=== PATIENT | female | born 1960 | race Caucasian/White ===

== ENCOUNTER → 2016-08-30 | Outpatient (CLI) | payer SELFPAY | LOC: RAD 13:37 | PROVIDERS: ATTEND Family Medicine | DX: M54.5 Low back pain (principal) | CPT/HCPCS: 72110 ==

== ENCOUNTER 2016-10-28 16:33 | Emergency (ER) | payer SELFPAY ==
[2016-10-28 17:51] LABS: ABSOLUTE EOSINOPHILS # (AUTO) 0.2 10^3/uL (0.0-0.6); ABSOLUTE LYMPHOCYTES (AUTO) 1.8 10^3/uL (0.5-4.7); ABSOLUTE MONOCYTES (AUTO) 0.4 10^3/uL (0.1-1.4); ABSOLUTE NEUT (AUTO) 3.1 10^3/uL (1.7-8.2); BASOPHILS % (AUTO) 0.7 % (0-2); EOSINOPHILS % (AUTO) 2.9 % (0-6); HEMATOCRIT 35.3 % (36.0-47.0); HGB HCT DIFFERENCE 0.7; LYMPHOCYTES % (AUTO) 32.3 % (13-45); MEAN CORPUSCULAR HEMOGLOBIN 30.4 pg (27.0-33.4); MEAN CORPUSCULAR HGB CONC 33.9 g/dL (32.0-36.0); MEAN CORPUSCULAR VOLUME 90 fl (80-97); MONOCYTES % (AUTO) 7.9 % (3-13); RED BLOOD COUNT 3.93 10^6/uL (3.72-5.28); RED CELL DISTRIBUTION WIDTH 13.5 % (11.5-14.0); SEGMENTED NEUTROPHILS % (AUTO) 56.2 % (42-78); WHITE BLOOD COUNT 5.5 10^3/uL (4.0-10.5)
[2016-10-28 17:54] LABS: APPEARANCE,URINE CLEAR; BILIRUBIN,URINE NEGATIVE (NEGATIVE); GLUCOSE, URINE >=500 mg/dL (NEGATIVE); KETONES,URINE NEGATIVE (NEGATIVE); LEUKOCYTE ESTERASE,URINE NEGATIVE (NEGATIVE); NITRITE,URINE NEGATIVE (NEGATIVE); PROTEIN,URINE NEGATIVE (NEGATIVE); URINE SPECIFIC GRAVITY 1.016; UROBILINOGEN,URINE NEGATIVE mg/dL (<2.0)
[2016-10-28 18:07] LABS: ALANINE AMINOTRANSFERASE 33 U/L (9-52); ALBUMIN 4.2 g/dL (3.5-5.0); ALKALINE PHOSPHATASE 86 U/L (38-126); ANION GAP 13 (5-19); ASPARTATE AMINO TRANSFERASE 20 U/L (14-36); BILIRUBIN,DIRECT 0.4 mg/dL (0.0-0.4); BILIRUBIN,TOTAL 0.7 mg/dL (0.2-1.3); BLOOD UREA NITROGEN 33 mg/dL (7-20); CALCIUM 9.9 mg/dL (8.4-10.2); CARBON DIOXIDE 29 mmol/L (22-30); CHLORIDE 93 mmol/L (98-107); CREATININE RESULT 1.34 mg/dL (0.52-1.25); GLUCOSE 314 mg/dL (75-110); MAGNESIUM 1.7 mg/dL (1.6-2.3); POTASSIUM 4.1 mmol/L (3.6-5.0); SODIUM 134.9 mmol/L (137-145); TOTAL PROTEIN 7.1 g/dL (6.3-8.2)
[2016-10-28] MEDS ORDERED: ONDANSETRON HCL INJ/PF 4 MG/2 ML SDV IV ONE (19:06)
[2016-10-28] MEDS ORDERED: NORMAL SALINE 1000 ML 1,000 ML IV ONE (19:06)
--- NOTE | 2016-10-28 19:30 | ER Document Report ---
ED General - General Chief Complaint: High Blood Sugar Stated Complaint: SUGAR ISSUE Time Seen by Provider: 10/28/16 17:15 Mode of Arrival: Ambulatory Information source: Patient Notes: 56-year-old female history of diabetes presents with complaints of feeling dizzy. Patient notes her blood sugar has been elevated over the past few days. If it was in the 300s. Patient is on metformin 250 mg daily. Denies any fevers or chills TRAVEL OUTSIDE OF THE [place] IN LAST 30 DAYS: No - HPI Onset: Last week Onset/Duration: Persistent Quality of pain: No pain Severity: Mild Pain Level: Denies Associated symptoms: Weakness Exacerbated by: Denies Relieved by: Denies Similar symptoms previously: Yes Recently seen / treated by doctor: Yes - Related Data Allergies/Adverse Reactions: pseudoephedrine HCl [From Actifed] Allergy (Verified 10/28/16 17:10) ramipril [From Altace] Allergy (Verified 10/28/16 17:10) triprolidine HCl [From Actifed] Allergy (Verified 10/28/16 17:10) lisinopril [Lisinopril] Adverse Reaction (Intermediate, Verified 10/28/16 17:10) Past Medical History - Social History Smoking Status: Never Smoker Cigarette use (# per day): No Chew tobacco use (# tins/day): No Smoking Education Provided: No Frequency of alcohol use: None Drug Abuse: None Family History: CAD, DM, Hypertension, Malignancy - Colon cancer and leukemia, Other - COPD - Past Medical History Cardiac Medical History: Reports: Hx Hypercholesterolemia, Hx Hypertension Denies: Hx Coronary Artery Disease, Hx Heart Attack Pulmonary Medical History: Denies: Hx Asthma, Hx Bronchitis, Hx COPD, Hx Pneumonia Neurological Medical History: Denies: Hx Cerebrovascular Accident, Hx Seizures Endocrine Medical History: Reports: Hx Diabetes Mellitus Type 2 Renal/ Medical History: Denies: Hx Peritoneal Dialysis GI Medical History: Reports: Hx Gastritis, Hx Gastroesophageal Reflux Disease, Hx Irritable Bowel Musculoskeltal Medical History: Reports Hx Arthritis, Reports Hx Fibromyalgia Psychiatric Medical History: Reports: Hx Anxiety, Hx Depression Past Surgical History: Reports: Hx Appendectomy, Hx Section, Hx Cholecystectomy, Hx Orthopedic Surgery - L foot, Hx Tonsillectomy - addenoids, Hx Tubal Ligation. Denies: Hx Hysterectomy, Hx Pacemaker - Immunizations Hx Diphtheria, Pertussis, Tetanus Vaccination: Yes Hx Pneumococcal Vaccination: 06/03/00 Review of Systems - Review of Systems Notes: PHYSICAL EXAMINATION: GENERAL: Well-appearing, well-nourished and in no acute distress. HEAD: Atraumatic, normocephalic. EYES: Pupils equal round and reactive to light, extraocular movements intact, conjunctiva are normal. ENT: Nares patent, oropharynx clear without exudates. Moist mucous membranes. NECK: Normal range of motion, supple without lymphadenopathy LUNGS: Breath sounds clear to auscultation bilaterally and equal. No wheezes rales or rhonchi. HEART: Regular rate and rhythm without murmurs ABDOMEN: Soft, nontender, nondistended abdomen. No guarding, no rebound. No masses appreciated. Female : deferred Musculoskeletal: Normal range of motion, no pitting or edema. No cyanosis. NEUROLOGICAL: Cranial nerves grossly intact. Normal speech, normal gait. Normal sensory, motor exams PSYCH: Normal mood, normal affect. SKIN: Warm, Dry, normal turgor, no rashes or lesions noted. Physical Exam - Vital signs Vitals: Temp Pulse Resp BP Pulse Ox 97.8 F 83 18 151/98 H 100 10/28/16 16:38 10/28/16 16:38 10/28/16 16:38 10/28/16 16:38 10/28/16 16:38 Course - Re-evaluation Re-evalutation: 10/28/16 19:29 Is pending at this time, IV fluids nausea control provided to the patient 10/28/16 23:30 Blood sugar has improved after IV fluids she is otherwise stable in no distress. Given that her lab work otherwise looks well I believe she is stable for discharge. I will increase her metformin to 500 mg given that her hemoglobin A1c is elevated After performing a Medical Screening Examination, I estimate there is LOW risk for ACUTE APPENDICITIS, BOWEL OBSTRUCTION, ACUTE CHOLECYSTITIS, PERFORATED DIVERTICULITIS, INCARCERATED HERNIA, PANCREATITIS, PELVIC INFLAMMATORY DISEASE, PERFORATED ULCER, ECTOPIC , or TUBO-OVARIAN ABSCESS, thus I consider the discharge disposition reasonable. Also, there is no evidence or peritonitis , sepsis, or toxicity. I have reevaluated this patient multiple times and no significant life threatening changes are noted. The patient and I have discussed the diagnosis and risks, and we agree with discharging home with close follow-up with the understanding that symptoms and presentations can change. We also discussed returning to the Emergency Department immediately if new or worsening symptoms occur. We have discussed the symptoms which are most concerning (e.g., bloody stool, fever, changing or worsening pain, vomiting) that necessitate immediate return. - Vital Signs Vital signs: Temp Pulse Resp BP Pulse Ox 97.8 F 83 18 158/87 H 97 10/28/16 16:38 10/28/16 16:38 10/28/16 16:38 10/28/16 21:41 10/28/16 21:39 - Laboratory Result Diagrams: 10/28/16 17:36 10/28/16 17:36 Laboratory results interpreted by me: 10/28/16 10/28/16 10/28/16 17:36 17:36 17:36 Hct 35.3 L Sodium 134.9 L Chloride 93 L BUN 33 H Creatinine 1.34 H Est GFR ( Amer) 50 L Est GFR (Non-Af Amer) 41 L Glucose 314 H Hemoglobin A1c % 10.8 H Urine Glucose (UA) Urine Blood 10/28/16 17:36 Hct Sodium Chloride BUN Creatinine Est GFR ( Amer) Est GFR (Non-Af Amer) Glucose Hemoglobin A1c % Urine Glucose (UA) >=500 H Urine Blood SMALL H Discharge - Discharge Clinical Impression: Hyperglycemia, Nausea Abdominal pain Qualifiers: Abdominal location: generalized Qualified Code(s): R10.84 - Generalized abdominal pain Condition: Stable Disposition: HOME, SELF-CARE Instructions: Hyperglycemia ([facility]) Additional Instructions: Please increase your Metformin to 500 mg and follow-up with your primary care physician. Keep a log for your pcp Return immediately if there are any other concerns
[2016-10-28 19:47] LABS: VENOUS BLOOD BASE EXCESS 1.7 mmol/L; VENOUS BLOOD HCO3 27.3 mmol/L (20-32); VENOUS BLOOD PCO2 46.9 mmHg (35-63); VENOUS BLOOD PH 7.38 (7.30-7.42)
[2016-10-28 21:53] VITALS: BP 158/87
== END 2016-10-28 21:52 | disposition home or self-care (01) ==
LOC: ER 16:33
DX: E11.65 Type 2 diabetes mellitus with hyperglycemia (principal); R11.0 Nausea; R10.84 Generalized abdominal pain; R42 Dizziness and giddiness
CPT/HCPCS: 99285; 96374; 36415; 82962; 83735; 85025; 80053; 81001; 83036; 82803; J2405; J7030

== ENCOUNTER 2017-02-27 10:23 | Emergency (ER) | payer SELFPAY ==
[2017-02-27] MEDS ORDERED: NORMAL SALINE 1000 ML 1,000 ML IV PRN (11:02)
[2017-02-27 11:42] LABS: ABSOLUTE EOSINOPHILS # (AUTO) 0.1 10^3/uL (0.0-0.6); ABSOLUTE LYMPHOCYTES (AUTO) 1.4 10^3/uL (0.5-4.7); ABSOLUTE MONOCYTES (AUTO) 0.4 10^3/uL (0.1-1.4); ABSOLUTE NEUT (AUTO) 3.5 10^3/uL (1.7-8.2); BASOPHILS % (AUTO) 0.6 % (0-2); EOSINOPHILS % (AUTO) 1.7 % (0-6); HEMOGLOBIN 12.6 g/dL (12.0-15.5); HGB HCT DIFFERENCE 0.8; LYMPHOCYTES % (AUTO) 25.2 % (13-45); MEAN CORPUSCULAR HEMOGLOBIN 29.8 pg (27.0-33.4); MEAN CORPUSCULAR HGB CONC 34.2 g/dL (32.0-36.0); MEAN CORPUSCULAR VOLUME 87 fl (80-97); RED BLOOD COUNT 4.24 10^6/uL (3.72-5.28); RED CELL DISTRIBUTION WIDTH 13.3 % (11.5-14.0); SEGMENTED NEUTROPHILS % (AUTO) 65.5 % (42-78); WHITE BLOOD COUNT 5.4 10^3/uL (4.0-10.5)
[2017-02-27] MEDS ORDERED: INSULIN REG, HUMAN 100 UNIT/ML 3 ML VIAL (PYX) IV ONE (11:44)
[2017-02-27 11:46] LABS: VENOUS BLOOD BASE EXCESS -1.4 mmol/L; VENOUS BLOOD HCO3 24.7 mmol/L (20-32); VENOUS BLOOD PCO2 47.3 mmHg (35-63); VENOUS BLOOD PH 7.34 (7.30-7.42)
[2017-02-27 12:03] LABS: ALANINE AMINOTRANSFERASE 26 U/L (9-52); ALBUMIN 4.3 g/dL (3.5-5.0); ALKALINE PHOSPHATASE 101 U/L (38-126); ANION GAP 13 (5-19); ASPARTATE AMINO TRANSFERASE 15 U/L (14-36); BILIRUBIN,DIRECT 0.4 mg/dL (0.0-0.4); BILIRUBIN,TOTAL 0.9 mg/dL (0.2-1.3); BLOOD UREA NITROGEN 36 mg/dL (7-20); CALCIUM 9.8 mg/dL (8.4-10.2); CARBON DIOXIDE 27 mmol/L (22-30); CHLORIDE 89 mmol/L (98-107); CREATININE RESULT 1.33 mg/dL (0.52-1.25); POTASSIUM 4.5 mmol/L (3.6-5.0); SODIUM 129.3 mmol/L (137-145)
[2017-02-27 12:12] LABS: GLUCOSE 525 mg/dL (75-110)
--- NOTE | 2017-02-27 12:52 | ER Document Report ---
ED General - General Chief Complaint: High Blood Sugar Stated Complaint: BLOOD SUGAR CONCERNS ABDOMINAL PAIN Time Seen by Provider: 02/27/17 10:34 Mode of Arrival: Ambulatory Information source: Patient Notes: 57-year-old diabetic female presents with complaints of high blood sugar. Patient has symptoms of been ongoing for 2 weeks blood sugars have been in the 4 -500s. Patient denies any nausea vomiting admits to generalized not feeling well denies any fevers or chills or any signs of pain or infection. Patient notes she takes 1000 mg of metformin twice daily as well as glyburide 5 mg twice daily TRAVEL OUTSIDE OF THE [place] IN LAST 30 DAYS: No - HPI Onset: Other - 2 weeks Onset/Duration: Persistent Quality of pain: No pain Severity: Mild Pain Level: Denies Associated symptoms: Weakness Exacerbated by: Denies Relieved by: Denies Similar symptoms previously: Yes Recently seen / treated by doctor: Yes - Related Data Allergies/Adverse Reactions: pseudoephedrine HCl [From Actifed] Allergy (Verified 02/27/17 10:28) ramipril [From Altace] Allergy (Verified 02/27/17 10:28) triprolidine HCl [From Actifed] Allergy (Verified 02/27/17 10:28) lisinopril [Lisinopril] Adverse Reaction (Intermediate, Verified 02/27/17 10:28) Home Medications: Current Home Medications Chlordiazepoxide/Clidinium Br [Chlordiazepoxide-Clidinium Cap] 1 each PO DAILY 02/27/17 [History] Clonazepam [Clonazepam] 0.5 mg PO BID PRN 02/27/17 [History] Cyclobenzaprine HCl 10 mg PO TID PRN 02/27/17 [History] Glyburide [Glyburide] 5 mg PO QAM 02/27/17 [History] Oxycodone HCl/Acetaminophen [Percocet 10-325 Mg Tablet] 1 each PO BID PRN [History] Triamterene/Hydrochlorothiazid [Triamterene-Hctz 37.5-25 mg Tb] 1 each PO DAILY 02/27/17 [History] Past Medical History - Social History Smoking Status: Never Smoker Cigarette use (# per day): No Chew tobacco use (# tins/day): No Smoking Education Provided: No Frequency of alcohol use: None Drug Abuse: None Family History: CAD, DM, Hypertension, Malignancy - Colon cancer and leukemia, Other - COPD - Past Medical History Cardiac Medical History: Reports: Hx Hypercholesterolemia, Hx Hypertension Denies: Hx Coronary Artery Disease, Hx Heart Attack Pulmonary Medical History: Denies: Hx Asthma, Hx Bronchitis, Hx COPD, Hx Pneumonia Neurological Medical History: Denies: Hx Cerebrovascular Accident, Hx Seizures Endocrine Medical History: Reports: Hx Diabetes Mellitus Type 2 Renal/ Medical History: Denies: Hx Peritoneal Dialysis GI Medical History: Reports: Hx Gastritis, Hx Gastroesophageal Reflux Disease, Hx Irritable Bowel Musculoskeltal Medical History: Reports Hx Arthritis, Reports Hx Fibromyalgia Psychiatric Medical History: Reports: Hx Anxiety, Hx Depression Past Surgical History: Reports: Hx Appendectomy, Hx Section, Hx Cholecystectomy, Hx Orthopedic Surgery - L foot, Hx Tonsillectomy - addenoids, Hx Tubal Ligation. Denies: Hx Hysterectomy, Hx Pacemaker - Immunizations Hx Diphtheria, Pertussis, Tetanus Vaccination: Yes Hx Pneumococcal Vaccination: 06/03/00 Review of Systems - Review of Systems Notes: REVIEW OF SYSTEMS: CONSTITUTIONAL : Denies fever, chills, or sweats. Denies recent illness. EENT: Denies eye, ear, throat, or mouth pain or symptoms. Denies nasal or sinus congestion or discharge. Denies throat, tongue, or mouth swelling or difficulty swallowing. CARDIOVASCULAR: Denies chest pain. Denies palpitations or racing or irregular heart beat. Denies ankle edema. RESPIRATORY: Denies cough, cold, or chest congestion. Denies shortness of breath, difficulty breathing, or wheezing. GASTROINTESTINAL: Denies abdominal pain or distention. Denies nausea, vomiting , or diarrhea. Denies blood in vomitus, stools, or per rectum. Denies black, tarry stools. Denies constipation. GENITOURINARY: Denies difficulty urinating, painful urination, burning, frequency, blood in urine, or discharge. FEMALE GENITOURINARY: Denies vaginal bleeding, heavy or abnormal periods, irregular periods. Denies vaginal discharge or odor. MUSCULOSKELETAL: Denies back or neck pain or stiffness. Denies joint pain or swelling. SKIN: Denies rash, lesions or sores. HEMATOLOGIC : Denies easy bruising or bleeding. LYMPHATIC: Denies swollen, enlarged glands. NEUROLOGICAL: Admits to generalized weakness PSYCHIATRIC: Denies anxiety or stress. Denies depression, suicidal ideation, or homicidal ideation. ALL OTHER SYSTEMS REVIEWED AND NEGATIVE. PHYSICAL EXAMINATION: GENERAL: Well-appearing, well-nourished and in no acute distress. HEAD: Atraumatic, normocephalic. EYES: Pupils equal round and reactive to light, extraocular movements intact, conjunctiva are normal. ENT: Nares patent, oropharynx clear without exudates. Moist mucous membranes. NECK: Normal range of motion, supple without lymphadenopathy LUNGS: Breath sounds clear to auscultation bilaterally and equal. No wheezes rales or rhonchi. HEART: Regular rate and rhythm without murmurs ABDOMEN: Soft, nontender, nondistended abdomen. No guarding, no rebound. No masses appreciated. Female : deferred Musculoskeletal: Normal range of motion, no pitting or edema. No cyanosis. NEUROLOGICAL: Cranial nerves grossly intact. Normal speech, normal gait. Normal sensory, motor exams PSYCH: Normal mood, normal affect. SKIN: Warm, Dry, normal turgor, no rashes or lesions noted. Dictation was performed using [employer] voice recognition software Physical Exam - Vital signs Vitals: Temp Pulse Resp BP Pulse Ox 97.5 F 90 18 135/95 H 100 02/27/17 10:27 02/27/17 10:27 02/27/17 10:27 02/27/17 10:27 02/27/17 10:27 Course - Re-evaluation Re-evalutation: 02/27/17 12:52 Blood sugar was quite elevated, lab work otherwise notes no significant abnormality, there is no signs of diabetic ketoacidosis at this time. I will bring patient's blood sugar down and speak with hospitalist regarding outpatient treatment 02/27/17 16:09 Patient's blood sugar has improved significantly after fluids and insulin, I asked the patient to please call her primary care physician immediately upon discharge so that they can change her medications around Patient states she will do so and otherwise feels much better After performing a Medical Screening Examination, I estimate there is LOW risk for RUPTURED ESOPHAGUS, PNEUMOTHORAX, PULMONARY EMBOLISM, ACUTE CORONARY SYNDROME, OR THORACIC AORTIC DISSECTION, thus I consider the discharge disposition reasonable. I have reevaluated this patient multiple times and no significant life threatening changes are noted. The patient and I have discussed the diagnosis and risks, and we agree with discharging home with close follow-up. We also discussed returning to the Emergency Department immediately if new or worsening symptoms occur. We have discussed the symptoms which are most concerning (e.g., bloody sputum, worsening pain or shortness of breath) that necessitate immediate return. - Vital Signs Vital signs: Temp Pulse Resp BP Pulse Ox 98.0 F 86 16 131/79 H 100 02/27/17 13:41 02/27/17 13:41 02/27/17 13:41 02/27/17 13:41 02/27/17 13:41 - Laboratory Result Diagrams: 02/27/17 11:20 02/27/17 11:20 Laboratory results interpreted by me: 02/27/17 02/27/17 02/27/17 10:32 11:20 11:20 Sodium 129.3 L Chloride 89 L BUN 36 H Creatinine 1.33 H Est GFR ( Amer) 50 L Est GFR (Non-Af Amer) 41 L Glucose 525 H* POC Glucose 523 H* Hemoglobin A1c % 12.1 H Urine Glucose (UA) Urine Blood 02/27/17 13:10 Sodium Chloride BUN Creatinine Est GFR ( Amer) Est GFR (Non-Af Amer) Glucose POC Glucose Hemoglobin A1c % Urine Glucose (UA) >=500 H Urine Blood SMALL H Critical Care Note - Critical Care Note Total time excluding time spent on procedures (mins): 37 Comments: 37 minutes of critical care time spent in direct contact evaluating and reevaluating the patient, treating symptoms, reviewing labs and studies and speaking with family and consultants excluding any procedures Discharge - Discharge Clinical Impression: Hyperglycemia Condition: Stable Disposition: HOME, SELF-CARE Instructions: Hyperglycemia ([facility]) Additional Instructions: Please contact Dr. Rene for further evaluation and care Return immediately if there are any other concerns Referrals: CAITLIN RENE MD [Primary Care Provider] - Follow up as needed
[2017-02-27 13:43] VITALS: BP 131/79
[2017-02-27 13:49] LABS: APPEARANCE,URINE SLIGHTLY-CLOUDY; BILIRUBIN,URINE NEGATIVE (NEGATIVE); GLUCOSE, URINE >=500 mg/dL (NEGATIVE); KETONES,URINE NEGATIVE (NEGATIVE); LEUKOCYTE ESTERASE,URINE NEGATIVE (NEGATIVE); NITRITE,URINE NEGATIVE (NEGATIVE); PROTEIN,URINE NEGATIVE (NEGATIVE); URINE SPECIFIC GRAVITY 1.015; UROBILINOGEN,URINE NEGATIVE mg/dL (<2.0)
== END 2017-02-27 14:41 | disposition home or self-care (01) ==
LOC: ER 10:23
DX: E11.65 Type 2 diabetes mellitus with hyperglycemia (principal); Z79.84 Long term (current) use of oral hypoglycemic drugs; R53.1 Weakness; I10 Essential (primary) hypertension; Z88.8 Allergy status to other drugs, medicaments and biological substances
CPT/HCPCS: 99291; 96360; 96361; 36415; 82962; 85025; 80053; 81001; 83036; 82803; J1815; J7030

== ENCOUNTER 2018-01-14 09:18 | Emergency (ER) | payer SELFPAY ==
[2018-01-14] MEDS ORDERED: NORMAL SALINE 1000 ML 1,000 ML IV ONE ×2 (10:09→11:01)
[2018-01-14] MEDS ORDERED: ONDANSETRON HCL INJ/PF 4 MG/2 ML SDV IV ONE (10:09)
[2018-01-14] MEDS ORDERED: INSULIN REG, HUMAN 100 UNIT/ML 3 ML VIAL (PYX) SUBCUT ONE (10:15)
--- NOTE | 2018-01-14 10:16 | ER Document Report ---
ED General - General Chief Complaint: High Blood Sugar Stated Complaint: ELEVATED BLOOD SUGAR Time Seen by Provider: 01/14/18 10:05 TRAVEL OUTSIDE OF THE [place] IN LAST 30 DAYS: No - HPI Patient complains to provider of: Elevated blood sugar Notes: Patient coming in for evaluation of low blood sugar. Patient has history of diabetes hypertension. Patient sees Dr. Rene at the [facility]. Patient states compliant with her Lantus 15 units each morning and at nighttime. Patient states also had some nausea and mild abdominal pain. Patient denies any recent travel trauma or recent antibiotics. Patient resting comfortably upon my evaluation. Patient previous visits were reviewed showing hemoglobin A1c is greater than 10. - Related Data Allergies/Adverse Reactions: pseudoephedrine HCl [From Actifed] Allergy (Verified 01/14/18 09:23) ramipril [From Altace] Allergy (Verified 01/14/18 09:23) triprolidine HCl [From Actifed] Allergy (Verified 01/14/18 09:23) lisinopril [Lisinopril] Adverse Reaction (Intermediate, Verified 01/14/18 09:23) Past Medical History - Social History Smoking Status: Current Every Day Smoker Chew tobacco use (# tins/day): No Frequency of alcohol use: None Drug Abuse: None Family History: CAD, DM, Hypertension, Malignancy - Colon cancer and leukemia, Other - COPD Patient has suicidal ideation: No Patient has homicidal ideation: No - Past Medical History Cardiac Medical History: Reports: Hx Hypercholesterolemia, Hx Hypertension Denies: Hx Coronary Artery Disease, Hx Heart Attack Pulmonary Medical History: Denies: Hx Asthma, Hx Bronchitis, Hx COPD, Hx Pneumonia Neurological Medical History: Denies: Hx Cerebrovascular Accident, Hx Seizures Endocrine Medical History: Reports: Hx Diabetes Mellitus Type 2 Renal/ Medical History: Denies: Hx Peritoneal Dialysis GI Medical History: Reports: Hx Gastritis, Hx Gastroesophageal Reflux Disease, Hx Irritable Bowel Musculoskeletal Medical History: Reports Hx Arthritis, Reports Hx Fibromyalgia Psychiatric Medical History: Reports: Hx Anxiety, Hx Depression Past Surgical History: Reports: Hx Appendectomy, Hx Section, Hx Cholecystectomy, Hx Orthopedic Surgery - L foot, Hx Tonsillectomy - addenoids, Hx Tubal Ligation. Denies: Hx Hysterectomy, Hx Pacemaker - Immunizations Hx Diphtheria, Pertussis, Tetanus Vaccination: Yes Hx Pneumococcal Vaccination: 01/01/01 Review of Systems - Review of Systems Constitutional: Other - Elevated blood sugar nausea abdominal pain EENT: No symptoms reported Cardiovascular: No symptoms reported Respiratory: No symptoms reported Gastrointestinal: No symptoms reported Genitourinary: No symptoms reported Female Genitourinary: No symptoms reported Musculoskeletal: No symptoms reported Skin: No symptoms reported Hematologic/Lymphatic: No symptoms reported Neurological/Psychological: No symptoms reported Physical Exam - Vital signs Interpretation: Normal - General General appearance: Appears well, Alert - HEENT Head: Normocephalic, Atraumatic Eyes: Normal Pupils: PERRL - Respiratory Respiratory status: No respiratory distress Chest status: Nontender Breath sounds: Normal Chest palpation: Normal - Cardiovascular Rhythm: Regular Heart sounds: Normal auscultation Murmur: No - Abdominal Inspection: Normal Distension: No distension Bowel sounds: Normal Tenderness: Nontender Organomegaly: No organomegaly - Back Back: Normal, Nontender - Extremities General upper extremity: Normal inspection, Nontender, Normal color, Normal ROM , Normal temperature General lower extremity: Normal inspection, Nontender, Normal color, Normal ROM , Normal temperature, Normal weight bearing. No: Sandee's sign - Neurological Neuro grossly intact: Yes Cognition: Normal Orientation: AAOx4 [place] Coma Scale Eye Opening: Spontaneous [place] Coma Scale Verbal: Oriented Eddie Coma Scale Motor: Obeys Commands Eddie Coma Scale Total: 15 Speech: Normal Motor strength normal: LUE, RUE, LLE, RLE Sensory: Normal - Psychological Associated symptoms: Normal affect, Normal mood - Skin Skin Temperature: Warm Skin Moisture: Dry Skin Color: Normal Course - Re-evaluation Re-evalutation: 01/14/18 20:10 No signs of DKA tedious and the patient has laboratory studies. Patient does have some hyperkalemia however this is more likely now been treated with IV fluids and the insulin provided. Patient feeling better blood sugar is downtrending patient is continue all medications. Did have a director social service contact the patient so they can establish follow-up patient states understanding will be discharged home. - Laboratory Result Diagrams: 01/14/18 10:11 01/14/18 10:11 Laboratory results interpreted by me: 01/14/18 01/14/18 01/14/18 10:11 10:11 10:11 Seg Neutrophils % 80.3 H Sodium 134.5 L Potassium 5.4 H Chloride 94 L BUN 24 H Est GFR ( Amer) 59 L Est GFR (Non-Af Amer) 49 L Glucose 583 H* POC Glucose Hemoglobin A1c % 10.8 H Alkaline Phosphatase 130 H 01/14/18 01/14/18 10:25 12:07 Seg Neutrophils % Sodium Potassium Chloride BUN Est GFR ( Amer) Est GFR (Non-Af Amer) Glucose POC Glucose > 550 H* 395 H Hemoglobin A1c % Alkaline Phosphatase Discharge - Discharge Clinical Impression: Hyperglycemia, Nausea Condition: Good Disposition: HOME, SELF-CARE Instructions: Hyperglycemia ([facility]), Nausea or Vomiting, Nonspecific ([facility]) Additional Instructions: Laboratories there is no urine critical pathology at this time. Will recommend she follow-up with her primary care physician and return to the ER symptoms worsen. Please take all your medication as previously prescribed. Prescriptions: Ondansetron [Zofran Odt] 4 mg PO Q6 PRN #30 tab.rapdis PRN Reason: For Nausea/Vomiting Referrals: CAITLIN RENE MD [Primary Care Provider] - Follow up as needed
[2018-01-14 10:27] LABS: ABSOLUTE BASOPHILS # (AUTO) 0.1 10^3/uL (0.0-0.2); ABSOLUTE EOSINOPHILS # (AUTO) 0.1 10^3/uL (0.0-0.6); ABSOLUTE LYMPHOCYTES (AUTO) 1.1 10^3/uL (0.5-4.7); ABSOLUTE MONOCYTES (AUTO) 0.4 10^3/uL (0.1-1.4); ABSOLUTE NEUT (AUTO) 6.7 10^3/uL (1.7-8.2); BASOPHILS % (AUTO) 0.8 % (0-2); HEMATOCRIT 41.7 % (36.0-47.0); HEMOGLOBIN 14.4 g/dL (12.0-15.5); MEAN CORPUSCULAR HEMOGLOBIN 30.5 pg (27.0-33.4); MEAN CORPUSCULAR HGB CONC 34.5 g/dL (32.0-36.0); MEAN CORPUSCULAR VOLUME 88 fl (80-97); MONOCYTES % (AUTO) 4.9 % (3-13); PLATELET COUNT 222 10^3/uL (150-450); RED BLOOD COUNT 4.71 10^6/uL (3.72-5.28); RED CELL DISTRIBUTION WIDTH 13.7 % (11.5-14.0); SEGMENTED NEUTROPHILS % (AUTO) 80.3 % (42-78); TOTAL CELLS COUNTED % (AUTO) 100 %; WHITE BLOOD COUNT 8.3 10^3/uL (4.0-10.5)
[2018-01-14 10:39] LABS: ALANINE AMINOTRANSFERASE 16 U/L (9-52); ALBUMIN 4.3 g/dL (3.5-5.0); ALKALINE PHOSPHATASE 130 U/L (38-126); ANION GAP 11 (5-19); ASPARTATE AMINO TRANSFERASE 15 U/L (14-36); BILIRUBIN,DIRECT 0.3 mg/dL (0.0-0.4); BILIRUBIN,TOTAL 0.7 mg/dL (0.2-1.3); BLOOD UREA NITROGEN 24 mg/dL (7-20); CALCIUM 9.8 mg/dL (8.4-10.2); CARBON DIOXIDE 30 mmol/L (22-30); CHLORIDE 94 mmol/L (98-107); LIPASE 112.2 U/L (23-300); POTASSIUM 5.4 mmol/L (3.6-5.0); SODIUM 134.5 mmol/L (137-145); TOTAL PROTEIN 7.6 g/dL (6.3-8.2)
[2018-01-14 10:54] LABS: GLUCOSE 583 mg/dL (75-110)
== END 2018-01-14 12:43 | disposition home or self-care (01) ==
LOC: ER 09:18
DX: E11.65 Type 2 diabetes mellitus with hyperglycemia (principal); Z79.4 Long term (current) use of insulin; E87.5 Hyperkalemia; I10 Essential (primary) hypertension; R11.0 Nausea; R10.9 Unspecified abdominal pain; F17.200 Nicotine dependence, unspecified, uncomplicated; Z88.8 Allergy status to other drugs, medicaments and biological substances
CPT/HCPCS: 99285; 96361; 96374; 36415; 82962; 83690; 85025; 80053; 83036; J1815; J2405; J7030

== ENCOUNTER 2018-03-06 17:32 | Emergency (ER) | payer SELFPAY ==
[2018-03-06 17:40] VITALS: BP 135/99
--- NOTE | 2018-03-06 17:58 | ER Document Report ---
ED Medical Screen (RME) - General Chief Complaint: High Blood Sugar Stated Complaint: BLOOD SUGAR ISSUES Time Seen by Provider: 03/06/18 17:54 Notes: 58-year-old poorly controlled diabetic complains of increased blood sugars for 5 days running in the 470 500 range and "cannot get it down". She also complains of blood pressure being elevated, legs are so weak she has trouble standing, has pain in her kidneys, and is having chest pain around her pancreas. There is no history of vomiting or fever. I have greeted and performed a rapid initial assessment of this patient. A comprehensive ED assessment and evaluation of the patient, analysis of test results and completion of the medical decision making process will be conducted by additional ED providers. TRAVEL OUTSIDE OF THE [place] IN LAST 30 DAYS: No - Related Data Allergies/Adverse Reactions: pseudoephedrine HCl [From Actifed] Allergy (Verified 03/06/18 17:35) ramipril [From Altace] Allergy (Verified 03/06/18 17:35) triprolidine HCl [From Actifed] Allergy (Verified 03/06/18 17:35) lisinopril [Lisinopril] Adverse Reaction (Intermediate, Verified 03/06/18 17:35) Past Medical History - Past Medical History Cardiac Medical History: Reports: Hx Hypercholesterolemia, Hx Hypertension Denies: Hx Coronary Artery Disease, Hx Heart Attack Pulmonary Medical History: Denies: Hx Asthma, Hx Bronchitis, Hx COPD, Hx Pneumonia Neurological Medical History: Denies: Hx Cerebrovascular Accident, Hx Seizures Endocrine Medical History: Reports: Hx Diabetes Mellitus Type 2 Renal/ Medical History: Denies: Hx Peritoneal Dialysis GI Medical History: Reports: Hx Gastritis, Hx Gastroesophageal Reflux Disease, Hx Irritable Bowel Musculoskeltal Medical History: Reports Hx Arthritis, Reports Hx Fibromyalgia Psychiatric Medical History: Reports: Hx Anxiety, Hx Depression Past Surgical History: Reports: Hx Appendectomy, Hx Section, Hx Cholecystectomy, Hx Orthopedic Surgery - L foot, Hx Tonsillectomy - addenoids, Hx Tubal Ligation. Denies: Hx Hysterectomy, Hx Pacemaker - Immunizations Hx Diphtheria, Pertussis, Tetanus Vaccination: Yes Physical Exam - Vital signs Vitals: Temp Pulse Resp BP Pulse Ox 97.4 F 85 16 135/99 H 98 03/06/18 17:39 03/06/18 17:39 03/06/18 17:39 03/06/18 17:39 03/06/18 17:39 Course - Vital Signs Vital signs: Temp Pulse Resp BP Pulse Ox 97.4 F 85 16 135/99 H 98 03/06/18 17:39 03/06/18 17:39 03/06/18 17:39 03/06/18 17:39 03/06/18 17:39 Doctor's Discharge - Discharge Referrals: CAITLIN SUMMERS MD [Primary Care Provider] - Follow up as needed
[2018-03-06 18:38] LABS: ABSOLUTE BASOPHILS # (AUTO) 0.1 10^3/uL (0.0-0.2); ABSOLUTE EOSINOPHILS # (AUTO) 0.1 10^3/uL (0.0-0.6); ABSOLUTE LYMPHOCYTES (AUTO) 1.5 10^3/uL (0.5-4.7); ABSOLUTE MONOCYTES (AUTO) 0.7 10^3/uL (0.1-1.4); ABSOLUTE NEUT (AUTO) 7.5 10^3/uL (1.7-8.2); BASOPHILS % (AUTO) 0.6 % (0-2); EOSINOPHILS % (AUTO) 0.7 % (0-6); HEMATOCRIT 43.5 % (36.0-47.0); HEMOGLOBIN 15.2 g/dL (12.0-15.5); LYMPHOCYTES % (AUTO) 15.2 % (13-45); MEAN CORPUSCULAR HEMOGLOBIN 30.8 pg (27.0-33.4); MEAN CORPUSCULAR HGB CONC 34.9 g/dL (32.0-36.0); MEAN CORPUSCULAR VOLUME 88 fl (80-97); MONOCYTES % (AUTO) 6.7 % (3-13); PLATELET COUNT 244 10^3/uL (150-450); RED BLOOD COUNT 4.92 10^6/uL (3.72-5.28); RED CELL DISTRIBUTION WIDTH 13.3 % (11.5-14.0); SEGMENTED NEUTROPHILS % (AUTO) 76.8 % (42-78); TOTAL CELLS COUNTED % (AUTO) 100 %; WHITE BLOOD COUNT 9.8 10^3/uL (4.0-10.5)
[2018-03-06 18:50] LABS: ALANINE AMINOTRANSFERASE 19 U/L (9-52); ALBUMIN 4.5 g/dL (3.5-5.0); ALKALINE PHOSPHATASE 122 U/L (38-126); ANION GAP 15 (5-19); ASPARTATE AMINO TRANSFERASE 17 U/L (14-36); BILIRUBIN,DIRECT 0.6 mg/dL (0.0-0.4); BILIRUBIN,TOTAL 1.1 mg/dL (0.2-1.3); BLOOD UREA NITROGEN 35 mg/dL (7-20); CALCIUM 9.7 mg/dL (8.4-10.2); CARBON DIOXIDE 31 mmol/L (22-30); CHLORIDE 84 mmol/L (98-107); CREATINE KINASE 35 U/L (30-135); LIPASE 226.9 U/L (23-300); POTASSIUM 4.1 mmol/L (3.6-5.0); SODIUM 129.8 mmol/L (137-145); TOTAL PROTEIN 7.5 g/dL (6.3-8.2)
[2018-03-06 18:59] LABS: GLUCOSE 557 mg/dL (75-110)
[2018-03-06 19:01] LABS: CREATINE KINASE MB 1.73 ng/mL (<4.55); TROPONIN I 0.013 ng/mL
[2018-03-06 19:28] LABS: APPEARANCE,URINE SLIGHTLY-CLOUDY; BILIRUBIN,URINE NEGATIVE (NEGATIVE); COLOR,URINE YELLOW; GLUCOSE, URINE >=500 mg/dL (NEGATIVE); KETONES,URINE TRACE mg/dL (NEGATIVE); LEUKOCYTE ESTERASE,URINE NEGATIVE (NEGATIVE); NITRITE,URINE NEGATIVE (NEGATIVE); PROTEIN,URINE NEGATIVE (NEGATIVE); URINE SPECIFIC GRAVITY 1.025; UROBILINOGEN,URINE NEGATIVE mg/dL (<2.0)
[2018-03-06] MEDS ORDERED: NORMAL SALINE 1000 ML 1,000 ML IV PRN (19:40)
[2018-03-06] MEDS ORDERED: ONDANSETRON HCL INJ/PF 4 MG/2 ML SDV IV ONE (19:42)
[2018-03-06] MEDS ORDERED: INSULIN REG, HUMAN 100 UNIT/ML 3 ML VIAL (PYX) SUBCUT ONE (20:03)
[2018-03-06] MEDS ORDERED: RINGERS SOLUTION,LACTATED 1,000 ML IV ONE (20:03)
[2018-03-06] MEDS ORDERED: INSULIN GLARGINE,HUM.REC.ANLOG 1,000 UNIT/10 ML UNIT SUBCUT ONE (20:04)
--- NOTE | 2018-03-06 20:11 | ER Document Report ---
ED General - General Chief Complaint: High Blood Sugar Stated Complaint: BLOOD SUGAR ISSUES Time Seen by Provider: 03/06/18 17:54 Notes: Patient is a 58-year-old female with a past medical history of hypertension, hyperlipidemia, type 2 diabetes with poor glycemic control who presents with concerns of hypoglycemia and feeling generally fatigued. The patient is very concerned because her blood sugars have been consistently 4500 for the past 1-2 weeks. She has been taking all medications as prescribed by her primary care doctor but states that this has not been adequately controlling her blood sugars. She has attempted to come reach out to her primary care doctor's office but has not received a call back. She denies any focal abdominal pain, shortness of breath, weakness, numbness or confusion. She reports that she has had some intermittent chest discomfort although none for the last 24-48 hours. Describes as a stabbing, aching pain diffuse to lead to her chest. She denies any current chest discomfort. She states that she has felt similar in the past when she has had out of control blood sugars. TRAVEL OUTSIDE OF THE [place] IN LAST 30 DAYS: No - Related Data Allergies/Adverse Reactions: pseudoephedrine HCl [From Actifed] Allergy (Verified 03/06/18 17:35) ramipril [From Altace] Allergy (Verified 03/06/18 17:35) triprolidine HCl [From Actifed] Allergy (Verified 03/06/18 17:35) lisinopril [Lisinopril] Adverse Reaction (Intermediate, Verified 03/06/18 17:35) Past Medical History - General Information source: Patient - Social History Smoking Status: Former Smoker Frequency of alcohol use: None Drug Abuse: None Lives with: Family Family History: CAD, DM, Hypertension, Malignancy - Colon cancer and leukemia, Other - COPD Patient has suicidal ideation: No Patient has homicidal ideation: No - Past Medical History Cardiac Medical History: Reports: Hx Hypercholesterolemia, Hx Hypertension Denies: Hx Coronary Artery Disease, Hx Heart Attack Pulmonary Medical History: Denies: Hx Asthma, Hx Bronchitis, Hx COPD, Hx Pneumonia Neurological Medical History: Denies: Hx Cerebrovascular Accident, Hx Seizures Endocrine Medical History: Reports: Hx Diabetes Mellitus Type 2 Renal/ Medical History: Denies: Hx Peritoneal Dialysis GI Medical History: Reports: Hx Gastritis, Hx Gastroesophageal Reflux Disease, Hx Irritable Bowel Musculoskeletal Medical History: Reports Hx Arthritis, Reports Hx Fibromyalgia Psychiatric Medical History: Reports: Hx Anxiety, Hx Depression Past Surgical History: Reports: Hx Appendectomy, Hx Section, Hx Cholecystectomy, Hx Orthopedic Surgery - L foot, Hx Tonsillectomy - addenoids, Hx Tubal Ligation. Denies: Hx Hysterectomy, Hx Pacemaker - Immunizations Hx Diphtheria, Pertussis, Tetanus Vaccination: Yes Hx Pneumococcal Vaccination: 06/03/00 Review of Systems - Review of Systems Notes: Constitutional: Negative for fever. HENT: Negative for sore throat. Eyes: Negative for visual changes. Cardiovascular: Positive for chest pain. Respiratory: Negative for shortness of breath. Gastrointestinal: Negative for abdominal pain, vomiting or diarrhea. Genitourinary: Negative for dysuria. Musculoskeletal: Negative for back pain. Skin: Negative for rash. Neurological: Negative for headaches, weakness or numbness. 10 point ROS negative except as marked above and in HPI. Physical Exam - Vital signs Vitals: Temp Pulse Resp BP Pulse Ox 97.4 F 85 16 135/99 H 98 03/06/18 17:39 03/06/18 17:39 03/06/18 17:39 03/06/18 17:39 03/06/18 17:39 Interpretation: Normal Notes: Food PHYSICAL EXAMINATION: GENERAL: Well-appearing, well-nourished and in no acute distress. HEAD: Atraumatic, normocephalic. EYES: Pupils equal round and reactive to light, extraocular movements intact, sclera anicteric, conjunctiva are normal. ENT: nares patent, oropharynx clear without exudates. Moderately dry mucous membranes. NECK: Normal range of motion, supple without lymphadenopathy LUNGS: Breath sounds clear to auscultation bilaterally and equal. No wheezes rales or rhonchi. HEART: Regular rate and rhythm without murmurs ABDOMEN: Soft, nontender, normoactive bowel sounds. No guarding, no rebound. No masses appreciated. EXTREMITIES: Normal range of motion, no pitting or edema. No cyanosis. NEUROLOGICAL: Face symmetric. Tongue protrudes midline. Extraocular motions intact. Pupils are 2 mm and equally reactive. Normal speech, normal gait. 5 out of 5 strength in both the distal and proximal upper and lower extremities bilaterally. Sensation is grossly intact throughout. Finger to nose testing normal. Pronator drift normal. PSYCH: Normal mood, normal affect. SKIN: Warm, Dry, normal turgor, no rashes or lesions noted. Course - Re-evaluation Re-evalutation: 03/06/18 20:11 Presentation of asymptomatic hyperglycemia. There is no evidence of HHS or diabetic ketoacidosis on laboratories or based on clinical history. Patient's vitals are within normal limits. They deny any acute focal complaints. Treatment with insulin and IV fluids given here in the emergency department with appropriate response of the blood sugar. Patient does have primary care follow-up. I have emphasized the patient that it appears she needs sliding scale insulin throughout the day, I have increased her Lantus to 40 units daily , increase her metformin to thousand milligrams twice daily. I have emphasized that she would likely require an endocrinology referral as her A1c has been over 12 for at least 1 year. The patient also complained of some chest discomfort that has been intermittent over the last 5 days. Low clinical suspicion for ACS given clinical history, exam, EKG without ST elevations or depressions, and negative initial troponin. HEART score less than or equal to 3. PE also seems unlikely given clinical history, absence of tachycardia or dyspnea. Wells score is 0. Clinical history inconsistent with an acute pneumothorax given the absence of shortness of breath, clear breath sounds bilaterally. Patient has had symptoms chronically over the last proximal he 1 week, very low clinical suspicion for life-threatening etiology of his chest discomfort which she describes more as a discomfort in her epigastrium. At this time will discharge with return precautions and follow-up recommendations. Verbal discharge instructions given a the bedside and opportunity for questions given. Medication warnings reviewed. Patient is in agreement with this plan and has verbalized understanding of return precautions and the need for primary care follow-up in the next 24-72 hours. - Vital Signs Vital signs: Temp Pulse Resp BP Pulse Ox 97.4 F 85 16 135/99 H 98 03/06/18 17:39 03/06/18 17:39 03/06/18 17:39 03/06/18 17:39 03/06/18 17:39 - Laboratory Result Diagrams: 03/06/18 18:25 03/06/18 18:25 Laboratory results interpreted by me: 03/06/18 03/06/18 03/06/18 18:25 18:25 19:00 Sodium 129.8 L Chloride 84 L Carbon Dioxide 31 H BUN 35 H Creatinine 1.49 H Est GFR ( Amer) 43 L Est GFR (Non-Af Amer) 36 L Glucose 557 H* Hemoglobin A1c % 12.2 H Direct Bilirubin 0.6 H Urine Glucose (UA) >=500 H Urine Ketones TRACE H Discharge - Discharge Clinical Impression: Nausea, Hyperglycemia, Dehydration, Chest discomfort Condition: Stable Disposition: HOME, SELF-CARE Additional Instructions: You need to followup urgently with your primary care doctor as your blood sugars were dangerously high today. You did not have any evidence of a dangerous condition associated with these blood sugars at this time. However, it is very important that you get your blood sugars under control. Please take all of your medications exactly as directed. I advise you to increase your Lantus to 40 units nightly. Please also increase the your metformin from 500 mg twice daily to 1000 mg twice daily. You should avoid foods that are high in carbohydrates and sugary foods. Losing weight will also help to better control your blood sugars. Please return to emergency department immediately if you develop weakness, persistent vomiting, confusion, or any other symptoms that are concerning to you. Prescriptions: Insulin Glargine,Hum.rec.anlog [Lantus Insulin Inj 300 Unit/3 ml Pen] 40 unit SUBCUT QHS #2 each Metformin HCl 1,000 mg PO BID #60 tablet Referrals: CAITLIN SUMMERS MD [NO LOCAL MD] - Follow up as needed SKYLER MAO MD [ACTIVE STAFF] - Follow up in 3-5 days
--- NOTE | 2018-03-06 20:26 | EKG REPORT ---
SEVERITY:- ABNORMAL ECG - SINUS RHYTHM PROBABLE LEFT ATRIAL ABNORMALITY ST ELEVATION SUGGESTS PERICARDITIS VS EARLY REPOL CHANGES : Confirmed by: Aurelio Lovell 06-Mar-2018 20:25:25
== END 2018-03-06 22:09 | disposition home or self-care (01) ==
LOC: ER 17:32
DX: E11.649 Type 2 diabetes mellitus with hypoglycemia without coma (principal); R07.9 Chest pain, unspecified; R11.0 Nausea; E86.0 Dehydration; E78.00 Pure hypercholesterolemia, unspecified; I10 Essential (primary) hypertension; Z88.6 Allergy status to analgesic agent; Z90.49 Acquired absence of other specified parts of digestive tract; Z98.51 Tubal ligation status
CPT/HCPCS: 93005; 99285; 96361; 96374; 36415; 82553; 82962; 82550; 83690; 85025; 80053; 81001; 84484; 83036; 93010; J1815 ×2; J2405; J7120

== ENCOUNTER → 2018-03-31 | Outpatient (CLI) | payer OTHER ==
--- NOTE | 2018-03-31 14:36 | RADIOLOGY REPORT (SQ) ---
EXAM DESCRIPTION: SACRUM AND COCCYX COMPLETED DATE/TIME: 03/31/2018 2:20 pm REASON FOR STUDY: SCOLIOSIS, MID BACK PAIN M25.579 PAIN IN UNSPECIFIED ANKLE AND JOINTS OF UNSPECIF IED COMPARISON: None. NUMBER OF VIEWS: Three views. TECHNIQUE: AP, lateral, and tilt views of the sacrum and coccyx. LIMITATIONS: None. FINDINGS: MINERALIZATION: Normal. BONES: No acute fracture or dislocation. No worrisome bone lesions. SOFT TISSUES: No soft tissue swelling. No foreign body. OTHER: No other significant finding. IMPRESSION: NEGATIVE STUDY OF THE SACRUM AND COCCYX. TECHNICAL DOCUMENTATION: JOB ID: [id number] [employer]- All Rights Reserved Reading location - IP/workstation name: [email or web address]
--- NOTE | 2018-03-31 14:40 | RADIOLOGY REPORT (SQ) ---
EXAM DESCRIPTION: T SPINE AP/LAT COMPLETED DATE/TIME: 03/31/2018 2:20 pm REASON FOR STUDY: SCOLIOSIS, MID BACK PAIN M25.579 PAIN IN UNSPECIFIED ANKLE AND JOINTS OF UNSPECIF IED COMPARISON: None. NUMBER OF VIEWS: Two views. TECHNIQUE: AP and lateral radiographic images acquired of the thoracic spine. LIMITATIONS: None. FINDINGS: MINERALIZATION: Normal. ALIGNMENT: There is a mi thoracic scoliosis convex to the right which may be positional in nature. VERTEBRAE: No fracture or bone lesion. Maintained height, normal segmentation. DISCS: No significant loss of height or significant narrowing. No large osteophytes. HARDWARE: None in the spine. MEDIASTINUM AND SOFT TISSUES: Normal heart size and aortic contour. No soft tissue abnormality. VISUALIZED LUNG [place]: Clear. OTHER: No other significant finding. IMPRESSION: NO SIGNIFICANT RADIOGRAPHIC FINDING IN THE THORACIC SPINE. TECHNICAL DOCUMENTATION: JOB ID: [id number] [employer]- All Rights Reserved Reading location - IP/workstation name: [email or web address]
--- NOTE | 2018-03-31 14:57 | RADIOLOGY REPORT (SQ) ---
EXAM DESCRIPTION: LUMBAR SPINE 2 VIEWS COMPLETED DATE/TIME: 03/31/2018 2:20 pm REASON FOR STUDY: SCOLIOSIS, MID BACK PAIN M25.579 PAIN IN UNSPECIFIED ANKLE AND JOINTS OF UNSPECIF IED COMPARISON: 08/30/2016 NUMBER OF VIEWS: Two views. TECHNIQUE: AP and lateral radiographic images acquired of the lumbar spine. LIMITATIONS: None. FINDINGS: MINERALIZATION: Normal. SEGMENTATION: Normal. No transitional anatomy. ALIGNMENT: Normal. VERTEBRAE: Maintained height. No fracture or worrisome bone lesion. DISCS: Preserved height. No significant osteophytes or end plate irregularity. POSTERIOR ELEMENTS: Pedicles and facets are intact. No pars defect or posterior arch defects. HARDWARE: None in the spine. PARASPINAL SOFT TISSUES: Normal. PELVIS: Intact as visualized. No fractures or worrisome bone lesions. SI joints intact. OTHER: No other significant finding. IMPRESSION: NORMAL 2 VIEW LUMBAR SPINE. TECHNICAL DOCUMENTATION: JOB ID: [id number] [employer]- All Rights Reserved Reading location - IP/workstation name: [email or web address]
== END ==
LOC: CCC 12:54
DX: M41.84 Other forms of scoliosis, thoracic region (principal); M54.9 Dorsalgia, unspecified
CPT/HCPCS: 72070; 72100; 72220

== ENCOUNTER 2018-06-01 17:36 | Inpatient (IN) | payer SELFPAY ==
--- NOTE | 2018-06-01 18:02 | ER Document Report ---
ED Neck/Back Problem - General Chief Complaint: Back Pain Stated Complaint: BACK PAIN Time Seen by Provider: 06/01/18 18:01 TRAVEL OUTSIDE OF THE [place] IN LAST 30 DAYS: No - Related Data Allergies/Adverse Reactions: pseudoephedrine HCl [From Actifed] Allergy (Verified 03/06/18 17:35) ramipril [From Altace] Allergy (Verified 03/06/18 17:35) triprolidine HCl [From Actifed] Allergy (Verified 03/06/18 17:35) lisinopril [Lisinopril] Adverse Reaction (Intermediate, Verified 03/06/18 17:35) Past Medical History - Social History Family History: CAD, DM, Hypertension, Malignancy - Colon cancer and leukemia, Other - COPD - Past Medical History Cardiac Medical History: Reports: Hx Hypercholesterolemia, Hx Hypertension Denies: Hx Coronary Artery Disease, Hx Heart Attack Pulmonary Medical History: Denies: Hx Asthma, Hx Bronchitis, Hx COPD, Hx Pneumonia Neurological Medical History: Denies: Hx Cerebrovascular Accident, Hx Seizures Endocrine Medical History: Reports: Hx Diabetes Mellitus Type 2 Renal/ Medical History: Denies: Hx Peritoneal Dialysis GI Medical History: Reports: Hx Gastritis, Hx Gastroesophageal Reflux Disease, Hx Irritable Bowel Musculoskeletal Medical History: Reports Hx Arthritis, Reports Hx Fibromyalgia Psychiatric Medical History: Reports: Hx Anxiety, Hx Depression Past Surgical History: Reports: Hx Appendectomy, Hx Section, Hx Cholecystectomy, Hx Orthopedic Surgery - L foot, Hx Tonsillectomy - addenoids, Hx Tubal Ligation. Denies: Hx Hysterectomy, Hx Pacemaker - Immunizations Hx Diphtheria, Pertussis, Tetanus Vaccination: Yes Hx Pneumococcal Vaccination: 06/03/00 Physical Exam - Vital signs Vitals: Temp Pulse Resp BP Pulse Ox 97.7 F 91 16 156/101 H 100 06/01/18 17:47 06/01/18 17:47 06/01/18 17:47 06/01/18 17:47 06/01/18 17:47 Course - Vital Signs Vital signs: Temp Pulse Resp BP Pulse Ox 97.7 F 91 16 156/101 H 100 06/01/18 17:47 06/01/18 17:47 06/01/18 17:47 06/01/18 17:47 06/01/18 17:47 Discharge - Discharge Referrals: [facility] [Primary Care Provider] - Follow up as needed
--- NOTE | 2018-06-01 18:18 | ER Document Report ---
ED GI/ - General Chief Complaint: Back Pain Stated Complaint: BACK PAIN Time Seen by Provider: 06/01/18 18:01 Mode of Arrival: Ambulatory Information source: Patient Notes: 58-year-old female presents to ED for right flank pain for 3-4 days. States she has had some nausea but no vomiting. Patient has a history of chronic pain fibromyalgia and arthritis but this is flank pain not back pain where her normal pain is. She states she has never had pain in this area before. She does have diabetes and high blood pressure and has been told she had renal insufficiency. Patient also has a history of high blood pressure high cholesterol and diabetes. TRAVEL OUTSIDE OF THE [place] IN LAST 30 DAYS: No - HPI Patient complains to provider of: Flank pain, Other - Nausea no vomiting Onset: Other - 3-4 days Timing/Duration: Intermittent Quality of pain: Sharp, Throbbing Severity at maximum: Moderate Severity in ED: Moderate Pain Level: 4 Location: Right flank Vaginal bleeding (Compared to normal period): None Associated symptoms: Other - Right flank pain with nausea Exacerbated by: Movement, Walking Relieved by: Denies Similar symptoms previously: No Recently seen / treated by doctor: No - Related Data Allergies/Adverse Reactions: pseudoephedrine HCl [From Actifed] Allergy (Verified 03/06/18 17:35) ramipril [From Altace] Allergy (Verified 03/06/18 17:35) triprolidine HCl [From Actifed] Allergy (Verified 03/06/18 17:35) lisinopril [Lisinopril] Adverse Reaction (Intermediate, Verified 03/06/18 17:35) Past Medical History - General Information source: Patient - Social History Smoking Status: Former Smoker Cigarette use (# per day): No Chew tobacco use (# tins/day): No Smoking Education Provided: No Frequency of alcohol use: None Drug Abuse: None Lives with: Family Family History: CAD, DM, Hypertension, Malignancy - Colon cancer and leukemia, Other - COPD Patient has suicidal ideation: No Patient has homicidal ideation: No - Past Medical History Cardiac Medical History: Reports: Hx Hypercholesterolemia, Hx Hypertension Pulmonary Medical History: Reports: Hx Bronchitis, Hx Pneumonia EENT Medical History: Reports: None Neurological Medical History: Reports: None Endocrine Medical History: Reports: Hx Diabetes Mellitus Type 2 Renal/ Medical History: Reports: Hx Renal Insufficiency Malignancy Medical History: Reports: None GI Medical History: Reports: Hx Gastritis, Hx Gastroesophageal Reflux Disease, Hx Irritable Bowel Musculoskeletal Medical History: Reports Hx Arthritis, Reports Hx Fibromyalgia, Reports Hx Musculoskeletal Deformity Skin Medical History: Reports None Psychiatric Medical History: Reports: Hx Anxiety, Hx Depression Traumatic Medical History: Reports: None Infectious Medical History: Reports: None Past Surgical History: Reports: Hx Appendectomy, Hx Section, Hx Cholecystectomy, Hx Orthopedic Surgery - L foot, Hx Tonsillectomy - addenoids, Hx Tubal Ligation - Immunizations Immunizations up to date: Yes Hx Diphtheria, Pertussis, Tetanus Vaccination: Yes Hx Pneumococcal Vaccination: 06/03/00 Review of Systems - Review of Systems Gastrointestinal: Nausea Genitourinary: Flank pain Female Genitourinary: No symptoms reported Musculoskeletal: Back pain Skin: No symptoms reported Hematologic/Lymphatic: No symptoms reported Neurological/Psychological: No symptoms reported -: Yes All other systems reviewed and negative Physical Exam - Vital signs Vitals: Temp Pulse Resp BP Pulse Ox 97.7 F 91 16 156/101 H 100 06/01/18 17:47 06/01/18 17:47 06/01/18 17:47 06/01/18 17:47 06/01/18 17:47 Interpretation: Normal - General General appearance: Appears well, Alert - HEENT Head: Normocephalic, Atraumatic Eyes: Normal Pupils: PERRL - Respiratory Respiratory status: No respiratory distress Chest status: Nontender Breath sounds: Normal Chest palpation: Normal - Cardiovascular Rhythm: Regular Heart sounds: Normal auscultation Murmur: No - Abdominal Inspection: Normal Distension: No distension Bowel sounds: Normal Tenderness: Nontender Organomegaly: No organomegaly - Back Back: Normal, CVA tenderness - Right - Extremities General upper extremity: Normal inspection, Nontender, Normal color, Normal ROM, Normal temperature General lower extremity: Normal inspection, Nontender, Normal color, Normal ROM, Normal temperature, Normal weight bearing. No: Sandee's sign - Neurological Neuro grossly intact: Yes Cognition: Normal Orientation: AAOx4 [place] Coma Scale Eye Opening: Spontaneous Eddie Coma Scale Verbal: Oriented Eddie Coma Scale Motor: Obeys Commands [place] Coma Scale Total: 15 Speech: Normal Motor strength normal: LUE, RUE, LLE, RLE Sensory: Normal - Psychological Associated symptoms: Normal affect, Normal mood - Skin Skin Temperature: Warm Skin Moisture: Dry Skin Color: Normal Course - Re-evaluation Re-evalutation: 06/01/18 20:[address] and lab results with Dr. Mejia. He agreed patient needed to be admitted for hypo-natremia, hypo-chloremia, and hyperglycemia as well as her flank pain. The CT did show a left nonobstructing stone but her pain is on the right flank. Consulted Dr. Ng who accepted the admission for a medical bed. He stated he would put in the insulin orders himself. Patient was started on normal saline thousand cc bolus after receiving the Accu-Chek of 872. Patient is a type II diabetic, with history of high blood pressure high cholesterol renal insufficiency states she has not checked her Accu-Chek in about a week. - Vital Signs Vital signs: Temp Pulse Resp BP Pulse Ox 97.7 F 91 16 142/96 H 100 06/01/18 17:47 06/01/18 17:47 06/01/18 17:47 06/01/18 18:10 06/01/18 17:47 - Laboratory Result Diagrams: 06/01/18 18:18 06/01/18 18:18 Laboratory results interpreted by me: 06/01/18 06/01/18 18:11 18:18 Sodium 127.7 L Chloride 84 L BUN 25 H Est GFR ( Amer) 53 L Est GFR (Non-Af Amer) 44 L Glucose 872 H* Alkaline Phosphatase 188 H Urine Glucose (UA) >=500 H Ur Leukocyte Esterase SMALL H - Diagnostic Test Radiology reviewed: Image reviewed, Reports reviewed Discharge - Discharge Clinical Impression: Hyponatremia, Hypochloremia, Flank pain Hyperglycemia due to type 2 diabetes mellitus Qualifiers: Diabetes mellitus senior living insulin use: with intermediate accountant use Qualified Code(s): E11.65 - Type 2 diabetes mellitus with hyperglycemia Disposition: ADMITTED INPATIENT Admitting Provider: Jaylon Ng Unit Admitted: Medical Floor
[2018-06-01] MEDS ORDERED: OXYCODONE-ACETAMINOPHEN 5-325 MG TABLET PO ONE (18:22)
[2018-06-01] MEDS ORDERED: ONDANSETRON 4 MG TAB.RAPDIS PO ONE (18:22)
[2018-06-01 18:26] LABS: APPEARANCE,URINE CLEAR; BILIRUBIN,URINE NEGATIVE (NEGATIVE); COLOR,URINE STRAW; GLUCOSE, URINE >=500 mg/dL (NEGATIVE); KETONES,URINE NEGATIVE (NEGATIVE); LEUKOCYTE ESTERASE,URINE SMALL (NEGATIVE); NITRITE,URINE NEGATIVE (NEGATIVE); PROTEIN,URINE NEGATIVE (NEGATIVE); URINE SPECIFIC GRAVITY 1.025; UROBILINOGEN,URINE NEGATIVE mg/dL (<2.0)
[2018-06-01 18:38] LABS: ABSOLUTE EOSINOPHILS # (AUTO) 0.1 10^3/uL (0.0-0.6); ABSOLUTE LYMPHOCYTES (AUTO) 1.6 10^3/uL (0.5-4.7); ABSOLUTE MONOCYTES (AUTO) 0.3 10^3/uL (0.1-1.4); ABSOLUTE NEUT (AUTO) 2.8 10^3/uL (1.7-8.2); BASOPHILS % (AUTO) 0.6 % (0-2); EOSINOPHILS % (AUTO) 2.7 % (0-6); HEMATOCRIT 37.5 % (36.0-47.0); HEMOGLOBIN 12.5 g/dL (12.0-15.5); LYMPHOCYTES % (AUTO) 32.4 % (13-45); MEAN CORPUSCULAR HEMOGLOBIN 30.8 pg (27.0-33.4); MEAN CORPUSCULAR HGB CONC 33.4 g/dL (32.0-36.0); MEAN CORPUSCULAR VOLUME 92 fl (80-97); MONOCYTES % (AUTO) 6.6 % (3-13); PLATELET COUNT 186 10^3/uL (150-450); RED BLOOD COUNT 4.07 10^6/uL (3.72-5.28); RED CELL DISTRIBUTION WIDTH 13.2 % (11.5-14.0); SEGMENTED NEUTROPHILS % (AUTO) 57.7 % (42-78); TOTAL CELLS COUNTED % (AUTO) 100 %; WHITE BLOOD COUNT 4.9 10^3/uL (4.0-10.5)
[2018-06-01 18:47] LABS: ALANINE AMINOTRANSFERASE 17 U/L (9-52); ALBUMIN 4.1 g/dL (3.5-5.0); ALKALINE PHOSPHATASE 188 U/L (38-126); ANION GAP 14 (5-19); ASPARTATE AMINO TRANSFERASE 14 U/L (14-36); BILIRUBIN,DIRECT 0.3 mg/dL (0.0-0.4); BLOOD UREA NITROGEN 25 mg/dL (7-20); CALCIUM 9.2 mg/dL (8.4-10.2); CARBON DIOXIDE 30 mmol/L (22-30); CHLORIDE 84 mmol/L (98-107); POTASSIUM 4.8 mmol/L (3.6-5.0); SODIUM 127.7 mmol/L (137-145); TOTAL PROTEIN 6.4 g/dL (6.3-8.2)
[2018-06-01 18:56] LABS: GLUCOSE 872 mg/dL (75-110)
--- NOTE | 2018-06-01 19:04 | RADIOLOGY REPORT (SQ) ---
EXAM DESCRIPTION: CT LTD RENAL STONE PROTOCOL ON COMPLETED DATE/TIME: 06/01/2018 6:32 pm REASON FOR STUDY: right flank pain COMPARISON: None. TECHNIQUE: CT scan of the abdomen and pelvis performed without intravenous or oral contrast. Images reviewed with lung, soft tissue, and bone windows. Reconstructed coronal and sagittal MPR images revi ewed. All images stored on PACS. All CT scanners at this facility use dose modulation, iterative reconstruction, and/or weight based d osing when appropriate to reduce radiation dose to as low as reasonably achievable (ALARA). [facility]: Dose Right [facility]: CareDose [facility]: Dose Right [facility]: Teradose 4D [facility]: [employer] RADIATION DOSE: CT Rad equipment meets quality standard of care and radiation dose reduction techniq ues were employed. CTDIvol: 5.0 mGy. DLP: 250 mGy-cm.mGy. LIMITATIONS: None. FINDINGS: LOWER CHEST: No significant findings. No nodules or infiltrates. NON-CONTRASTED LIVER, SPLEEN, ADRENALS: Evaluation limited by lack of IV contrast. No identified sign ificant masses. PANCREAS: No masses. No peripancreatic inflammatory changes. GALLBLADDER: Surgically absent. RIGHT KIDNEY AND URETER: No suspicious masses. Assessment limited by lack of IV contrast. No signif icant calcifications. No hydronephrosis or hydroureter. LEFT KIDNEY AND URETER: No suspicious masses. Assessment limited by lack of IV contrast. Punctate s tone left kidney. No hydronephrosis or hydroureter. AORTA AND RETROPERITONEUM: No aneurysm. No retroperitoneal masses or adenopathy. BOWEL AND PERITONEAL CAVITY: No obvious masses or inflammatory changes. No free fluid. APPENDIX: Surgically absent. PELVIS, BLADDER, AND ABDOMINAL WALL:No abnormal masses. No free fluid. Bladder normal. BONES: Nothing acute. OTHER: No other significant finding. IMPRESSION: Small nonobstructing stone left kidney. COMMENT: Quality ID # [id number]: Final reports with documentation of one or more dose reduction techniques (e.g., Automated exposure control, adjustment of the mA and/or kV according to patient size, use of iterative reconstruction technique) TECHNICAL DOCUMENTATION: JOB ID: [id number] [employer]- All Rights Reserved Reading location - IP/workstation name: [email or web address]
[2018-06-01] MEDS ORDERED: NORMAL SALINE 1000 ML 1,000 ML IV ONE (19:14)
[2018-06-01 19:22] LABS: VENOUS BLOOD BASE EXCESS -0.4 mmol/L; VENOUS BLOOD HCO3 25.3 mmol/L (20-32); VENOUS BLOOD PH 7.37 (7.30-7.42)
[2018-06-01] MEDS ORDERED: MAG HYDROX/AL HYDROX/SIMETH SUSP 30 ML UDCUP PO PRN (19:43)
[2018-06-01] MEDS ORDERED: MAGNESIUM HYDROXIDE SUSP 30 ML UDCUP PO PRN (19:43)
[2018-06-01] MEDS ORDERED: ACETAMINOPHEN 325 MG TABLET PO PRN (19:49)
[2018-06-01] MEDS ORDERED: ACETAMINOPHEN 650 MG SUPP.RECT PR PRN (19:49)
[2018-06-01] MEDS ORDERED: MORPHINE SULFATE 10 MG/ML INJ IV PRN ×2 (19:51)
[2018-06-01] MEDS ORDERED: GLUCAGON,HUMAN RECOMB 1 MG INJ IM PRN (19:53)
[2018-06-01] MEDS ORDERED: DEXTROSE 40% GEL 15 GM TUBE PO PRN ×2 (19:53)
[2018-06-01] MEDS ORDERED: DEXTROSE 50%-WATER 25 GM/50 ML DISP.SYRIN IV PRN ×2 (19:53)
[2018-06-01] MEDS ORDERED: INSULIN REG, HUMAN 100 UNIT/ML 3 ML VIAL (PYX) IV ONE (19:57)
[2018-06-01] MEDS ORDERED: CLONAZEPAM 1 MG TABLET PO PRN (20:06)
[2018-06-01] MEDS ORDERED: HYDRALAZINE HCL INJ/PF 20 MG/1 ML SDV IV PRN (20:29)
[2018-06-01 20:40] LABS: ANION GAP 8 (5-19); BLOOD UREA NITROGEN 25 mg/dL (7-20); CALCIUM 8.3 mg/dL (8.4-10.2); CARBON DIOXIDE 30 mmol/L (22-30); CHLORIDE 92 mmol/L (98-107); SODIUM 130.3 mmol/L (137-145)
[2018-06-01 20:58] LABS: GLUCOSE 706 mg/dL (75-110)
[2018-06-01] MEDS ORDERED: INSULIN GLARGINE,HUM.REC.ANLOG 300 UNIT/3 ML INSULN.PEN SUBCUT ONE (23:09)
[2018-06-01] MEDS: POTASSI CL 20 MEQ/NS 1L 1,000 ML IV PRN (23:09)
[2018-06-01] MEDS: HEPARIN SOD (PORCINE) 5,000 UNIT/ML 1 ML SYRINGE SUBCUT SCH (23:10)
[2018-06-01] MEDS: METOCLOPRAMIDE HCL INJ/PF 10 MG/2 ML SDV IV SCH (23:11)
[2018-06-01] MEDS: INSULIN GLARGINE,HUM.REC.ANLOG 300 UNIT/3 ML INSULN.PEN SUBCUT SCH (23:12)
[2018-06-01] MEDS: MORPHINE SULFATE 10 MG/ML INJ IV PRN (23:32)
[2018-06-01] MEDS ORDERED: FLUCONAZOLE 100 MG TABLET PO ONE (23:40)
--- NOTE | 2018-06-01 23:41 | PDOC H&P ---
History of Present Illness Admission Date/PCP: 06/01/18 19:56 [facility] Patient complains of: Right flank pain History of Present Illness: ZEYAD SOLIMAN is a 58 year old female who presents the emergency room with a 4- day history of right flank pain accompanied by nausea with no vomiting. Patient describes her right flank pain as an waxing and waning sharp aching pain of mild to moderate intensity without radiation. The pain is worsened by activity and movements especially twisting and turning and is relieved by resting with firm, continuous, flat pressure applied directly to the right flank area. She denies similar prior episodes as this pain is substantially different from that which she normally experiences due to her chronic fibromyalgia back pain. The pain has not been responsive to the use of muscle relaxant such as Flexeril or analgesics such as Tylenol and ibuprofen. The pain has responded to opiate analgesics. In the emergency room she was found to have a nonobstructive left nephrolith and no other pathologic findings on her abdominal and pelvic (kidney stone protocol) CT scan. She was found to have a blood sugar of 872 with a mild hyponatremia and normal serum potassium. She was also noted to be moderately hypertensive. With these findings patient was admitted to the medical floor for further evaluation and treatment. Past Medical History Cardiac Medical History: Reports: Hyperlipidema, Hypertension Denies: Coronary Artery Disease, Myocardial Infarction Pulmonary Medical History: Reports: Bronchitis, Pneumonia Denies: Asthma, Chronic Obstructive Pulmonary Disease (COPD) EENT Medical History: Reports: None Neurological Medical History: Denies: Migraine, Seizures Endocrine Medical History: Reports: Diabetes Mellitus Type 2 Denies: Hyperthyroidism, Hypothyroidism, Obesity Renal/ Medical History: Reports: Chronic Kidney Disease Denies: Nephrolithiasis Malignancy Medical History: Reports: None GI Medical History: Reports: Gastroesophageal Reflux Disease Denies: Cirrhosis, Hepatitis Musculoskeltal Medical History: Reports: Arthritis, Fibromyalgia Skin Medical History: Denies: Eczema, Psoriasis Psychiatric Medical History: Reports: Depression, General Anxiety Disorder, Tobacco Dependency Denies: Alcohol Dependency, Substance Abuse Traumatic Medical History: Reports: None Hematology: Denies: Anemia, Bleeding Tendencies Infectious Medical History: Reports: None Past Surgical History Past Surgical History: Reports: Appendectomy, Section, Cholecystectomy, Orthopedic Surgery - L foot, Tonsillectomy - addenoids, Tubal Ligation Denies: Hysterectomy, Pacemaker Social History Information Source: Patient Lives with: Family Smoking Status: Former Smoker Frequency of Alcohol Use: None Hx Recreational Drug Use: No Drugs: None Hx Prescription Drug Abuse: No - Advance Directive Resuscitation Status: Full Code Surrogate healthcare decision maker:: Spencer Soliman Family History Family History: CAD, DM, Hypertension, Malignancy - Colon cancer and leukemia, Other - COPD Parental Family History Reviewed: Yes Children Family History Reviewed: No Sibling(s) Family History Reviewed.: Yes Medication/Allergy Home Medications: Chlordiazepoxide/Clidinium Br [Chlordiazepoxide-Clidinium Cap] 1 each PO DAILY 02/27/17 Clonazepam 0.5 mg PO BID PRN 02/27/17 Cyclobenzaprine HCl 10 mg PO TID PRN 02/27/17 Glyburide 5 mg PO QAM 02/27/17 Oxycodone HCl/Acetaminophen [Percocet 10-325 Mg Tablet] 1 each PO BID PRN 02/27/17 Triamterene/Hydrochlorothiazid [Triamterene-Hctz 37.5-25 mg Tb] 1 each PO DAILY 02/27/17 Ondansetron [Zofran Odt] 4 mg PO Q6 PRN #30 tab.rapdis 01/14/18 Insulin Glargine,Hum.rec.anlog [Lantus Insulin Inj 300 Unit/3 ml Pen] 40 unit SUBCUT QHS #2 each 03/06/18 Metformin HCl 1,000 mg PO BID #60 tablet 03/06/18 Allergies/Adverse Reactions: pseudoephedrine HCl [From Actifed] Allergy (Verified 03/06/18 17:35) ramipril [From Altace] Allergy (Verified 03/06/18 17:35) triprolidine HCl [From Actifed] Allergy (Verified 03/06/18 17:35) lisinopril [Lisinopril] Adverse Reaction (Intermediate, Verified 03/06/18 17:35) Review of Systems Constitutional: ABSENT: chills, fever(s) Eyes: ABSENT: visual disturbances, other - Ocular pain Ears: ABSENT: hearing changes, other - Ear pain Nose, Mouth, and Throat: ABSENT: mouth pain, sore throat Cardiovascular: ABSENT: chest pain, dyspnea on exertion, edema, orthropnea, palpitations Respiratory: ABSENT: cough, dyspnea Gastrointestinal: PRESENT: abdominal pain - Right flank, nausea. ABSENT: constipation, diarrhea, vomiting Genitourinary: PRESENT: other - Vaginal itching for the last several days with a thick whitish vaginal discharge (similar to previous yeast infections). ABSENT: dysuria, hematuria Musculoskeletal: PRESENT: back pain - Chronic. ABSENT: deformity, joint swelling Integumentary: ABSENT: pruritus, rash Neurological: ABSENT: confusion, convulsions, memory loss, tremor(s) Psychiatric: ABSENT: anxiety, depression Endocrine: ABSENT: cold intolerance, heat intolerance Hematologic/Lymphatic: ABSENT: easy bleeding, easy bruising Physical Exam Vital Signs: Temp Pulse Resp BP Pulse Ox 97.7 F 91 16 142/96 H 100 06/01/18 17:47 06/01/18 17:47 06/01/18 17:47 06/01/18 18:10 06/01/18 17:47 Intake & Output 05/30/18 05/31/18 06/01/18 23:59 23:59 23:59 Weight 58.1 kg General appearance: PRESENT: cooperative, mild distress - Due to right flank pain Head exam: PRESENT: atraumatic, normocephalic Eye exam: PRESENT: conjunctiva pink, EOMI. ABSENT: scleral icterus Ear exam: PRESENT: normal external ear exam. ABSENT: bleeding, drainage Mouth exam: PRESENT: dry mucosa, neck supple Neck exam: ABSENT: JVD, thyromegaly, tracheal deviation Respiratory exam: PRESENT: clear to auscultation iglesia, symmetrical, unlabored Cardiovascular exam: PRESENT: RRR. ABSENT: clicks, diastolic murmur, gallop, rubs, systolic murmur Pulses: PRESENT: normal radial pulses, normal dorsalis pedis pul Vascular exam: PRESENT: normal capillary refill. ABSENT: pallor GI/Abdominal exam: PRESENT: normal bowel sounds, soft, tenderness - Right flank Rectal exam: PRESENT: deferred Extremities exam: ABSENT: joint swelling, pedal edema Musculoskeletal exam: PRESENT: full ROM, normal inspection Neurological exam: PRESENT: alert, oriented to person, oriented to place, oriented to time, oriented to situation, CN II-XII grossly intact. ABSENT: motor sensory deficit Psychiatric exam: PRESENT: appropriate affect, normal mood Skin exam: PRESENT: dry, intact, warm. ABSENT: jaundice, rash, urticaria Results Laboratory Results: 06/01/18 18:18 06/01/18 18:18 12/06/01/18 06/01/18 17:12 18:11 18:18 WBC 4.9 RBC 4.07 Hgb 12.5 Hct 37.5 MCV 92 MCH 30.8 MCHC 33.4 RDW 13.2 Plt Count 186 Seg Neutrophils % 57.7 Lymphocytes % 32.4 Monocytes % 6.6 Eosinophils % 2.7 Basophils % 0.6 Absolute Neutrophils 2.8 Absolute Lymphocytes 1.6 Absolute Monocytes 0.3 Absolute Eosinophils 0.1 Absolute Basophils 0.0 VBG pH 7.37 VBG pCO2 45.0 VBG HCO3 25.3 VBG Base Excess -0.4 Sodium Potassium Chloride Carbon Dioxide Anion Gap BUN Creatinine Est GFR ( Amer) Est GFR (Non-Af Amer) Glucose Calcium Total Bilirubin AST ALT Alkaline Phosphatase Total Protein Albumin Urine Color STRAW Urine Appearance CLEAR Urine pH 5.0 Ur Specific [place] 1.025 Urine Protein NEGATIVE Urine Glucose (UA) >=500 H Urine Ketones NEGATIVE Urine Blood NEGATIVE Urine Nitrite NEGATIVE Ur Leukocyte Esterase SMALL H Urine WBC (Auto) 2 Urine RBC (Auto) 1 06/01/18 18:18 WBC RBC Hgb Hct MCV MCH MCHC RDW Plt Count Seg Neutrophils % Lymphocytes % Monocytes % Eosinophils % Basophils % Absolute Neutrophils Absolute Lymphocytes Absolute Monocytes Absolute Eosinophils Absolute Basophils VBG pH VBG pCO2 VBG HCO3 VBG Base Excess Sodium 127.7 L Potassium 4.8 Chloride 84 L Carbon Dioxide 30 Anion Gap 14 BUN 25 H Creatinine 1.25 Est GFR ( Amer) 53 L Est GFR (Non-Af Amer) 44 L Glucose 872 H* Calcium 9.2 Total Bilirubin 1.0 AST 14 ALT 17 Alkaline Phosphatase 188 H Total Protein 6.4 Albumin 4.1 Urine Color Urine Appearance Urine pH Ur Specific [place] Urine Protein Urine Glucose (UA) Urine Ketones Urine Blood Urine Nitrite Ur Leukocyte Esterase Urine WBC (Auto) Urine RBC (Auto) Impressions: Limited or Localized CT 06/01/18 18:09 IMPRESSION: Small nonobstructing stone left kidney. Assessment & Plan - Diagnosis (1) DM II (diabetes mellitus, type II), controlled Qualifiers: Diabetes mellitus skilled nursing insulin use: unspecified skilled nursing insulin use status Diabetes mellitus complication status: with hyperglycemia Qualified Code(s): E11.65 - Type 2 diabetes mellitus with hyperglycemia Is this a current diagnosis for this admission?: Yes Plan: Patient receive IV insulin in the form of Humulin R 25 units x1 followed by Accu-Cheks and a subcutaneous Humulin R sliding scale every 4 hours. She will be given her usual dose of Lantus insulin subcutaneously at bedtime on a daily basis. Her oral hypoglycemic agents could be restarted in the morning if she has responded well to therapy overnight. Metabolic profiles will be obtained every 4 hours to manage electrolyte replacement. (2) HTN (hypertension) Qualifiers: Hypertension type: essential hypertension Qualified Code(s): I10 - Essential (primary) hypertension Is this a current diagnosis for this admission?: Yes Plan: Patient has been hypertensive in the emergency room and this will be treated wit h IV hydralazine 20 mg every 4 hours as needed. (3) Hyponatremia Is this a current diagnosis for this admission?: Yes Plan: The hyponatremia will be treated with IV fluids utilizing normal saline with 20 mEq of potassium IV at 250 mL/h to aid in volume replacement as well as replacing electrolytes. Every 4 hours metabolic profiles will be obtained. (4) Flank pain Is this a current diagnosis for this admission?: Yes Plan: Patient's flank pain seems to be most likely musculoskeletal in origin and will be treated with morphine sulfate administered intravenously on a sliding scale based upon pain level. (5) CKD (chronic kidney disease) stage 3, GFR 30-59 ml/min Is this a current diagnosis for this admission?: Yes Plan: Patient gives a history of chronic kidney disease however there is at least some suspicion that there may be an acute component to her renal insufficiency at this time. Patient will receive IV fluids for volume replacement and electrolyte correction. A metabolic profile will be obtained every 4 hours to evaluate therapy. (6) Vaginal discharge Is this a current diagnosis for this admission?: Yes Plan: Given the significantly elevated serum glucose the likelihood of a candidal yeast infection is extremely high. Patient will therefore be treated with Diflucan 150 mg orally x1 dose. - Time Time Spent: 30 to 50 Minutes Critical Time spent with patient: Less than 15 minutes Medications reviewed and adjusted accordingly: Yes Anticipated discharge: Home - Inpatient Certification Based on my medical assessment, after consideration of the patient's co morbidities, presenting symptoms, or acuity I expect that the services needed warrant INPATIENT care.: Yes I certify that my determination is in accordance with my understanding of Medicare's requirements for reasonable and necessary INPATIENT services [42 CFR 412.3e].: Yes Medical Necessity: Significant Comorbidiites Make Outpatient Treatment Too Risky, Need Close Monitoring Due to Risk of Patient Decompensation, Need For IV Fluids, Need for Pain Control, Risk of Complication if Not Cared For in Hospital
[2018-06-02 01:00] LABS: ANION GAP 8 (5-19); BLOOD UREA NITROGEN 24 mg/dL (7-20); CALCIUM 9.1 mg/dL (8.4-10.2); CARBON DIOXIDE 30 mmol/L (22-30); CHLORIDE 99 mmol/L (98-107); GLUCOSE 80 mg/dL (75-110); POTASSIUM 3.2 mmol/L (3.6-5.0); SODIUM 136.7 mmol/L (137-145)
[2018-06-02] MEDS ORDERED: FLUCONAZOLE 100 MG TABLET ONE (01:05)
[2018-06-02] MEDS: POTASSI CL 20 MEQ/NS 1L 1,000 ML IV PRN ×3 (03:33→13:56)
[2018-06-02 04:50] LABS: HEMATOCRIT 34.3 % (36.0-47.0); HEMOGLOBIN 12.1 g/dL (12.0-15.5); MEAN CORPUSCULAR HEMOGLOBIN 30.8 pg (27.0-33.4); MEAN CORPUSCULAR HGB CONC 35.3 g/dL (32.0-36.0); PLATELET COUNT 153 10^3/uL (150-450); RED BLOOD COUNT 3.93 10^6/uL (3.72-5.28); RED CELL DISTRIBUTION WIDTH 13.3 % (11.5-14.0); WHITE BLOOD COUNT 6.1 10^3/uL (4.0-10.5)
[2018-06-02 05:00] LABS: MEAN CORPUSCULAR VOLUME 87 fl (80-97)
[2018-06-02 05:18] LABS: ANION GAP 6 (5-19); BLOOD UREA NITROGEN 20 mg/dL (7-20); CALCIUM 8.7 mg/dL (8.4-10.2); CARBON DIOXIDE 29 mmol/L (22-30); CHLORIDE 103 mmol/L (98-107); CHOLESTEROL 123.41 mg/dL (0-200); GLUCOSE 44 mg/dL (75-110); POTASSIUM 3.4 mmol/L (3.6-5.0); SODIUM 138.1 mmol/L (137-145); TRIGLYCERIDES 57 mg/dL (<150)
[2018-06-02 05:28] LABS: DIRECT LDL 60 mg/dL (<100)
[2018-06-02] MEDS: MORPHINE SULFATE 10 MG/ML INJ IV PRN ×2 (05:34→22:30)
[2018-06-02] MEDS: HEPARIN SOD (PORCINE) 5,000 UNIT/ML 1 ML SYRINGE SUBCUT SCH ×3 (05:35→22:29)
[2018-06-02 06:22] LABS: FREE T3 4.23 pg/mL (2.77-5.27); FREE T4 (FREE THYROXINE) 1.76 ng/dL (0.78-2.19)
[2018-06-02 06:36] LABS: THYROID STIMULATING HORMONE 8.1 uIU/mL (0.47-4.68)
[2018-06-02 09:15] LABS: ANION GAP 6 (5-19); BLOOD UREA NITROGEN 17 mg/dL (7-20); CALCIUM 8.6 mg/dL (8.4-10.2); CARBON DIOXIDE 29 mmol/L (22-30); CHLORIDE 103 mmol/L (98-107); GLUCOSE 43 mg/dL (75-110); POTASSIUM 3.6 mmol/L (3.6-5.0); SODIUM 137.5 mmol/L (137-145)
[2018-06-02] MEDS: METOCLOPRAMIDE HCL INJ/PF 10 MG/2 ML SDV IV SCH ×4 (09:28→22:30)
[2018-06-02] MEDS: DOCUSATE SODIUM 100 MG CAPSULE PO SCH ×2 (09:29→17:12)
[2018-06-02] MEDS: INSULIN REG, HUMAN 100 UNIT/ML 3 ML VIAL (PYX) SUBCUT PRN (12:04)
--- NOTE | 2018-06-02 18:03 | PDOC PROGRESS REPORT ---
Subjective Progress Note for:: 06/02/18 Subjective:: Resting comfortably in bed. Still feels achy. Reason For Visit: UNCONTROLLED TYPE 2 DIABETES MELLITUS Physical Exam Vital Signs: Temp Pulse Resp BP Pulse Ox 97.8 F 77 16 140/102 H 100 06/02/18 15:39 06/02/18 15:39 06/02/18 15:39 06/02/18 15:39 06/02/18 15:39 Intake & Output 06/01/18 06/02/18 06/03/18 06:59 06:59 06:59 Intake Total 2236 1999 Balance 2236 1999 Weight 61.6 kg General appearance: PRESENT: no acute distress, cooperative, well-developed Head exam: PRESENT: normocephalic Eye exam: PRESENT: conjunctiva pink Ear exam: PRESENT: normal external ear exam Respiratory exam: PRESENT: clear to auscultation iglesia, symmetrical, unlabored. ABSENT: accessory muscle use, rales, rhonchi, wheezes Cardiovascular exam: PRESENT: RRR, +S1, +S2 GI/Abdominal exam: PRESENT: normal bowel sounds, soft. ABSENT: tenderness Extremities exam: ABSENT: pedal edema Musculoskeletal exam: PRESENT: other - Some tenderness over the right rib cage. Possible lipoma Neurological exam: PRESENT: alert, awake, oriented to person, oriented to place, oriented to time, oriented to situation, CN II-XII grossly intact Psychiatric exam: PRESENT: appropriate affect, normal mood. ABSENT: agitated, anxious Focused psych exam: ABSENT: restlessness Results Laboratory Results: 06/02/18 04:01 06/02/18 08:26 06/01/18 06/01/18 06/01/18 17:12 18:11 18:18 WBC 4.9 RBC 4.07 Hgb 12.5 Hct 37.5 MCV 92 MCH 30.8 MCHC 33.4 RDW 13.2 Plt Count 186 Seg Neutrophils % 57.7 Lymphocytes % 32.4 Monocytes % 6.6 Eosinophils % 2.7 Basophils % 0.6 Absolute Neutrophils 2.8 Absolute Lymphocytes 1.6 Absolute Monocytes 0.3 Absolute Eosinophils 0.1 Absolute Basophils 0.0 VBG pH 7.37 VBG pCO2 45.0 VBG HCO3 25.3 VBG Base Excess -0.4 Sodium Potassium Chloride Carbon Dioxide Anion Gap BUN Creatinine Est GFR ( Amer) Est GFR (Non-Af Amer) Glucose Calcium Magnesium Total Bilirubin AST ALT Alkaline Phosphatase Total Protein Albumin Triglycerides Cholesterol LDL Cholesterol Direct VLDL Cholesterol HDL Cholesterol TSH Free T4 Free T3 pg/mL Urine Color STRAW Urine Appearance CLEAR Urine pH 5.0 Ur Specific [place] 1.025 Urine Protein NEGATIVE Urine Glucose (UA) >=500 H Urine Ketones NEGATIVE Urine Blood NEGATIVE Urine Nitrite NEGATIVE Ur Leukocyte Esterase SMALL H Urine WBC (Auto) 2 Urine RBC (Auto) 1 06/01/18 06/01/18 06/02/18 18:18 20:15 00:25 WBC RBC Hgb Hct MCV MCH MCHC RDW Plt Count Seg Neutrophils % Lymphocytes % Monocytes % Eosinophils % Basophils % Absolute Neutrophils Absolute Lymphocytes Absolute Monocytes Absolute Eosinophils Absolute Basophils VBG pH VBG pCO2 VBG HCO3 VBG Base Excess Sodium 127.7 L 130.3 L 136.7 L Potassium 4.8 4.0 3.2 L Chloride 84 L 92 L 99 Carbon Dioxide 30 30 30 Anion Gap 14 8 8 BUN 25 H 25 H 24 H Creatinine 1.25 1.19 1.00 Est GFR ( Amer) 53 L 56 L > 60 Est GFR (Non-Af Amer) 44 L 47 L 57 L Glucose 872 H* 706 H* 80 Calcium 9.2 8.3 L 9.1 Magnesium Total Bilirubin 1.0 AST 14 ALT 17 Alkaline Phosphatase 188 H Total Protein 6.4 Albumin 4.1 Triglycerides Cholesterol LDL Cholesterol Direct VLDL Cholesterol HDL Cholesterol TSH Free T4 Free T3 pg/mL Urine Color Urine Appearance Urine pH Ur Specific [place] Urine Protein Urine Glucose (UA) Urine Ketones Urine Blood Urine Nitrite Ur Leukocyte Esterase Urine WBC (Auto) Urine RBC (Auto) 06/02/18 06/02/18 06/02/18 04:01 04:01 04:01 WBC 6.1 RBC 3.93 Hgb 12.1 Hct 34.3 L MCV 87 D MCH 30.8 MCHC 35.3 RDW 13.3 Plt Count 153 Seg Neutrophils % Lymphocytes % Monocytes % Eosinophils % Basophils % Absolute Neutrophils Absolute Lymphocytes Absolute Monocytes Absolute Eosinophils Absolute Basophils VBG pH VBG pCO2 VBG HCO3 VBG Base Excess Sodium 138.1 Potassium 3.4 L Chloride 103 Carbon Dioxide 29 Anion Gap 6 BUN 20 Creatinine 1.00 Est GFR ( Amer) > 60 Est GFR (Non-Af Amer) 57 L Glucose 44 L Calcium 8.7 Magnesium 1.7 Total Bilirubin AST ALT Alkaline Phosphatase Total Protein Albumin Triglycerides 57 Cholesterol 123.41 LDL Cholesterol Direct 60 VLDL Cholesterol 11.0 HDL Cholesterol 49 TSH 8.10 H Free T4 1.76 Free T3 pg/mL 4.23 Urine Color Urine Appearance Urine pH Ur Specific [place] Urine Protein Urine Glucose (UA) Urine Ketones Urine Blood Urine Nitrite Ur Leukocyte Esterase Urine WBC (Auto) Urine RBC (Auto) 06/02/18 08:26 WBC RBC Hgb Hct MCV MCH MCHC RDW Plt Count Seg Neutrophils % Lymphocytes % Monocytes % Eosinophils % Basophils % Absolute Neutrophils Absolute Lymphocytes Absolute Monocytes Absolute Eosinophils Absolute Basophils VBG pH VBG pCO2 VBG HCO3 VBG Base Excess Sodium 137.5 Potassium 3.6 Chloride 103 Carbon Dioxide 29 Anion Gap 6 BUN 17 Creatinine 0.75 Est GFR ( Amer) > 60 Est GFR (Non-Af Amer) > 60 Glucose 43 L Calcium 8.6 Magnesium Total Bilirubin AST ALT Alkaline Phosphatase Total Protein Albumin Triglycerides Cholesterol LDL Cholesterol Direct VLDL Cholesterol HDL Cholesterol TSH Free T4 Free T3 pg/mL Urine Color Urine Appearance Urine pH Ur Specific [place] Urine Protein Urine Glucose (UA) Urine Ketones Urine Blood Urine Nitrite Ur Leukocyte Esterase Urine WBC (Auto) Urine RBC (Auto) Impressions: Limited or Localized CT 06/01/18 18:09 IMPRESSION: Small nonobstructing stone left kidney. Assessment & Plan - Diagnosis (1) Hyperglycemia due to type 2 diabetes mellitus Qualifiers: Diabetes mellitus terminal carman insulin use: with terminal carman use Qualified Code(s): E11.65 - Type 2 diabetes mellitus with hyperglycemia; Z79.4 - detention (current) use of insulin Is this a current diagnosis for this admission?: Yes Plan: The patient states that she has undergone multiple medication changes. Her hemoglobin A1c is greater than 11 so compliance is likely an issue. Continue Lantus with sliding scale coverage and diabetic diet. (2) HTN (hypertension) Qualifiers: Hypertension type: essential hypertension Qualified Code(s): I10 - Essential (primary) hypertension Is this a current diagnosis for this admission?: Yes (3) Hypokalemia Is this a current diagnosis for this admission?: Yes Plan: Resolved (4) Hyponatremia Is this a current diagnosis for this admission?: Yes Plan: Resolved (5) Flank pain Is this a current diagnosis for this admission?: Yes Plan: Possible lipoma. Flank pain is on the right while her nonobstructive kidney stones on the left. This is likely musculoskeletal. - Time Time Spent with patient: 15-24 minutes Medications reviewed and adjusted accordingly: Yes Anticipated discharge: Home
[2018-06-02] MEDS: INSULIN GLARGINE,HUM.REC.ANLOG 300 UNIT/3 ML INSULN.PEN SUBCUT SCH (22:30)
[2018-06-03 05:52] LABS: HEMATOCRIT 35.1 % (36.0-47.0); HEMOGLOBIN 12.3 g/dL (12.0-15.5); MEAN CORPUSCULAR VOLUME 89 fl (80-97); PLATELET COUNT 149 10^3/uL (150-450); RED BLOOD COUNT 3.96 10^6/uL (3.72-5.28); RED CELL DISTRIBUTION WIDTH 13.4 % (11.5-14.0); WHITE BLOOD COUNT 4.4 10^3/uL (4.0-10.5)
[2018-06-03] MEDS: HEPARIN SOD (PORCINE) 5,000 UNIT/ML 1 ML SYRINGE SUBCUT SCH (06:17)
[2018-06-03 06:20] LABS: ANION GAP 6 (5-19); BLOOD UREA NITROGEN 13 mg/dL (7-20); CALCIUM 9.2 mg/dL (8.4-10.2); CARBON DIOXIDE 32 mmol/L (22-30); CHLORIDE 101 mmol/L (98-107); GLUCOSE 43 mg/dL (75-110); POTASSIUM 3.5 mmol/L (3.6-5.0); SODIUM 138.7 mmol/L (137-145)
[2018-06-03] MEDS: METOCLOPRAMIDE HCL INJ/PF 10 MG/2 ML SDV IV SCH ×2 (11:06→11:11)
[2018-06-03] MEDS: DOCUSATE SODIUM 100 MG CAPSULE PO SCH (11:11)
[2018-06-03] MEDS ORDERED: HYDROCHLOROTHIAZIDE 25 MG TABLET PO SCH (11:30)
[2018-06-03] MEDS ORDERED: METOPROLOL TARTRATE 50 MG TABLET PO SCH (11:30)
[2018-06-03] MEDS: INSULIN REG, HUMAN 100 UNIT/ML 3 ML VIAL (PYX) SUBCUT PRN (12:53)
[2018-06-03 13:31] VITALS: BP 143/75
--- NOTE | 2018-06-03 13:49 | PDOC DISCHARGE SUMMARY ---
General - Admit/Disc Date/PCP Admission Date/Primary Care Provider: 06/01/18 19:56 [facility] Discharge Date: 06/03/18 - Discharge Diagnosis (1) Hyperglycemia due to type 2 diabetes mellitus Is this a current diagnosis for this admission?: Yes Summary: The patient has had widely fluctuating glucose readings. She has never tried a split dose of Lantus. We are going to try 15 units of Lantus twice daily and resume her 500 mg of extended release metformin. She does need to follow-up at the [facility]. I did discuss potential options including using older in sulin such as 70/30 and sliding scale at home but this would require multiple dosing. She would like to avoid that if possible. (2) HTN (hypertension) Is this a current diagnosis for this admission?: Yes Summary: Some of the fluctuation in her blood pressure is likely due to various drops in her glucose. I am returning her to her home regimen. I will defer to the outpatient clinic for additional changes. (3) Hypokalemia Is this a current diagnosis for this admission?: Yes Summary: Potassium is borderline. It will likely improve on her home diet. Consider food sources for potassium such as bananas and orange juice. (4) Hyponatremia Is this a current diagnosis for this admission?: Yes Summary: Resolved (5) Flank pain Is this a current diagnosis for this admission?: Yes Summary: Most likely musculoskeletal. Resume home medications. Consider stretching as well as warm compresses. - Additional Information Resuscitation Status: Full Code Discharge Diet: Diabetic Discharge Activity: Activity As Tolerated Prescriptions: Insulin Glargine,Hum.rec.anlog [Lantus Insulin 100 Unit/mL] 15 unit SUBCUT BID 30 Days #1 insuln.pen Home Medications: Clonazepam 0.5 mg PO DAILYP PRN 06/02/18 Cyclobenzaprine HCl [Flexeril 10 mg Tablet] 10 mg PO TIDP PRN 06/02/18 Hydrochlorothiazide [Hydrodiuril 25 mg Tablet] 25 mg PO QAM 06/02/18 L.acidoph,Paracasei, B.lactis [Probiotic] 1 each PO DAILY 06/02/18 Metformin HCl [Metformin HCl ER] 500 mg PO DAILY 06/02/18 Metoprolol Tartrate [Lopressor] 50 mg PO DAILY 06/02/18 Sertraline HCl [Zoloft 50 mg Tablet] 50 mg PO DAILY 06/02/18 Docusate Sodium [Colace 100 mg Capsule] 100 mg PO BID capsule 06/03/18 Hydrochlorothiazide [Hydrodiuril 25 mg Tablet] 25 mg PO QAM tablet 06/03/18 Insulin Glargine,Hum.rec.anlog [Lantus Insulin 100 Unit/mL] 15 unit SUBCUT BID 30 Days #1 insuln.pen 06/03/18 Metoprolol Tartrate [Lopressor 50 mg Tablet] 50 mg PO DAILY tablet 06/03/18 History of Present Illness Patient complains of: Right flank pain. Was also noted to have markedly elevated glucose. History of Present Illness: ZEYAD NEGRO is a 58 year old female please also see the admission history and physical. Basically this 58-year-old female presented to the emergency department with 4-day history of right flank pain. Diagnostic imaging revealed a nonobstructive renal calculus in the left kidney. The discomfort was reproducible with palpation. She does have muscle relaxants at home. They did not seem to be helping. During the course of her evaluation her glucose was found to be 872. She was admitted to the hospitalist service more for managemen t of her glucose as her musculoskeletal pain requires conservative therapy. Hospital Course Hospital Course: The hospital course was punctuated by episodes of hypoglycemia. The Lantus dose at home was 23 units. It was increased to 40 units in the hospital. This caused a significant drop in her glucose. We discussed potential options. I asked her if she ever tried a split dose of Lantus. This is not the recommended dosing however it is commonly used. Because of the hypoglycemia I told her we would try 15 units twice daily for a total of 30 units for the day. Her musculoskeletal discomfort improved slightly. I believe increased activity and conservative therapy will be the best treatment. Physical Exam Vital Signs: Temp Pulse Resp BP Pulse Ox 98.1 F 93 16 143/75 H 100 06/03/18 12:21 06/03/18 12:21 06/03/18 12:21 06/03/18 12:21 06/03/18 12:21 Intake & Output 06/02/18 06/03/18 06/04/18 06:59 06:59 06:59 Intake Total 2237 4700 Balance 2237 4700 Weight 61.6 kg 62.3 kg General appearance: PRESENT: no acute distress, well-developed Head exam: PRESENT: normocephalic Respiratory exam: PRESENT: clear to auscultation iglesia, symmetrical, unlabored. ABSENT: crackles, rales, wheezes Cardiovascular exam: PRESENT: RRR, +S1, +S2 GI/Abdominal exam: PRESENT: normal bowel sounds, soft. ABSENT: tenderness Neurological exam: PRESENT: alert, awake, oriented to person, oriented to place, oriented to time, oriented to situation, CN II-XII grossly intact Psychiatric exam: PRESENT: appropriate affect, normal mood Results Laboratory Results: 06/03/18 04:23 06/03/18 04:23 06/03/18 06/03/18 04:23 04:23 WBC 4.4 RBC 3.96 Hgb 12.3 Hct 35.1 L MCV 89 MCH 31.0 MCHC 35.0 RDW 13.4 Plt Count 149 L Sodium 138.7 Potassium 3.5 L Chloride 101 Carbon Dioxide 32 H Anion Gap 6 BUN 13 Creatinine 0.75 Est GFR ( Amer) > 60 Est GFR (Non-Af Amer) > 60 Glucose 43 L Calcium 9.2 Magnesium 1.8 Impressions: Limited or Localized CT 06/01/18 18:09 IMPRESSION: Small nonobstructing stone left kidney. Qualifiers - * PATIENT BEING DISCHARGED WITH ANY OF THE FOLLOWING DIAGNOSIS: No Plan Discharge Plan: As outlined above Time Spent: Greater than 30 Minutes
[2018-06-04] MEDS ORDERED: METOPROLOL TARTRATE 50 MG TABLET PO SCH (11:30)
== END 2018-06-03 15:10 | disposition home or self-care (01) | DRG 638 ==
LOC: ER 17:36 → EH 19:56 → 4N 21:31
PROVIDERS: ADMIT Emergency Medicine; ATTEND Emergency Medicine
DX: E11.65 Type 2 diabetes mellitus with hyperglycemia (principal); E87.1 Hypo-osmolality and hyponatremia; I12.9 Hypertensive chronic kidney disease with stage 1 through stage 4 chronic kidney disease, or unspecified chronic kidney disease; E11.22 Type 2 diabetes mellitus with diabetic chronic kidney disease; N18.3 Chronic kidney disease, stage 3 (moderate); E87.6 Hypokalemia; N20.0 Calculus of kidney; N89.8 Other specified noninflammatory disorders of vagina; E78.5 Hyperlipidemia, unspecified; K21.9 Gastro-esophageal reflux disease without esophagitis; M19.90 Unspecified osteoarthritis, unspecified site; M79.7 Fibromyalgia; F41.1 Generalized anxiety disorder; Z79.899 Other long term (current) drug therapy; Z79.84 Long term (current) use of oral hypoglycemic drugs; Z79.4 Long term (current) use of insulin; Z90.49 Acquired absence of other specified parts of digestive tract; Z98.51 Tubal ligation status; Z87.891 Personal history of nicotine dependence; Z88.8 Allergy status to other drugs, medicaments and biological substances
CPT/HCPCS: 36415; 76380; 80048; 80053; 80061; 81001; 82803; 82962; 83036; 83735; 84439; 84443; 84481; 85025; 85027; 99285; J0360; J1644; J1815; J2270; J2765; J3480; J3490; J7030; S0119

== ENCOUNTER → 2018-06-24 | Outpatient (CLI) | payer OTHER ==
--- NOTE | 2018-06-24 17:25 | RADIOLOGY REPORT (SQ) ---
EXAM DESCRIPTION: T SPINE AP/LAT COMPLETED DATE/TIME: 06/24/2018 4:54 pm REASON FOR STUDY: LOW BACK PAIN; MID BACK AND RT LOWER RIBS M54.5 LOW BACK PAIN COMPARISON: 03/31/2018 NUMBER OF VIEWS: Two views. TECHNIQUE: AP and lateral radiographic images acquired of the thoracic spine. LIMITATIONS: None. FINDINGS: MINERALIZATION: Normal. ALIGNMENT: Normal. No scoliosis. VERTEBRAE: No fracture or bone lesion. Maintained height, normal segmentation. DISCS: Multilevel osteophytes. No dominant level. HARDWARE: None in the spine. MEDIASTINUM AND SOFT TISSUES: Normal heart size and aortic contour. No soft tissue abnormality. VISUALIZED LUNG [place]: Clear. OTHER: No other significant finding. IMPRESSION: Mild diffuse degenerative changes. No change from 03/31/2018. TECHNICAL DOCUMENTATION: JOB ID: [id number] [employer]- All Rights Reserved Reading location - IP/workstation name: [email or web address]
--- NOTE | 2018-06-24 17:25 | RADIOLOGY REPORT (SQ) ---
EXAM DESCRIPTION: LUMBAR SPINE 2 VIEWS COMPLETED DATE/TIME: 06/24/2018 4:54 pm REASON FOR STUDY: LOW BACK PAIN; MID BACK AND RT LOWER RIBS M54.5 LOW BACK PAIN COMPARISON: None. NUMBER OF VIEWS: Two views. TECHNIQUE: AP and lateral radiographic images acquired of the lumbar spine. LIMITATIONS: None. FINDINGS: MINERALIZATION: Normal. SEGMENTATION: Normal. No transitional anatomy. ALIGNMENT: Normal. VERTEBRAE: Maintained height. No fracture or worrisome bone lesion. DISCS: Preserved height. No significant osteophytes or end plate irregularity. POSTERIOR ELEMENTS: Pedicles and facets are intact. No pars defect or posterior arch defects. HARDWARE: None in the spine. PARASPINAL SOFT TISSUES: Normal. PELVIS: Intact as visualized. No fractures or worrisome bone lesions. SI joints intact. OTHER: No other significant finding. IMPRESSION: NORMAL 2 VIEW LUMBAR SPINE. TECHNICAL DOCUMENTATION: JOB ID: [id number] [employer]- All Rights Reserved Reading location - IP/workstation name: [email or web address]
--- NOTE | 2018-06-24 17:28 | RADIOLOGY REPORT (SQ) ---
EXAM DESCRIPTION: RIBS RIGHT W/O PA CHEST COMPLETED DATE/TIME: 06/24/2018 4:54 pm REASON FOR STUDY: LOW BACK PAIN; MID BACK AND RT LOWER RIBS M54.5 LOW BACK PAIN COMPARISON: None. NUMBER OF VIEWS: Four views TECHNIQUE: Images acquired of the right ribs in the area of focal concern. LIMITATIONS: None. FINDINGS: RIBS: There appear to be old fractures of the 5th through 8th ribs posterolaterally on the right. No acute fracture is appreciated. LUNGS: Limited exam. No obvious pneumothorax. No pleural effusion. OTHER: No other significant finding. IMPRESSION: NO ACUTE DISPLACED RIB FRACTURE. COMMENT: SITE OF TRAUMA/COMPLAINT MARKED/STAMP COMPLETED: Yes TECHNICAL DOCUMENTATION: JOB ID: [id number] [employer]- All Rights Reserved Reading location - IP/workstation name: [email or web address]
== END ==
LOC: CCC 16:11
DX: M54.5 Low back pain (principal)
CPT/HCPCS: 72070; 72100

== ENCOUNTER 2018-06-29 17:31 | Emergency (ER) | payer SELFPAY ==
[2018-06-29] MEDS ORDERED: LIDOCAINE 5% (700 MG) TRANSDERMAL ADH..PATCH TP ONE (19:01)
[2018-06-29] MEDS ORDERED: ACETAMINOPHEN 325 MG TABLET PO ONE (19:03)
[2018-06-29 19:26] LABS: AMORPHOUS SEDIMENT,URINE TRACE /HPF; APPEARANCE,URINE CLOUDY; BILIRUBIN,URINE NEGATIVE (NEGATIVE); COLOR,URINE YELLOW; GLUCOSE, URINE NEGATIVE (NEGATIVE); KETONES,URINE NEGATIVE (NEGATIVE); LEUKOCYTE ESTERASE,URINE LARGE (NEGATIVE); NITRITE,URINE NEGATIVE (NEGATIVE); PROTEIN,URINE NEGATIVE (NEGATIVE); URINE SPECIFIC GRAVITY 1.016; UROBILINOGEN,URINE NEGATIVE mg/dL (<2.0)
[2018-06-29] MEDS ORDERED: LIDOCAINE 1% INJ-PF (10 MG/ML) 30 ML SDV INJ ONE (19:41)
[2018-06-29] MEDS ORDERED: CEFTRIAXONE INJ 1000 MG VIAL IM ONE (19:41)
[2018-06-29] MEDS ORDERED: PHENAZOPYRIDINE HCL 200 MG TABLET PO ONE (19:42)
[2018-06-29] MEDS ORDERED: HYDROCODONE/ACETAMINOPHEN 5-325 MG (6 TAB/ER DISP) PO PRN (19:56)
--- NOTE | 2018-06-29 19:58 | ER Document Report ---
HPI - HPI Time Seen by Provider: 06/29/18 18:42 Onset: Last week Onset/Duration: Worse Quality of pain: Achy Pain Level: 5 Context: Patient presents complaining of a history of chronic right-sided back pain for over 2 months. Patient states she has seen her doctor for this issue and has had outpatient x-rays this past week. Patient states that she has had some urinary frequency and dysuria symptoms over the past week. Patient denies any fever nausea or vomiting. Patient states she does have an appointment with her primary doctor for recheck in 2 days. Associated Symptoms: Other - Dysuria, right-sided back pain. denies: Fever Exacerbated by: Movement, Walking Relieved by: Denies Similar symptoms previously: Yes Recently seen / treated by doctor: Yes - ROS ROS below otherwise negative: Yes Systems Reviewed and Negative: Yes All other systems reviewed and negative - CONSTITUTIONAL Constitutional: DENIES: Fever, Chills - RESPIRATORY Respiratory: DENIES: Trouble Breathing, Coughing - GASTROINTESTINAL Gastrointestinal: REPORTS: Abdominal Pain - Suprapubic. DENIES: Nausea, Patient vomiting - URINARY Urinary: REPORTS: Dysuria, Frequency - REPRODUCTIVE Reproductive: DENIES: : - MUSCULOSKELETAL Musculoskeletal: REPORTS: Back Pain - Chronic right-sided back pain for over 2 months - DERM Skin Color: Normal Skin Problems: None Past Medical History - General Information source: Patient - Social History Smoking Status: Never Smoker Frequency of alcohol use: None Drug Abuse: None Occupation: Beauty Operator Apprentice Lives with: Family Family History: CAD, DM, Hypertension, Malignancy - Colon cancer and leukemia, Other - COPD Patient has suicidal ideation: No Patient has homicidal ideation: No - Past Medical History Cardiac Medical History: Reports: Hx Hypercholesterolemia, Hx Hypertension Denies: Hx Coronary Artery Disease, Hx Heart Attack Pulmonary Medical History: Reports: Hx Bronchitis, Hx Pneumonia Denies: Hx Asthma, Hx COPD Neurological Medical History: Denies: Hx Cerebrovascular Accident, Hx Migraine, Hx Seizures Endocrine Medical History: Reports: Hx Diabetes Mellitus Type 2. Denies: Hx Hyperthyroidism, Hx Hypothyroidism Renal/ Medical History: Reports: Hx Renal Insufficiency. Denies: Hx Peritoneal Dialysis GI Medical History: Reports: Hx Gastritis, Hx Gastroesophageal Reflux Disease, Hx Irritable Bowel. Denies: Hx Cirrhosis, Hx Hepatitis Musculoskeletal Medical History: Reports Hx Arthritis, Reports Hx Fibromyalgia, Reports Hx Musculoskeletal Deformity Skin Medical History: Denies Hx Eczema, Denies Hx Psoriasis Psychiatric Medical History: Reports: Hx Anxiety, Hx Depression Infectious Medical History: Denies: Hx Hepatitis Past Surgical History: Reports: Hx Appendectomy, Hx Section, Hx Cholecystectomy, Hx Orthopedic Surgery - L foot, Hx Tonsillectomy - addenoids, Hx Tubal Ligation. Denies: Hx Hysterectomy, Hx Pacemaker - Immunizations Immunizations up to date: Yes Hx Diphtheria, Pertussis, Tetanus Vaccination: Yes Hx Pneumococcal Vaccination: 06/03/00 Vertical Provider Document - CONSTITUTIONAL Agree With Documented VS: Yes Exam Limitations: No Limitations General Appearance: WD/WN, No Apparent Distress - INFECTION CONTROL TRAVEL OUTSIDE OF THE [place] IN LAST 30 DAYS: No - HEENT HEENT: Atraumatic, Normocephalic - NECK Neck: Normal Inspection - RESPIRATORY Respiratory: Breath Sounds Normal, No Respiratory Distress - CARDIOVASCULAR Cardiovascular: Regular Rate, Regular Rhythm - GI/ABDOMEN Gastrointestinal: Abdomen Soft, Abdomen Tender - Suprapubic, No Organomegaly - BACK Back: Abnormal Inspection - Right lower thoracic paraspinal tenderness, CVA Tenderness-Right - MUSCULOSKELETAL/EXTREMETIES Musculoskeletal/Extremeties: NICHOLAS MAK - NEURO Level of Consciousness: Awake, Alert, Appropriate Motor/Sensory: No Motor Deficit - DERM Integumentary: Warm, Dry, No Rash Course - Re-evaluation Re-evalutation: 06/29/18 19:54 Patient does have findings worrisome for a UTI. Patient had a previous CT scan performed during a recent hospital admission in which she did have a kidney stone that was on the left side. Patient has had chronic pain to the right flank area for over 2 months. Patient states that only recently did the pain worsened. Patient denies any fever, nausea or vomiting. Patient with stable vital signs, no concern for sepsis. Will treat for UTI in the setting of chronic right back pain. 06/29/18 20:53 Patient states that she has not eaten since breakfast today other than some potatoes before coming here. Patient states she feels as though her blood sugar is dropping and would like us to check her blood sugar. Patient's Accu-Chek was 51, patient given crackers and juice to eat. Consulted with Dr. Pascual regarding patient presentation. States that patient is not on any oral hypoglycemic medication and has not had her evening dose of her Lantus therefore once patient is feeling better she can likely be discharged without having to recheck her blood sugar. 06/29/18 21:28 After eating peanut butter and crackers, 2 cups of juice and additional ashley crackers, patient reports she is feeling much better. - Vital Signs Vital signs: Temp Pulse Resp BP Pulse Ox 97.6 F 79 16 143/90 H 100 06/29/18 17:38 06/29/18 17:38 06/29/18 17:38 06/29/18 17:38 06/29/18 17:38 - Laboratory Laboratory results interpreted by me: 06/29/18 19:11 Ur Leukocyte Esterase LARGE H 06/29/18 19:54 Labs- Entire Visit 06/29/18 19:11 Urine Color YELLOW Urine Appearance CLOUDY Urine pH 7.0 Ur Specific [place] 1.016 Urine Protein NEGATIVE Urine Glucose (UA) NEGATIVE Urine Ketones NEGATIVE Urine Blood NEGATIVE Urine Nitrite NEGATIVE Urine Bilirubin NEGATIVE Urine Urobilinogen NEGATIVE Ur Leukocyte Esterase LARGE H Urine WBC (Auto) >182 Urine RBC (Auto) 6 U Hyaline Cast (Auto) 2 Urine Bacteria (Auto) 1+ Squamous Epi Cells Auto 1 U Non-Squamous Epis Auto 1 Amorphous Sediment Auto TRACE Urine Mucus (Auto) RARE Urine Ascorbic Acid NEGATIVE - Diagnostic Test Radiology reviewed: Reports reviewed - Reviewed patient's outpatient x-ray reports from 06/24/2018, also reviewed patient's previous CT report from admission in May 2018. Discharge - Discharge Clinical Impression: Flank pain Chronic back pain Qualifiers: Back pain location: thoracic back pain Back pain laterality: right Qualified Code(s): M54.6 - Pain in thoracic spine UTI (urinary tract infection) Qualifiers: Urinary tract infection type: site unspecified Hematuria presence: without hematuria Qualified Code(s): N39.0 - Urinary tract infection, site not specified Condition: Stable Disposition: HOME, SELF-CARE Instructions: Cephalexin ([facility]), Low Back Pain ([facility]), Urinary Anesthetic Agent ([facility]), Urinary Tract Infection ([facility]) Additional Instructions: Return immediately for any new or worsening symptoms Followup with your primary care provider, call tomorrow to make a followup appointment Return immediately for any fever, increased pain, vomiting or any concerning symptoms Urine culture is pending, we will call if you need any different treatment. Prescriptions: Cephalexin Monohydrate [Keflex 500 mg Capsule] 500 mg PO Q6H 7 Days capsule Hydrocodone/Acetaminophen [[place] 5-325 mg Tablet] 1 tab PO Q6 PRN #10 tablet PRN Reason: Phenazopyridine HCl [Pyridium 200 mg Tablet] 200 mg PO TID #15 tablet Forms: Return to Work Referrals: [facility] [Primary Care Provider] - Follow up tomorrow [facility] [Provider Group] - Follow up tomorrow
[2018-06-29 21:36] VITALS: BP 149/81
== END 2018-06-29 21:35 | disposition home or self-care (01) ==
LOC: ER 17:31
DX: M54.6 Pain in thoracic spine (principal); R10.30 Lower abdominal pain, unspecified; M54.9 Dorsalgia, unspecified; R35.0 Frequency of micturition; R30.0 Dysuria; I10 Essential (primary) hypertension; E11.9 Type 2 diabetes mellitus without complications
CPT/HCPCS: 99284; 96372; 87086; 82962; 87088; 81001; J3490 ×2; J0696

== ENCOUNTER → 2018-07-24 | Outpatient (CLI) | payer OTHER ==
[2018-07-24 09:08] LABS: HEMATOCRIT 39.9 % (36.0-47.0); HEMOGLOBIN 13.5 g/dL (12.0-15.5); MEAN CORPUSCULAR HEMOGLOBIN 30.5 pg (27.0-33.4); MEAN CORPUSCULAR HGB CONC 33.9 g/dL (32.0-36.0); MEAN CORPUSCULAR VOLUME 90 fl (80-97); PLATELET COUNT 187 10^3/uL (150-450); RED BLOOD COUNT 4.45 10^6/uL (3.72-5.28); WHITE BLOOD COUNT 5.5 10^3/uL (4.0-10.5)
[2018-07-24 09:28] LABS: ALANINE AMINOTRANSFERASE 15 U/L (9-52); ALBUMIN 4.2 g/dL (3.5-5.0); ALKALINE PHOSPHATASE 89 U/L (38-126); ANION GAP 9 (5-19); ASPARTATE AMINO TRANSFERASE 19 U/L (14-36); BILIRUBIN,DIRECT 0.3 mg/dL (0.0-0.4); BILIRUBIN,TOTAL 0.8 mg/dL (0.2-1.3); BLOOD UREA NITROGEN 20 mg/dL (7-20); CALCIUM 9.6 mg/dL (8.4-10.2); CARBON DIOXIDE 32 mmol/L (22-30); CHLORIDE 98 mmol/L (98-107); CHOLESTEROL 166.43 mg/dL (0-200); GLUCOSE 278 mg/dL (75-110); POTASSIUM 4.3 mmol/L (3.6-5.0); SODIUM 138.5 mmol/L (137-145); TOTAL PROTEIN 6.6 g/dL (6.3-8.2); TRIGLYCERIDES 76 mg/dL (<150)
[2018-07-24 09:39] LABS: DIRECT LDL 75 mg/dL (<100)
[2018-07-24 10:44] LABS: ABSOLUTE LYMPHOCYTES# (MANUAL) 1.2 10^3/uL (0.5-4.7); ABSOLUTE MONOCYTES # (MANUAL) 0.2 10^3/uL (0.1-1.4); ABSOLUTE NEUTROPHILS# (MANUAL) 4.1 10^3/uL (1.7-8.2); BASOPHILS % (MANUAL) 0 % (0-2); EOSINOPHILS % (MANUAL) 1 % (0-6); HYPOCHROMASIA SLIGHT; LYMPHOCYTES % (MANUAL) 21 % (13-45); MONOCYTES % (MANUAL) 3 % (3-13); PLATELET COMMENT ADEQUATE; SEGMENTED NEUTROPHILS % (MAN) 75 % (42-78); TOTAL CELLS COUNTED 100; TOXIC GRANULATION SLIGHT
== END ==
LOC: OD 08:32
DX: Z13.1 Encounter for screening for diabetes mellitus (principal)
CPT/HCPCS: 36415; 80053; 80061; 83036; 84443; 85025

== ENCOUNTER → 2018-10-23 | Outpatient (CLI) | payer MEDICAID ==
--- NOTE | 2018-10-23 15:38 | WOMENS IMAGING REPORT ---
EXAM DESCRIPTION: 3D SCREENING MAMMO BILAT COMPLETED DATE/TIME: 10/23/2018 3:09 pm REASON FOR STUDY: Z12.31 ROUTINE 3D BILATERAL SCREENING Z12.31 ENCNTR SCREEN MAMMOGRAM FOR MALIGNAN T NEOPLASM OF SAY COMPARISON: 2013 EXAM PARAMETERS: Views: Standard craniocaudal and mediolateral oblique views of each breast recorded using digital acquisition and breast tomosynthesis. Read with the assistance of CAD. .[facility] - [employer]2 [employer]ure Instructor Version 9.2 LIMITATIONS: None. FINDINGS: No suspicious masses, suspicious calcifications or architectural distortion. No areas of c oncern. IMPRESSION: Assessment: Negative MAMMOGRAM. BIRADS 1. BREAST DENSITY: c. The breasts are heterogeneously dense, which may obscure small masses. BIRAD: 1 NEGATIVE RECOMMENDATION: ROUTINE SCREENING COMMENT: The patient has been notified of the results by letter per SA requirements. Additional no tification policies are in place for contacting patient with suspicious or incomplete findings. Quality ID #[id number]: The [employer] recommends an annual screening mammogram for women aged 40 years or over. This facility utilizes a reminder system to ensure that all patients receive reminder letters, and/or direct phone calls for appointments. This includes reminders for routine scr eening mammograms, diagnostic mammograms, or other Breast Imaging Interventions when appropriate. Th is patient will be placed in the appropriate reminder system. TECHNICAL DOCUMENTATION: FINDING NUMBER: (1) ASSESSMENT: (1) JOB ID: [id number] [employer]- All Rights Reserved Reading location - IP/workstation name: [email or web address]
== END ==
LOC: WI 14:52
PROVIDERS: ATTEND Internal Medicine
DX: Z12.31 Encounter for screening mammogram for malignant neoplasm of breast (principal)
CPT/HCPCS: 77063; 77067

== ENCOUNTER 2018-11-19 15:35 | Emergency (ER) | payer MEDICAID ==
[2018-11-19] MEDS ORDERED: DICYCLOMINE HCL INJ 20 MG/2 ML AMPULE IM ONE (18:16)
--- NOTE | 2018-11-19 18:17 | ER Document Report ---
ED Medical Screen (RME) - General Chief Complaint: Epigastric Pain Stated Complaint: ABDOMINAL PAIN Time Seen by Provider: 11/19/18 17:49 Primary Care Provider: NATA ROOT MD [Primary Care Provider] - Follow up as needed Mode of Arrival: Wheelchair Information source: Patient Notes: Patient is a 50-year-old female presented to the emergency department with epigastric pain. Patient reports pain is been severe for the last 5 days. She reports mild nausea but denies any vomiting or diarrhea. Patient has not had any fever. Exam: Patient very restless. Generalized tenderness to palpation to upper abdomen. I have greeted and performed a rapid initial assessment of this patient. A comprehensive ED assessment and evaluation of the patient, analysis of test results and completion of the medical decision making process will be conducted by additional ED providers. Dictation of this chart was performed using voice recognition software; therefore, there may be some unintended grammatical errors. TRAVEL OUTSIDE OF THE [place] IN LAST 30 DAYS: No - Related Data Allergies/Adverse Reactions: pseudoephedrine HCl [From Actifed] Allergy (Verified 03/06/18 17:35) ramipril [From Altace] Allergy (Verified 03/06/18 17:35) triprolidine HCl [From [employer]] Allergy (Verified 03/06/18 17:35) lisinopril [Lisinopril] Adverse Reaction (Intermediate, Verified 03/06/18 17:35) Past Medical History - Social History Chew tobacco use (# tins/day): No Frequency of alcohol use: None Drug Abuse: None - Past Medical History Cardiac Medical History: Reports: Hx Hypercholesterolemia, Hx Hypertension Denies: Hx Coronary Artery Disease, Hx Heart Attack Pulmonary Medical History: Reports: Hx Bronchitis, Hx Pneumonia Denies: Hx Asthma, Hx COPD Neurological Medical History: Denies: Hx Cerebrovascular Accident, Hx Migraine, Hx Seizures Endocrine Medical History: Reports: Hx Diabetes Mellitus Type 2. Denies: Hx Hyperthyroidism, Hx Hypothyroidism Renal/ Medical History: Reports: Hx Renal Insufficiency. Denies: Hx Peritoneal Dialysis GI Medical History: Reports: Hx Gastritis, Hx Gastroesophageal Reflux Disease, Hx Irritable Bowel. Denies: Hx Cirrhosis, Hx Hepatitis Musculoskeltal Medical History: Reports Hx Arthritis, Reports Hx Fibromyalgia, Reports Hx Musculoskeletal Deformity Skin Medical History: Denies Hx Eczema, Denies Hx Psoriasis Psychiatric Medical History: Reports: Hx Anxiety, Hx Depression Infectious Medical History: Denies: Hx Hepatitis Past Surgical History: Reports: Hx Appendectomy, Hx Section, Hx Cholecystectomy, Hx Orthopedic Surgery - L foot, Hx Tonsillectomy - addenoids, Hx Tubal Ligation. Denies: Hx Hysterectomy, Hx Pacemaker - Immunizations Immunizations up to date: Yes Hx Diphtheria, Pertussis, Tetanus Vaccination: Yes Physical Exam - Vital signs Vitals: Pulse Resp BP Pulse Ox 93 16 138/84 H 96 11/19/18 16:19 11/19/18 16:19 11/19/18 16:19 11/19/18 16:19 Course - Vital Signs Vital signs: Temp Pulse Resp BP Pulse Ox 93 16 138/84 H 96 11/19/18 16:19 11/19/18 16:19 11/19/18 16:19 11/19/18 16:19 Doctor's Discharge - Discharge Referrals: NATA ROOT MD [Primary Care Provider] - Follow up as needed
--- NOTE | 2018-11-19 18:35 | RADIOLOGY REPORT (SQ) ---
EXAM DESCRIPTION: KUB/ABDOMEN (SINGLE VIEW) COMPLETED DATE/TIME: 11/19/2018 6:21 pm REASON FOR STUDY: abd pain COMPARISON: 12/11/2015 NUMBER OF VIEWS: One view. TECHNIQUE: Supine radiographic image of the abdomen acquired. LIMITATIONS: None. FINDINGS: BOWEL GAS PATTERN: Normal bowel gas pattern. No dilated loops. CALCIFICATIONS: No suspicious calcifications. SOFT TISSUES: No gross mass or suggestion of organomegaly. HARDWARE: None in the abdomen. BONES: No acute fracture. No worrisome bone lesions. OTHER: No other significant finding. IMPRESSION: NO RADIOGRAPHIC EVIDENCE FOR ACUTE ABDOMINAL DISEASE. TECHNICAL DOCUMENTATION: JOB ID: [id number] [employer]- All Rights Reserved Reading location - IP/workstation name: [email or web address]
[2018-11-19 19:05] LABS: ABSOLUTE LYMPHOCYTES (AUTO) 1.1 10^3/uL (0.5-4.7); ABSOLUTE MONOCYTES (AUTO) 0.4 10^3/uL (0.1-1.4); ABSOLUTE NEUT (AUTO) 5.2 10^3/uL (1.7-8.2); BASOPHILS % (AUTO) 0.6 % (0-2); EOSINOPHILS % (AUTO) 0.1 % (0-6); HEMATOCRIT 41.3 % (36.0-47.0); HEMOGLOBIN 13.9 g/dL (12.0-15.5); LYMPHOCYTES % (AUTO) 16.1 % (13-45); MEAN CORPUSCULAR HEMOGLOBIN 30.6 pg (27.0-33.4); MEAN CORPUSCULAR HGB CONC 33.6 g/dL (32.0-36.0); MEAN CORPUSCULAR VOLUME 91 fl (80-97); MONOCYTES % (AUTO) 5.5 % (3-13); PLATELET COUNT 227 10^3/uL (150-450); RED BLOOD COUNT 4.53 10^6/uL (3.72-5.28); RED CELL DISTRIBUTION WIDTH 13.7 % (11.5-14.0); SEGMENTED NEUTROPHILS % (AUTO) 77.7 % (42-78); TOTAL CELLS COUNTED % (AUTO) 100 %; WHITE BLOOD COUNT 6.7 10^3/uL (4.0-10.5)
[2018-11-19 19:10] LABS: APPEARANCE,URINE CLEAR; BILIRUBIN,URINE NEGATIVE (NEGATIVE); COLOR,URINE YELLOW; GLUCOSE, URINE >=500 mg/dL (NEGATIVE); KETONES,URINE 80 mg/dL (NEGATIVE); LEUKOCYTE ESTERASE,URINE NEGATIVE (NEGATIVE); NITRITE,URINE NEGATIVE (NEGATIVE); PROTEIN,URINE NEGATIVE (NEGATIVE); URINE SPECIFIC GRAVITY 1.032; UROBILINOGEN,URINE NEGATIVE mg/dL (<2.0)
[2018-11-19 19:24] LABS: ALANINE AMINOTRANSFERASE 22 U/L (9-52); ALBUMIN 4.3 g/dL (3.5-5.0); ALKALINE PHOSPHATASE 91 U/L (38-126); ANION GAP 15 (5-19); ASPARTATE AMINO TRANSFERASE 17 U/L (14-36); BILIRUBIN,DIRECT 0.3 mg/dL (0.0-0.4); BLOOD UREA NITROGEN 22 mg/dL (7-20); CALCIUM 9.9 mg/dL (8.4-10.2); CARBON DIOXIDE 26 mmol/L (22-30); CHLORIDE 94 mmol/L (98-107); GLUCOSE 382 mg/dL (75-110); LIPASE 101.2 U/L (23-300); POTASSIUM 4.1 mmol/L (3.6-5.0); SODIUM 134.5 mmol/L (137-145)
--- NOTE | 2018-11-19 20:46 | EKG REPORT ---
SEVERITY:- NORMAL ECG - SINUS RHYTHM : Confirmed by: Sandra Pretty MD 19-Nov-2018 20:46:01
[2018-11-19] MEDS ORDERED: LIDOCAINE 2% VISCOUS SOLN 20 ML UDCUP PO ONE (22:51)
[2018-11-19] MEDS ORDERED: MAG HYDROX/AL HYDROX/SIMETH SUSP 30 ML UDCUP PO ONE (22:51)
[2018-11-19] MEDS ORDERED: FAMOTIDINE INJ/PF 20 MG/2 ML SDV IV ONE (22:52)
--- NOTE | 2018-11-20 | ER Document Report ---
Entered by STEVEN WARNER SCRIBE 11/19/18 2038 Acting as scribe for:LIMA CONWAY MD ED General - General Chief Complaint: Epigastric Pain Stated Complaint: ABDOMINAL PAIN Time Seen by Provider: 11/19/18 17:49 Primary Care Provider: NATA ROOT MD [Primary Care Provider] - Follow up as needed Mode of Arrival: Wheelchair Information source: Patient Notes: Patient is a 58 year old female presenting to the emergency department co mplaining of abdominal pain onset 6 days ago. Patient states the pain is located epigastrically and reports associated nausea. She states she presented to pain management 6 days ago and was instructed to stop taking Klonopin due to also taking Percocet for chronic back pain. She states she presented to her PCP 2 days ago complaining of her symptoms and was told her abdominal pain could be attributed to no longer taking Klonopin. Patient states she has not taken Percocet in 3-4 months. She states she is also taking the Farxiga, Lantus and NovoLog. Patient states she expects her blood sugar to be elevated due to having a decreased appetite for the last few days. TRAVEL OUTSIDE OF THE [place] IN LAST 30 DAYS: No - Related Data Allergies/Adverse Reactions: pseudoephedrine HCl [From Actifed] Allergy (Verified 03/06/18 17:35) ramipril [From Altace] Allergy (Verified 03/06/18 17:35) triprolidine HCl [From [employer]ifed] Allergy (Verified 03/06/18 17:35) lisinopril [Lisinopril] Adverse Reaction (Intermediate, Verified 03/06/18 17:35) Past Medical History - General Information source: Patient - Social History Smoking Status: Never Smoker Chew tobacco use (# tins/day): No Frequency of alcohol use: None Drug Abuse: None Family History: CAD, DM, Hypertension, Malignancy - Colon cancer and leukemia, Other - COPD Patient has suicidal ideation: No Patient has homicidal ideation: No - Past Medical History Cardiac Medical History: Reports: Hx Hypercholesterolemia, Hx Hypertension Pulmonary Medical History: Reports: Hx Bronchitis, Hx Pneumonia Endocrine Medical History: Reports: Hx Diabetes Mellitus Type 2 Renal/ Medical History: Reports: Hx Renal Insufficiency GI Medical History: Reports: Hx Gastritis, Hx Gastroesophageal Reflux Disease, Hx Irritable Bowel Musculoskeletal Medical History: Reports Hx Arthritis, Reports Hx Fibromyalgia, Reports Hx Musculoskeletal Deformity Psychiatric Medical History: Reports: Hx Anxiety, Hx Depression Past Surgical History: Reports: Hx Appendectomy, Hx Section, Hx Cholecystectomy, Hx Orthopedic Surgery - L foot, Hx Tonsillectomy - addenoids, Hx Tubal Ligation - Immunizations Immunizations up to date: Yes Hx Diphtheria, Pertussis, Tetanus Vaccination: Yes Hx Pneumococcal Vaccination: 06/03/00 Review of Systems - Review of Systems Constitutional: No symptoms reported EENT: No symptoms reported Cardiovascular: No symptoms reported Respiratory: No symptoms reported Gastrointestinal: See HPI, Abdominal pain, Nausea Genitourinary: No symptoms reported Female Genitourinary: No symptoms reported Musculoskeletal: No symptoms reported Skin: No symptoms reported Hematologic/Lymphatic: No symptoms reported Neurological/Psychological: No symptoms reported -: Yes All other systems reviewed and negative Physical Exam - Vital signs Vitals: Pulse Resp BP Pulse Ox 93 16 138/84 H 96 11/19/18 16:19 11/19/18 16:19 11/19/18 16:19 11/19/18 16:19 - Notes Notes: GENERAL: Alert, interacts well. No acute distress. HEAD: Normocephalic, atraumatic. EYES: Pupils equal, round, and reactive to light. Extraocular movements intact. ENT: Oral mucosa moist, tongue midline. Ketone odor. NECK: Full range of motion. Supple. Trachea midline. LUNGS: Clear to auscultation bilaterally, no wheezes, rales, or rhonchi. No respiratory distress. Anterior inferior rib tenderness to palpation bilaterally. HEART: Regular rate and rhythm. No murmurs, gallops, or rubs. ABDOMEN: Soft, epigastric tenderness to palpation. Non-distended. Bowel sounds present in all 4 quadrants. No guarding, rigidity, or rebound. EXTREMITIES: Moves all 4 extremities spontaneously. No edema, radial and dorsalis pedis pulses 2/4 bilaterally. No cyanosis. NEUROLOGICAL: Alert and oriented x3. Normal speech. PSYCH: Normal affect, normal mood. SKIN: Warm, dry, normal turgor. No rashes or lesions noted. Course - Re-evaluation Re-evalutation: 11/20/18 00:05 The patient reports that her abdomen feels much better after drinking the GI cocktail. She also admits that she does not check her sugars very often at home. Therefore her NovoLog which has a fixed dose and a sliding scale dose is not appropriately adjusted. Her hemoglobin A1c is 9.2 and she states that is much better than normal for her. - Vital Signs Vital signs: Temp Pulse Resp BP Pulse Ox 93 16 138/84 H 96 11/19/18 16:19 11/19/18 16:19 11/19/18 16:19 11/19/18 16:19 - Laboratory Result Diagrams: 11/19/18 18:30 11/19/18 18:30 Laboratory results interpreted by me: 11/19/18 11/19/18 11/19/18 18:30 18:30 18:30 Sodium 134.5 L Chloride 94 L BUN 22 H Est GFR (Non-Af Amer) 54 L Glucose 382 H POC Glucose Hemoglobin A1c % 9.2 H Urine Glucose (UA) >=500 H Urine Ketones 80 H 11/20/18 01:50 Sodium Chloride BUN Est GFR (Non-Af Amer) Glucose POC Glucose 366 H Hemoglobin A1c % Urine Glucose (UA) Urine Ketones - EKG Interpretation by Me EKG shows normal: Sinus rhythm, [place], Intervals, QRS Complexes, ST-T Waves Rate: Normal - 78 Rhythm: NSR Discharge - Discharge Clinical Impression: Hyperglycemia due to type 1 diabetes mellitus, Ketosis due to diabetes GERD (gastroesophageal reflux disease) Qualifiers: Esophagitis presence: esophagitis presence not specified Qualified Code(s): K21.9 - Gastro-esophageal reflux disease without esophagitis Condition: Stable Disposition: HOME, SELF-CARE Additional Instructions: Reflux Disease (GERD) Gastro-Esophageal Reflux Disease (GERD) is caused by stomach acid refluxing back up into the esophagus. The valve at the end of the esophagus may be weak. This is common in persons with a hiatal hernia. GERD symptoms can include indigestion, chest pain, heartburn, or food "sticking." Certain foods, alcohol, and aspirin can make GERD worse. Treatment depends on the severity. Usually, antacids or acid-suppressing medicines are used. When the esophagus is acutely inflamed, the physician will often prescribe membrane-protective drugs such as Carafate. Some patients benefit from medication such as Reglan that tightens the valve at the top of the stomach. Avoid those foods that bring on your symptoms. For many people, these foods are coffee, chocolate, onions, garlic, and carbonated drinks. Don't use alcohol, aspirin, caffeine, or tobacco. Don't eat late at night -- within 4 hours of bedtime. Don't over-eat. If necessary, elevate the head of your bed about 4 inches so that stomach acid will not roll up into your esophagus. Call the doctor if you develop severe chest pain, inability to swallow fluids, fever, or worsening symptoms. \\ Start taking Prilosec OTC once daily. Take antacids between meals and at bedtime. Be sure to check your sugars at least twice daily and use your sliding scale insulin according to your blood sugars. Follow-up with your primary care provider if not improving. RETURN TO THE EMERGENCY ROOM IF ANY NEW OR WORSENING SYMPTOMS. Referrals: NATA ROOT MD [Primary Care Provider] - Follow up as needed Scribe Attestation: 11/20/18 01:47 I personally performed the services described in the documentation, reviewed and edited the documentation which was dictated to the scribe in my presence, and it accurately records my words and actions. I personally performed the services described in the documentation, reviewed and edited the documentation which was dictated to the scribe in my presence, and it accurately records my words and actions.
[2018-11-20] MEDS ORDERED: INSULIN REG, HUMAN 100 UNIT/ML 3 ML VIAL (PYX) IV ONE ×3 (00:03→02:08)
[2018-11-20 03:24] VITALS: BP 139/64
== END 2018-11-20 03:24 | disposition home or self-care (01) ==
LOC: ER 15:35
DX: E10.65 Type 1 diabetes mellitus with hyperglycemia (principal); E10.10 Type 1 diabetes mellitus with ketoacidosis without coma; K21.9 Gastro-esophageal reflux disease without esophagitis; R10.13 Epigastric pain; R10.9 Unspecified abdominal pain; R11.0 Nausea; M54.9 Dorsalgia, unspecified; G89.29 Other chronic pain; Z79.899 Other long term (current) drug therapy; Z79.4 Long term (current) use of insulin; I10 Essential (primary) hypertension
CPT/HCPCS: 93005; 99284; 96372; 96374; 36415; 82962; 83690; 85025; 80053; 81001; 83036; 74018; 93010; J0500; J3490 ×2; J1815; S0028

== ENCOUNTER 2018-11-21 10:32 | Emergency (ER) | payer MEDICAID ==
[2018-11-21] MEDS ORDERED: LIDOCAINE 2% VISCOUS SOLN 20 ML UDCUP PO ONE (11:33)
[2018-11-21] MEDS ORDERED: METOCLOPRAMIDE HCL ORAL SOLN 10 MG/10 ML UDCUP PO ONE (11:33)
[2018-11-21] MEDS ORDERED: MAG HYDROX/AL HYDROX/SIMETH SUSP 30 ML UDCUP PO ONE (11:33)
--- NOTE | 2018-11-21 11:38 | ER Document Report ---
ED Medical Screen (RME) - General Chief Complaint: Abdominal Pain Stated Complaint: ABDOMINAL PAIN Time Seen by Provider: 11/21/18 11:19 Primary Care Provider: NATA ROOT MD [Primary Care Provider] - Follow up as needed Notes: Patient is a 50-year-old female history of gastritis and diabetes who presents to the emergency department the chief complaint of epigastric pain. Patient states that she was seen by her primary care physician Dr. Root on Saturday and was told that her abdominal pain was due to her stopping her Klonopin. Patient states that she came to the emergency department due for continued pain on Saturday when she was diagnosed with ketosis and acid reflux. Patient was told to start Mylanta and Prilosec. Patient states she did start those yesterday but continues to have the epigastric pain. Patient is tearful in triage stating that she cannot live like this as she has been under a lot of stress, has to take care of her grandchildren and has not been able to work due to the epigastric pain. Patient states she has had a significant GI history to include hiatal hernia, gastritis, duodenitis, esophagitis, colitis. Patient states her last bowel movement was 2 days ago and was normal. Patient denies blood or dark tarry stools. Patient states that she has had nausea without vomiting. Patient has had her appendix bladder removed. Patient states is been years since her last EGD. Patient also states that her sugars have been running high at home. Patient states that her monitor reads greater than 500 despite her taking 3 doses of NovoLog yesterday. Patient states she is also takes pills for her diabetes. TRAVEL OUTSIDE OF THE [place] IN LAST 30 DAYS: No - Related Data Allergies/Adverse Reactions: pseudoephedrine HCl [From Actifed] Allergy (Verified 03/06/18 17:35) ramipril [From Altace] Allergy (Verified 03/06/18 17:35) triprolidine HCl [From Actifed] Allergy (Verified 03/06/18 17:35) lisinopril [Lisinopril] Adverse Reaction (Intermediate, Verified 03/06/18 17:35) Past Medical History - Social History Chew tobacco use (# tins/day): No Frequency of alcohol use: None Drug Abuse: None - Past Medical History Cardiac Medical History: Reports: Hx Hypercholesterolemia, Hx Hypertension Denies: Hx Coronary Artery Disease, Hx Heart Attack Pulmonary Medical History: Reports: Hx Bronchitis, Hx Pneumonia Denies: Hx Asthma, Hx COPD Neurological Medical History: Denies: Hx Cerebrovascular Accident, Hx Migraine, Hx Seizures Endocrine Medical History: Reports: Hx Diabetes Mellitus Type 2. Denies: Hx Hyperthyroidism, Hx Hypothyroidism Renal/ Medical History: Reports: Hx Renal Insufficiency. Denies: Hx Peritoneal Dialysis GI Medical History: Reports: Hx Gastritis, Hx Gastroesophageal Reflux Disease, Hx Irritable Bowel. Denies: Hx Cirrhosis, Hx Hepatitis Musculoskeltal Medical History: Reports Hx Arthritis, Reports Hx Fibromyalgia, Reports Hx Musculoskeletal Deformity Skin Medical History: Denies Hx Eczema, Denies Hx Psoriasis Psychiatric Medical History: Reports: Hx Anxiety, Hx Depression Infectious Medical History: Denies: Hx Hepatitis Past Surgical History: Reports: Hx Appendectomy, Hx Section, Hx Cholecystectomy, Hx Orthopedic Surgery - L foot, Hx Tonsillectomy - addenoids, Hx Tubal Ligation. Denies: Hx Hysterectomy, Hx Pacemaker - Immunizations Immunizations up to date: Yes Hx Diphtheria, Pertussis, Tetanus Vaccination: Yes Physical Exam - Vital signs Vitals: Temp Pulse Resp BP Pulse Ox 97.9 F 77 18 146/85 H 96 11/21/18 10:53 11/21/18 10:53 11/21/18 10:53 11/21/18 10:53 11/21/18 10:53 Interpretation: Hypertensive - Abdominal Inspection: Normal Distension: No distension Bowel sounds: Hyperactive Tenderness: Nontender Organomegaly: No organomegaly Course - Re-evaluation Re-evalutation: 11/21/18 11:37 I have greeted and performed a rapid initial assessment of this patient. A comprehensive ED assessment and evaluation of the patient, analysis of test results and completion of the medical decision making process will be conducted by additional ED providers. - Vital Signs Vital signs: Temp Pulse Resp BP Pulse Ox 97.9 F 77 18 146/85 H 96 11/21/18 10:53 11/21/18 10:53 11/21/18 10:53 11/21/18 10:53 11/21/18 10:53 Doctor's Discharge - Discharge Referrals: NATA ROOT MD [Primary Care Provider] - Follow up as needed
[2018-11-21 12:53] LABS: ABSOLUTE MONOCYTES (AUTO) 0.3 10^3/uL (0.1-1.4); ABSOLUTE NEUT (AUTO) 6.3 10^3/uL (1.7-8.2); BASOPHILS % (AUTO) 0.4 % (0-2); EOSINOPHILS % (AUTO) 0.2 % (0-6); HEMATOCRIT 42.6 % (36.0-47.0); HEMOGLOBIN 14.3 g/dL (12.0-15.5); LYMPHOCYTES % (AUTO) 13.4 % (13-45); MEAN CORPUSCULAR HEMOGLOBIN 30.9 pg (27.0-33.4); MEAN CORPUSCULAR HGB CONC 33.5 g/dL (32.0-36.0); MEAN CORPUSCULAR VOLUME 92 fl (80-97); MONOCYTES % (AUTO) 4.2 % (3-13); PLATELET COUNT 219 10^3/uL (150-450); RED BLOOD COUNT 4.62 10^6/uL (3.72-5.28); RED CELL DISTRIBUTION WIDTH 13.7 % (11.5-14.0); SEGMENTED NEUTROPHILS % (AUTO) 81.8 % (42-78); TOTAL CELLS COUNTED % (AUTO) 100 %; WHITE BLOOD COUNT 7.8 10^3/uL (4.0-10.5)
[2018-11-21 12:55] LABS: VENOUS BLOOD BASE EXCESS 3.2 mmol/L; VENOUS BLOOD PCO2 48.5 mmHg (35-63); VENOUS BLOOD PH 7.4 (7.30-7.42)
[2018-11-21 12:58] LABS: APPEARANCE,URINE CLEAR; BILIRUBIN,URINE NEGATIVE (NEGATIVE); COLOR,URINE STRAW; GLUCOSE, URINE >=500 mg/dL (NEGATIVE); KETONES,URINE 80 mg/dL (NEGATIVE); LEUKOCYTE ESTERASE,URINE NEGATIVE (NEGATIVE); NITRITE,URINE NEGATIVE (NEGATIVE); PROTEIN,URINE NEGATIVE (NEGATIVE); URINE SPECIFIC GRAVITY 1.033; UROBILINOGEN,URINE NEGATIVE mg/dL (<2.0)
[2018-11-21 13:09] LABS: ALANINE AMINOTRANSFERASE 21 U/L (9-52); ALBUMIN 4.6 g/dL (3.5-5.0); ALKALINE PHOSPHATASE 106 U/L (38-126); ANION GAP 13 (5-19); ASPARTATE AMINO TRANSFERASE 30 U/L (14-36); BILIRUBIN,DIRECT 0.3 mg/dL (0.0-0.4); BILIRUBIN,TOTAL 0.9 mg/dL (0.2-1.3); BLOOD UREA NITROGEN 17 mg/dL (7-20); CALCIUM 9.4 mg/dL (8.4-10.2); CARBON DIOXIDE 29 mmol/L (22-30); CHLORIDE 92 mmol/L (98-107); POTASSIUM 3.8 mmol/L (3.6-5.0); SODIUM 133.6 mmol/L (137-145); TOTAL PROTEIN 7.2 g/dL (6.3-8.2)
[2018-11-21 13:17] LABS: GLUCOSE 596 mg/dL (75-110)
[2018-11-21] MEDS ORDERED: ONDANSETRON HCL INJ/PF 4 MG/2 ML SDV IV ONE (13:39)
[2018-11-21] MEDS ORDERED: RINGERS SOLUTION,LACTATED 1,000 ML IV ONE (13:40)
[2018-11-21] MEDS ORDERED: MORPHINE SULFATE 10 MG/ML INJ IV ONE ×2 (13:42→15:33)
--- NOTE | 2018-11-21 13:43 | ER Document Report ---
ED General - General Chief Complaint: Abdominal Pain Stated Complaint: ABDOMINAL PAIN Time Seen by Provider: 11/21/18 11:19 Primary Care Provider: NATA ROOT MD [Primary Care Provider] - Follow up as needed Mode of Arrival: Ambulatory Information source: Patient, Relative, [facility] Records Notes: Patient is a 50-year-old female history of gastritis and diabetes who presents to the emergency department the chief complaint of epigastric pain. Patient states that she was seen by her primary care physician Dr. Root on Saturday and was told that her abdominal pain was due to her stopping her Klonopin. Patient states that she came to the emergency department due for continued pain on Saturday when she was diagnosed with ketosis and acid reflux. Patient was told to start Mylanta and Prilosec. Patient states she did start those yesterday but continues to have the epigastric pain. Patient is tearful in triage stating that she cannot live like this as she has been under a lot of stress, has to take care of her grandchildren and has not been able to work due to the epigastric pain. Patient states she has had a significant GI history to include hiatal hernia, gastritis, duodenitis, esophagitis, colitis. Patient states her last bowel movement was 2 days ago and was normal. Patient denies blood or dark tarry stools. Patient states that she has had nausea without vomiting. Patient has had her appendix bladder removed. Patient states is been years since her last EGD. Patient also states that her sugars have been running high at home. Patient states that her monitor reads greater than 500 despite her taking 3 doses of NovoLog yesterday. Patient states she is also takes pills for her diabetes. TRAVEL OUTSIDE OF THE [place] IN LAST 30 DAYS: No - HPI Onset: Other Onset/Duration: Gradual, Persistent Quality of pain: Sharp Severity: Moderate Pain Level: 2 Associated symptoms: Nausea. denies: Chest pain, Diarrhea, Fever, Vomiting Exacerbated by: Denies Relieved by: Denies Similar symptoms previously: Yes Recently seen / treated by doctor: Yes - Related Data Allergies/Adverse Reactions: pseudoephedrine HCl [From Actifed] Allergy (Verified 03/06/18 17:35) ramipril [From Altace] Allergy (Verified 03/06/18 17:35) triprolidine HCl [From Actifed] Allergy (Verified 03/06/18 17:35) lisinopril [Lisinopril] Adverse Reaction (Intermediate, Verified 03/06/18 17:35) Past Medical History - General Information source: Patient - Social History Smoking Status: Never Smoker Chew tobacco use (# tins/day): No Frequency of alcohol use: None Drug Abuse: None Lives with: Family Family History: CAD, DM, Hypertension, Malignancy - Colon cancer and leukemia, Other - COPD Patient has suicidal ideation: No Patient has homicidal ideation: No - Past Medical History Cardiac Medical History: Reports: Hx Hypercholesterolemia, Hx Hypertension Denies: Hx Coronary Artery Disease, Hx Heart Attack Pulmonary Medical History: Reports: Hx Bronchitis, Hx Pneumonia Denies: Hx Asthma, Hx COPD Neurological Medical History: Denies: Hx Cerebrovascular Accident, Hx Migraine, Hx Seizures Endocrine Medical History: Reports: Hx Diabetes Mellitus Type 2. Denies: Hx Hyperthyroidism, Hx Hypothyroidism Renal/ Medical History: Reports: Hx Renal Insufficiency. Denies: Hx Peritoneal Dialysis GI Medical History: Reports: Hx Gastritis, Hx Gastroesophageal Reflux Disease, Hx Irritable Bowel. Denies: Hx Cirrhosis, Hx Hepatitis Musculoskeletal Medical History: Reports Hx Arthritis, Reports Hx Fibromyalgia, Reports Hx Musculoskeletal Deformity Skin Medical History: Denies Hx Eczema, Denies Hx Psoriasis Psychiatric Medical History: Reports: Hx Anxiety, Hx Depression Infectious Medical History: Denies: Hx Hepatitis Past Surgical History: Reports: Hx Appendectomy, Hx Section, Hx Cholecystectomy, Hx Orthopedic Surgery - L foot, Hx Tonsillectomy - addenoids, Hx Tubal Ligation. Denies: Hx Hysterectomy, Hx Pacemaker - Immunizations Immunizations up to date: Yes Hx Diphtheria, Pertussis, Tetanus Vaccination: Yes Hx Pneumococcal Vaccination: 06/03/00 Review of Systems - Review of Systems Notes: REVIEW OF SYSTEMS: CONSTITUTIONAL : Denies fever, chills, or sweats. Denies recent illness. Denies weight loss, recent hospitalizations. EENT: Denies visual changes, eye pain. Denies sore throat, oral lesions, difficulty swallowing. CARDIOVASCULAR: Denies chest pain. Denies palpitations. Denies lower extremity edema. RESPIRATORY: Denies cough. Denies shortness of breath, wheezing. GASTROINTESTINAL: Denies abdominal distention. Denies vomiting, or diarrhea. Denies blood in vomitus, stools, or per rectum. Denies black, tarry stools. Denies constipation. GENITOURINARY: Denies difficulty urinating, painful urination, frequency, blood in urine, or vaginal discharge. MUSCULOSKELETAL: Denies back or neck pain or stiffness. Denies joint pain or swelling. SKIN: Denies rash, lesions or sores. HEMATOLOGIC : Denies easy bruising or bleeding. LYMPHATIC: Denies swollen glands. NEUROLOGICAL: Denies confusion or altered mental status. Denies loss of consciousness. Denies dizziness or lightheadedness. Denies headache. Denies weakness or paralysis. Denies problems difficulty with ambulation, slurred speech. Denies sensory loss, numbness, or tingling. Denies seizures. PSYCHIATRIC: Denies anxiety or stress. Denies depression, suicidal ideation, or homicidal ideation. Denies visual or auditory hallucinations. Physical Exam - Vital signs Vitals: Temp Pulse Resp BP Pulse Ox 97.9 F 77 18 146/85 H 96 11/21/18 10:53 11/21/18 10:53 11/21/18 10:53 11/21/18 10:53 11/21/18 10:53 - Notes Notes: PHYSICAL EXAMINATION: GENERAL: Well-appearing, well-nourished and in no acute distress. HEAD: Atraumatic, normocephalic. EYES: Pupils equal round and reactive to light, extraocular movements intact, conjunctiva are normal. ENT: Nares patent, oropharynx clear without exudates. Moist mucous membranes. NECK: Normal range of motion, supple without lymphadenopathy LUNGS: Breath sounds clear to auscultation bilaterally and equal. No wheezes rales or rhonchi. HEART: Regular rate and rhythm without murmurs ABDOMEN: Epigastric abdominal tenderness with palpation. No guarding, no rebound. No masses appreciated. Female : deferred Musculoskeletal: Normal range of motion, no pitting or edema. No cyanosis. NEUROLOGICAL: Cranial nerves grossly intact. Normal speech, normal gait. Normal sensory, motor exams PSYCH: Normal mood, normal affect. SKIN: Warm, Dry, normal turgor, no rashes or lesions noted. Course - Re-evaluation Re-evalutation: 11/21/18 17:35 Laboratory 11/21/18 11/21/18 11/21/18 12:34 12:34 12:34 WBC 7.8 RBC 4.62 Hgb 14.3 Hct 42.6 MCV 92 MCH 30.9 MCHC 33.5 RDW 13.7 Plt Count 219 Seg Neutrophils % 81.8 H Lymphocytes % 13.4 Monocytes % 4.2 Eosinophils % 0.2 Basophils % 0.4 Absolute Neutrophils 6.3 Absolute Lymphocytes 1.0 Absolute Monocytes 0.3 Absolute Eosinophils 0.0 Absolute Basophils 0.0 VBG pH VBG pCO2 VBG HCO3 VBG Base Excess Sodium 133.6 L Potassium 3.8 Chloride 92 L Carbon Dioxide 29 Anion Gap 13 BUN 17 Creatinine 0.93 Est GFR ( Amer) > 60 Est GFR (Non-Af Amer) > 60 Glucose 596 H* Calcium 9.4 Total Bilirubin 0.9 Direct Bilirubin 0.3 Neonat Total Bilirubin Not Reportable Neonat Direct Bilirubin Not Reportable Neonat Indirect Bili Not Reportable AST 30 ALT 21 Alkaline Phosphatase 106 Total Protein 7.2 Albumin 4.6 Urine Color STRAW Urine Appearance CLEAR Urine pH 6.0 Ur Specific [place] 1.033 Urine Protein NEGATIVE Urine Glucose (UA) >=500 H Urine Ketones 80 H Urine Blood NEGATIVE Urine Nitrite NEGATIVE Urine Bilirubin NEGATIVE Urine Urobilinogen NEGATIVE Ur Leukocyte Esterase NEGATIVE Urine WBC (Auto) 6 Urine RBC (Auto) 1 Urine Bacteria (Auto) TRACE Squamous Epi Cells Auto 2 Urine Mucus (Auto) RARE Urine Ascorbic Acid NEGATIVE 11/21/18 12:34 WBC RBC Hgb Hct MCV MCH MCHC RDW Plt Count Seg Neutrophils % Lymphocytes % Monocytes % Eosinophils % Basophils % Absolute Neutrophils Absolute Lymphocytes Absolute Monocytes Absolute Eosinophils Absolute Basophils VBG pH 7.40 VBG pCO2 48.5 VBG HCO3 29.0 VBG Base Excess 3.2 Sodium Potassium Chloride Carbon Dioxide Anion Gap BUN Creatinine Est GFR ( Amer) Est GFR (Non-Af Amer) Glucose Calcium Total Bilirubin Direct Bilirubin Neonat Total Bilirubin Neonat Direct Bilirubin Neonat Indirect Bili AST ALT Alkaline Phosphatase Total Protein Albumin Urine Color Urine Appearance Urine pH Ur Specific Merino Urine Protein Urine Glucose (UA) Urine Ketones Urine Blood Urine Nitrite Urine Bilirubin Urine Urobilinogen Ur Leukocyte Esterase Urine WBC (Auto) Urine RBC (Auto) Urine Bacteria (Auto) Squamous Epi Cells Auto Urine Mucus (Auto) Urine Ascorbic Acid Abdomen Ultrasound 11/21/18 13:43 IMPRESSION: POST CHOLECYSTECTOMY. OTHERWISE, RIGHT UPPER QUADRANT ULTRASOUND. Abdomen/Pelvis CT 11/21/18 13:43 IMPRESSION: 1. Mild thickening of the urinary bladder. Correlate with urinalysis. 2. No other acute CT findings to explain epigastric abdominal pain. Status post cholecystectomy and appendectomy. Temp Pulse Resp BP Pulse Ox 97.9 F 77 18 146/85 H 96 11/21/18 10:53 11/21/18 10:53 11/21/18 10:53 11/21/18 10:53 11/21/18 10:53 Presentation of abdominal pain and hyperglycemia. There is no evidence of HHS or diabetic ketoacidosis on laboratories or based on clinical history. Patient's vitals are within normal limits. Abdominal pain is epigastric and chronic. Treatment with IV fluids given here in the emergency department with appropriate response of the blood sugar. Patient's nausea and abdominal pain did subside after receiving a GI cocktail, morphine and Zofran. Patient does have primary care follow-up. Patient was instructed to continue taking their diabetes medication and advised they will likely need to increase dietary modification and may also need medication changes. Indications to return to emergency department as well as the importance of close outpatient follow-up were discussed at length. Patient verbalized understanding of the need for close follow-up and indications to return to the ED. Patient was evaluated and treated as appropriate for the patient's presenting symptoms and complaint, with consideration of any critical or life threatening conditions that may be associated with their obtained history and exam as noted above. All results were discussed with patient. Patient provided the opportunity to ask questions, and express concerns. Patient was educated on treatments based on their presumed diagnosis as noted above. At this time we will discharge the patient with return precautions and follow-up recommendations. Verbal discharge instructions given a the bedside. Medication warnings reviewed. Patient is in agreement with this plan and has verbalized understanding of return precautions. After careful consideration I feel that that patient can be safely discharged from the emergency department, they were advised to followup with a primary care physician in 2-3 days. Dictation on this chart was performed using voice recognition software and may result in unintended grammatical, spelling, syntax or errors. - Vital Signs Vital signs: Temp Pulse Resp BP Pulse Ox 97.9 F 77 18 146/85 H 96 11/21/18 10:53 11/21/18 10:53 11/21/18 10:53 11/21/18 10:53 11/21/18 10:53 - Laboratory Result Diagrams: 11/21/18 12:34 11/21/18 12:34 Laboratory results interpreted by me: 11/21/18 11/21/18 11/21/18 12:34 12:34 12:34 Seg Neutrophils % 81.8 H Sodium 133.6 L Chloride 92 L Glucose 596 H* Urine Glucose (UA) >=500 H Urine Ketones 80 H - Diagnostic Test Radiology reviewed: Image reviewed, Reports reviewed Discharge - Discharge Clinical Impression: Hyperglycemia due to type 1 diabetes mellitus, Nausea Abdominal pain Qualifiers: Abdominal location: epigastric Qualified Code(s): R10.13 - Epigastric pain HTN (hypertension) Qualifiers: Hypertension type: unspecified Qualified Code(s): I10 - Essential (primary) h ypertension Condition: Good Disposition: HOME, SELF-CARE Instructions: Abdominal Pain ([facility]), Evaluation of Upper Abdominal Pain ([facility]), Nausea or Vomiting, Nonspecific ([facility]) Additional Instructions: Follow up with your [id number] hours for further care or return to the ED IMMEDIATELY if symptoms worsen or you have any concerns. If you cannot afford to follow up with your primary care physician a list of low cost clinics have been provided at the end of your discharge papers as well. Most prescribed medications have multiple side effects. The safest thing to do is when filling your prescription speak to your pharmacist regarding possible interactions with your normal home medications and over the counter medications such as Ibuprofen, Tylenol, Benadryl. If you experience any symptoms that cause you discomfort or concern you should discontinue the medication immediately and return to the emergency room or call your primary care physician. Recommendations: It is recommended to followup with a primary care doctor within the next 2 days. If you do not have a primary care doctor or you are unable to get an apointment during that time, I left the number for some internal medicine physicians that are affiliated with this [facility]. Dr. Taurus Min [address], [place] [address] [phone] Dr Mcneill Address: [address] [place] [address] [place] [address] Dr Root Address: [address] [place] [address] [place] [address] Prescriptions: Hydrocodone/Acetaminophen [[place] 5-325 mg Tablet] 1 tab PO Q6H #8 tablet Ondansetron [Zofran Odt 4 mg Tablet] 1 - 2 tab PO Q4H PRN #15 tab.rapdis PRN Reason: For Nausea/Vomiting Referrals: NATA ROOT MD [Primary Care Provider] - Follow up as needed
[2018-11-21] MEDS: NORMAL SALINE 1000 ML 1,000 ML IV PRN ×2 (14:05→15:58)
--- NOTE | 2018-11-21 15:05 | RADIOLOGY REPORT (SQ) ---
EXAM DESCRIPTION: CT ABD/PELVIS WITH IV ONLY COMPLETED DATE/TIME: 11/21/2018 2:35 pm REASON FOR STUDY: Epigastric abdominal pain COMPARISON: None. TECHNIQUE: CT scan of the abdomen and pelvis performed using helical scanning technique with dynamic intravenous contrast injection. No oral contrast. Images reviewed with lung, soft tissue, and bone windows. Reconstructed coronal and sagittal MPR images reviewed. Delayed images for evaluation of the urinary system also acquired. All images stored on PACS. All CT scanners at this facility use dose modulation, iterative reconstruction, and/or weight based d osing when appropriate to reduce radiation dose to as low as reasonably achievable (ALARA). [facility]: Dose Right [facility]: CareDose [facility]: Dose Right [facility]: Teradose 4D [facility]: [employer] CONTRAST TYPE AND DOSE: contrast/concentration: Isovue 350.00 mg/ml; Total Contrast Delivered: 72.0 ml; Total Saline Delivered: 66.0 ml RENAL FUNCTION: GFR > 60. RADIATION DOSE: CT Rad equipment meets quality standard of care and radiation dose reduction techniq ues were employed. CTDIvol: 6.3 - 8.3 mGy. DLP: 739 mGy-cm.. LIMITATIONS: None. FINDINGS: LOWER CHEST: No significant findings. No nodules or infiltrates. LIVER: Normal size. No masses. No dilated ducts. SPLEEN: Normal size. No focal lesions. PANCREAS: No masses. No significant calcifications. No adjacent inflammation or peripancreatic fluid collections. Pancreatic duct not dilated. GALLBLADDER: Surgically absent. ADRENAL GLANDS: No significant masses or asymmetry. RIGHT KIDNEY AND URETER: No solid masses. No significant calcifications. No hydronephrosis or hyd roureter. LEFT KIDNEY AND URETER: No solid masses. No significant calcifications. No hydronephrosis or hydr oureter. AORTA AND VESSELS: No aneurysm. No dissection. Renal arteries, SMA, celiac without stenosis. Mixed a therosclerosis. RETROPERITONEUM: No retroperitoneal adenopathy, hemorrhage or masses. BOWEL AND PERITONEAL CAVITY: No masses or inflammatory changes. No free fluid or peritoneal masses. APPENDIX: Surgically absent. PELVIS: No mass. No free fluid. Mild thickening of the urinary bladder. ABDOMINAL WALL: No masses. No hernias. BONES: No significant or acute findings. OTHER: No other significant finding. IMPRESSION: 1. Mild thickening of the urinary bladder. Correlate with urinalysis. 2. No other acute CT findings to explain epigastric abdominal pain. Status post cholecystectomy and appendectomy. TECHNICAL DOCUMENTATION: JOB ID: [id number] Quality ID # [id number]: Final reports with documentation of one or more dose reduction techniques (e.g., Au tomated exposure control, adjustment of the mA and/or kV according to patient size, use of iterative reconstruction technique) 2010 [employer]- All Rights Reserved Reading location - IP/workstation name: [email or web address]
--- NOTE | 2018-11-21 15:25 | RADIOLOGY REPORT (SQ) ---
EXAM DESCRIPTION: U/S ABDOMEN LIMITED W/O DOP COMPLETED DATE/TIME: 11/21/2018 3:12 pm REASON FOR STUDY: Epigastric abdominal pain COMPARISON: CT abdomen pelvis 06/01/2018, 11/21/2018 KUB 11/19/2018 TECHNIQUE: Dynamic and static grayscale images acquired of the abdomen and recorded on PACS. Additio nal selected color Doppler and spectral images recorded. LIMITATIONS: None. FINDINGS: PANCREAS: Midline pancreas unremarkable LIVER: No masses. Echotexture normal. LIVER VASCULATURE: Normal directional flow of the main portal vein and hepatic veins. GALLBLADDER: Surgically absent ULTRASOUND-DETECTED HOFFMANN'S SIGN: Not applicable INTRAHEPATIC DUCTS AND COMMON DUCT: CBD and intrahepatic ducts normal caliber. No filling defects. INFERIOR VENA CAVA: Normal flow. AORTA: No aneurysm. RIGHT KIDNEY: Normal size. Normal echogenicity. No solid or suspicious masses. No hydronephrosis. No calcifications. PERITONEAL AND RIGHT PLEURAL SPACE: No ascites or effusions. OTHER: No other significant findings. IMPRESSION: POST CHOLECYSTECTOMY. OTHERWISE, RIGHT UPPER QUADRANT ULTRASOUND. TECHNICAL DOCUMENTATION: JOB ID: [id number]- All Rights Reserved Reading location - IP/workstation name: [email or web address]
[2018-11-21] MEDS ORDERED: FAMOTIDINE INJ/PF 20 MG/2 ML SDV IV ONE (15:33)
[2018-11-21 17:41] VITALS: BP 157/93
== END 2018-11-21 17:41 | disposition home or self-care (01) ==
LOC: ER 10:32
DX: R10.13 Epigastric pain (principal); G89.29 Other chronic pain; R10.816 Epigastric abdominal tenderness; E10.65 Type 1 diabetes mellitus with hyperglycemia; Z79.84 Long term (current) use of oral hypoglycemic drugs; K21.9 Gastro-esophageal reflux disease without esophagitis; I10 Essential (primary) hypertension; R11.0 Nausea; Z87.19 Personal history of other diseases of the digestive system; Z90.49 Acquired absence of other specified parts of digestive tract; Z88.8 Allergy status to other drugs, medicaments and biological substances
CPT/HCPCS: 96376; 99284; 96361; 96374; 96375; 36415; 82962; 85025; 80053; 81001; 82803; 76705; 74177; J3490 ×3; J2270; J2405; J7030; S0028

== ENCOUNTER 2018-11-24 14:54 | Observation (INO) | payer MEDICAID ==
[2018-11-24 15:49] LABS: ABSOLUTE LYMPHOCYTES (AUTO) 0.8 10^3/uL (0.5-4.7); ABSOLUTE MONOCYTES (AUTO) 0.4 10^3/uL (0.1-1.4); ABSOLUTE NEUT (AUTO) 4.7 10^3/uL (1.7-8.2); BASOPHILS % (AUTO) 0.7 % (0-2); EOSINOPHILS % (AUTO) 0.2 % (0-6); HEMOGLOBIN 14.3 g/dL (12.0-15.5); LYMPHOCYTES % (AUTO) 14.2 % (13-45); MEAN CORPUSCULAR HEMOGLOBIN 30.8 pg (27.0-33.4); MEAN CORPUSCULAR HGB CONC 34.1 g/dL (32.0-36.0); MEAN CORPUSCULAR VOLUME 90 fl (80-97); PLATELET COUNT 194 10^3/uL (150-450); RED BLOOD COUNT 4.65 10^6/uL (3.72-5.28); RED CELL DISTRIBUTION WIDTH 13.6 % (11.5-14.0); SEGMENTED NEUTROPHILS % (AUTO) 78.9 % (42-78); TOTAL CELLS COUNTED % (AUTO) 100 %
[2018-11-24 16:08] LABS: ALANINE AMINOTRANSFERASE 28 U/L (9-52); ALBUMIN 4.2 g/dL (3.5-5.0); ALKALINE PHOSPHATASE 104 U/L (38-126); ANION GAP 14 (5-19); ASPARTATE AMINO TRANSFERASE 21 U/L (14-36); BILIRUBIN,DIRECT 0.3 mg/dL (0.0-0.4); BILIRUBIN,TOTAL 0.9 mg/dL (0.2-1.3); BLOOD UREA NITROGEN 18 mg/dL (7-20); CALCIUM 9.3 mg/dL (8.4-10.2); CARBON DIOXIDE 27 mmol/L (22-30); CHLORIDE 88 mmol/L (98-107); CREATINE KINASE 57 U/L (30-135); LIPASE 155.6 U/L (23-300); POTASSIUM 3.8 mmol/L (3.6-5.0); TOTAL PROTEIN 6.8 g/dL (6.3-8.2)
[2018-11-24] MEDS: HYDROMORPHONE HCL INJ/PF 2 MG/ML AMPULE IV PRN ×2 (16:09→21:50)
[2018-11-24] MEDS: NORMAL SALINE 1000 ML 1,000 ML IV PRN (16:10)
[2018-11-24 16:15] LABS: GLUCOSE 580 mg/dL (75-110)
[2018-11-24 16:20] LABS: CREATINE KINASE MB 1.17 ng/mL (<4.55)
[2018-11-24 16:26] LABS: TROPONIN I < 0.012 ng/mL
[2018-11-24] MEDS ORDERED: DEXTROSE 40% GEL 15 GM TUBE PO PRN (17:00)
[2018-11-24] MEDS ORDERED: DEXTROSE 40% GEL 15 GM TUBE X 2 PO PRN (17:00)
[2018-11-24] MEDS ORDERED: GLUCAGON,HUMAN RECOMB 1 MG INJ IM PRN (17:00)
[2018-11-24] MEDS ORDERED: DEXTROSE 50%-WATER SYRINGE 25 GM/50 ML DOSE IV PRN (17:00)
[2018-11-24] MEDS ORDERED: DEXTROSE 50%-WATER SYRINGE 12.5 GM/25 ML DOSE IV PRN (17:00)
[2018-11-24] MEDS: INSULIN LISPRO 100 UNIT/ML 3 ML VIAL SUBCUT SCH ×2 (17:16→21:48)
[2018-11-24] MEDS: PANTOPRAZOLE SODIUM 40 MG VIAL IV SCH (17:16)
[2018-11-24] MEDS ORDERED: (PENDING PHARMACY ID) (Dapagliflozin Propanediol [Farxiga] 10 MG) PO SCH (20:15)
--- NOTE | 2018-11-24 20:31 | PDOC H&P ---
History of Present Illness Admission Date/PCP: 11/24/18 14:54 NATA ROOT MD History of Present Illness: ZEYAD NEGRO is a 58 year old female, She has diabetes mellitus type 1 she came to the office today for evaluation of epigastric pain, she said the pain is severe, she was in the emergency room last week twice for the same problem in the emergency room she was evaluated she also had a CAT scan of the abdomen and pelvis with contrast, I reviewed the CAT scan results it was essentially negative there was no acute pathology demonstrated on the CAT scan. She has no gallbladder, she has no appendix, in the emergency room she was also found to have no pancreatitis the pancreas on the CAT scan was normal, the lipase was normal but she had uncontrolled diabetes mellitus, because she was in so much pain and the fact that she was requesting to be admitted because she cannot keep any food down she was brought in for observation. She may need to have upper endoscopy done, the abdominal pain she is experiencing could also be from the fact that the diabetes is poorly controlled, she has type 1 diabetes she is new to my practice, she does not know how to count calories, she does not know how to correct hyperglycemic states, she was diagnosed previously erroneously as t ype 2 diabetes and she has been using oral hypoglycemic medication for the control of diabetes, she has type 1 diabetes she need to know how to count calories, how to correct diabetes when he is not at a target range. Past Medical History Cardiac Medical History: Reports: Hyperlipidema, Hypertension Pulmonary Medical History: Reports: Bronchitis, Pneumonia Endocrine Medical History: Reports: Diabetes Mellitus Type 1 GI Medical History: Reports: Gastroesophageal Reflux Disease Musculoskeltal Medical History: Reports: Arthritis, Fibromyalgia Psychiatric Medical History: Reports: Depression Past Surgical History Past Surgical History: Reports: Appendectomy, Section, Cholecystectomy, Orthopedic Surgery - L foot, Tonsillectomy - addenoids, Tubal Ligation Social History Smoking Status: Former Smoker Number of Years Smokin Frequency of Alcohol Use: None Hx Recreational Drug Use: No Drugs: None Hx Prescription Drug Abuse: No Family History Family History: CAD, DM, Hypertension, Malignancy - Colon cancer and leukemia, Other - COPD Parental Family History Reviewed: Yes Children Family History Reviewed: Yes Sibling(s) Family History Reviewed.: Yes Medication/Allergy Home Medications: Cyclobenzaprine HCl [Flexeril 10 mg Tablet] 10 mg PO TIDP PRN 06/02/18 Sertraline HCl [Zoloft 50 mg Tablet] 50 mg PO DAILY 06/02/18 Hydrochlorothiazide [Hydrodiuril 25 mg Tablet] 25 mg PO QAM tablet 06/03/18 Buspirone HCl [Buspar 10 mg Tablet] 10 mg PO BID 11/24/18 Dapagliflozin Propanediol [Farxiga] 10 mg PO DAILY 11/24/18 Insulin Aspart [Novolog Insulin (Aspart) 100 unit/mL] 0 units SQ .SLIDING SCALE 11/24/18 Insulin Glargine,Hum.rec.anlog [Lantus Insulin 100 Unit/mL Insulin Pen] 16 unit SUBCUT QAM 11/24/18 Metoprolol Succinate [Toprol Xl 50 mg Tab.sr] 50 mg PO DAILY 11/24/18 Allergies/Adverse Reactions: pseudoephedrine HCl [From Actifed] Allergy (Verified 03/06/18 17:35) ramipril [From Altace] Allergy (Verified 03/06/18 17:35) triprolidine HCl [From Actifed] Allergy (Verified 03/06/18 17:35) lisinopril [Lisinopril] Adverse Reaction (Intermediate, Verified 03/06/18 17:35) Review of Systems Constitutional: ABSENT: chills, fever(s), headache(s), weight gain, weight loss Eyes: ABSENT: visual disturbances Ears: ABSENT: hearing changes Cardiovascular: ABSENT: chest pain, dyspnea on exertion, edema, orthropnea, palpitations Respiratory: ABSENT: cough, hemoptysis Gastrointestinal: PRESENT: abdominal pain. ABSENT: constipation, diarrhea, hematemesis, hematochezia, nausea, vomiting Genitourinary: ABSENT: dysuria, hematuria Musculoskeletal: ABSENT: joint swelling Integumentary: ABSENT: rash, wounds Neurological: ABSENT: abnormal gait, abnormal speech, confusion, dizziness, focal weakness, syncope Psychiatric: ABSENT: anxiety, depression, homidical ideation, suicidal ideation Endocrine: ABSENT: cold intolerance, heat intolerance, menstrual abnormalities, polydipsia, polyuria Hematologic/Lymphatic: ABSENT: easy bleeding, easy bruising, lymphadenopathy Physical Exam Vital Signs: Temp Pulse Resp BP Pulse Ox 98.1 F 72 16 129/76 H 98 11/24/18 19:19 11/24/18 19:19 11/24/18 19:19 11/24/18 19:19 11/24/18 19:19 Intake & Output 11/23/18 11/24/18 11/25/18 06:59 06:59 06:59 Intake Total 500 Balance 500 Weight 63.3 kg General appearance: PRESENT: no acute distress, well-developed, well-nourished Head exam: PRESENT: atraumatic, normocephalic Eye exam: PRESENT: conjunctiva pink, EOMI, PERRLA Ear exam: PRESENT: normal external ear exam Mouth exam: PRESENT: moist, tongue midline Neck exam: PRESENT: full ROM Respiratory exam: PRESENT: clear to auscultation iglesia Cardiovascular exam: PRESENT: RRR, +S1, +S2 Pulses: PRESENT: normal dorsalis pedis pul, +2 pedal pulses bilateral. ABSENT: normal carotid pulses, normal radial pulses, normal femoral pulses, +1 pedal pulses bilateral, other Vascular exam: PRESENT: normal capillary refill GI/Abdominal exam: PRESENT: normal bowel sounds, soft, tenderness Rectal exam: PRESENT: deferred Neurological exam: PRESENT: alert, awake, oriented to person, oriented to place, oriented to time, oriented to situation, CN II-XII grossly intact Psychiatric exam: PRESENT: appropriate affect, normal mood Skin exam: PRESENT: dry, intact, warm Results Laboratory Results: 11/24/18 15:33 11/24/18 15:33 11/24/18 11/24/18 15:33 15:33 WBC 6.0 RBC 4.65 Hgb 14.3 Hct 42.0 MCV 90 MCH 30.8 MCHC 34.1 RDW 13.6 Plt Count 194 Seg Neutrophils % 78.9 H Lymphocytes % 14.2 Monocytes % 6.0 Eosinophils % 0.2 Basophils % 0.7 Absolute Neutrophils 4.7 Absolute Lymphocytes 0.8 Absolute Monocytes 0.4 Absolute Eosinophils 0.0 Absolute Basophils 0.0 Sodium 129.0 L Potassium 3.8 Chloride 88 L Carbon Dioxide 27 Anion Gap 14 BUN 18 Creatinine 1.09 Est GFR ( Amer) > 60 Est GFR (Non-Af Amer) 52 L Glucose 580 H* Calcium 9.3 Total Bilirubin 0.9 AST 21 ALT 28 Alkaline Phosphatase 104 Total Protein 6.8 Albumin 4.2 Lipase 155.6 11/24/18 11/24/18 15:33 15:33 Creatine Kinase 57 CK-MB (CK-2) 1.17 Troponin I < 0.012 Assessment & Plan - Diagnosis (1) Epigastric pain Is this a current diagnosis for this admission?: Yes Plan: The differential diagnosis includes peptic ulcer disease, ischemic heart disease though unlikely, start patient on IV Protonix consult surgical list for EGD, check cardiac enzymes every 8x3 (2) Uncontrolled type 1 diabetes mellitus with hyperosmolarity without coma Is this a current diagnosis for this admission?: Yes Plan: Start IV fluid normal saline, consult educator for diabetes to teach patient how to count calories, how to correct hyperglycemic state
[2018-11-24] MEDS: BUSPIRONE HCL 10 MG TABLET PO SCH (21:47)
[2018-11-24] MEDS: SERTRALINE HCL 50 MG TABLET PO SCH (21:48)
[2018-11-24] MEDS: METOPROLOL SUCCINATE 50 MG TAB.SR.24H PO SCH (21:48)
[2018-11-24] MEDS ORDERED: INSULIN LISPRO 100 UNIT/ML 3 ML VIAL SUBCUT SCH (22:00)
[2018-11-25 00:39] LABS: CREATINE KINASE MB 1.66 ng/mL (<4.55); TROPONIN I 0.016 ng/mL
[2018-11-25] MEDS ORDERED: ONDANSETRON 4 MG TAB.RAPDIS PO ONE (06:30)
--- NOTE | 2018-11-25 06:39 | PDOC CONSULTATION ---
Consultation Consult Date: 11/24/18 Provider Consulted: SURGICAL SURGICALIST Consult reason:: Epigastric abdominal pain History of Present Illness Admission Date/PCP: 11/24/18 14:54 NATA ROOT MD History of Present Illness: ZEYAD NEGRO is a 58 year old female with a 10-day history of sharp, stabbing epigastric abdominal pain. It has slowly worsened to the point where it is unbearable. Patient reports that at worst, her pain is 10 out of 10. The pain bores straight through to her back. Nothing makes her pain better. Spicy foods make it worse. Patient has a history of gastritis. She was started on Prilosec at home, but reports no improvement. Patient denies melena, hematochezia, or hematemesis. The patient is a type I diabetic. She has had trouble controlling her sugars at home. She denies a history of H. pylori infection. She takes occasional ibuprofen, but denies smoking, excessive alcohol consumption, steroid use, or excessive caffeine use. She also denies chest pain, shortness of breath, fevers, chills, blurry vision, headache, dizziness, orthostasis, rash. Past Medical History Cardiac Medical History: Reports: Hyperlipidema, Hypertension Denies: Coronary Artery Disease, Myocardial Infarction Pulmonary Medical History: Reports: Bronchitis, Pneumonia Denies: Asthma, Chronic Obstructive Pulmonary Disease (COPD) Neurological Medical History: Denies: Migraine, Seizures Endocrine Medical History: Reports: Diabetes Mellitus Type 1, Diabetes Mellitus Type 2 Denies: Hyperthyroidism, Hypothyroidism GI Medical History: Reports: Gastroesophageal Reflux Disease Denies: Cirrhosis, Hepatitis Musculoskeltal Medical History: Reports: Arthritis, Fibromyalgia Skin Medical History: Denies: Eczema, Psoriasis Psychiatric Medical History: Reports: Depression Hematology: Denies: Anemia, Bleeding Tendencies Past Surgical History Past Surgical History: Reports: Appendectomy, Section, Cholecystectomy, Orthopedic Surgery - L foot, Tonsillectomy - addenoids, Tubal Ligation Denies: Hysterectomy, Pacemaker Social History Smoking Status: Former Smoker Number of Years Smokin Frequency of Alcohol Use: None Hx Recreational Drug Use: No Drugs: None Hx Prescription Drug Abuse: No Family History Family History: CAD, DM, Hypertension, Malignancy - Colon cancer and leukemia, Other - COPD Parental Family History Reviewed: Yes Children Family History Reviewed: Yes Sibling(s) Family History Reviewed.: Yes Medication/Allergy Home Medications: Cyclobenzaprine HCl [Flexeril 10 mg Tablet] 10 mg PO TIDP PRN 06/02/18 Sertraline HCl [Zoloft 50 mg Tablet] 50 mg PO DAILY 06/02/18 Hydrochlorothiazide [Hydrodiuril 25 mg Tablet] 25 mg PO QAM tablet 06/03/18 Buspirone HCl [Buspar 10 mg Tablet] 10 mg PO BID 11/24/18 Dapagliflozin Propanediol [Farxiga] 10 mg PO DAILY 11/24/18 Insulin Aspart [Novolog Insulin (Aspart) 100 unit/mL] 0 units SQ .SLIDING SCALE 11/24/18 Insulin Glargine,Hum.rec.anlog [Lantus Insulin 100 Unit/mL Insulin Pen] 16 unit SUBCUT QAM 11/24/18 Metoprolol Succinate [Toprol Xl 50 mg Tab.sr] 50 mg PO DAILY 11/24/18 Allergies/Adverse Reactions: pseudoephedrine HCl [From Actifed] Allergy (Verified 03/06/18 17:35) ramipril [From Altace] Allergy (Verified 03/06/18 17:35) triprolidine HCl [From Actifed] Allergy (Verified 03/06/18 17:35) lisinopril [Lisinopril] Adverse Reaction (Intermediate, Verified 03/06/18 17:35) Review of Systems Constitutional: PRESENT: anorexia. ABSENT: chills, fatigue, fever(s), headache(s) Eyes: ABSENT: visual disturbances Ears: ABSENT: hearing changes Nose, Mouth, and Throat: ABSENT: mouth pain, sore throat Cardiovascular: ABSENT: chest pain, dyspnea on exertion Respiratory: ABSENT: cough Gastrointestinal: PRESENT: abdominal pain, bloating, nausea. ABSENT: hematemesis, hematochezia, melena Genitourinary: ABSENT: dysuria Musculoskeletal: PRESENT: back pain Integumentary: ABSENT: pruritus, rash Neurological: ABSENT: confusion, convulsions, dizziness Psychiatric: ABSENT: anxiety, depression Endocrine: ABSENT: cold intolerance, heat intolerance Physical Exam Vital Signs: Temp Pulse Resp BP Pulse Ox 98.1 F 72 16 129/76 H 98 11/24/18 19:19 11/24/18 19:19 11/24/18 19:19 11/24/18 19:19 11/24/18 19:19 Intake & Output 11/23/18 11/24/18 11/25/18 06:59 06:59 06:59 Intake Total 500 Balance 500 Weight 63.3 kg General appearance: PRESENT: no acute distress, cooperative Head exam: PRESENT: atraumatic, normocephalic Eye exam: PRESENT: EOMI, PERRLA. ABSENT: scleral icterus Mouth exam: PRESENT: moist, neck supple Teeth exam: PRESENT: poor dentation Neck exam: ABSENT: meningismus, tenderness, thyromegaly, tracheal deviation Respiratory exam: PRESENT: clear to auscultation iglesia, unlabored. ABSENT: chest wall tenderness, tachypnea Cardiovascular exam: PRESENT: RRR Pulses: PRESENT: normal radial pulses GI/Abdominal exam: PRESENT: soft. ABSENT: distended, firm, guarding Rectal exam: PRESENT: deferred Extremities exam: ABSENT: clubbing Musculoskeletal exam: ABSENT: deformity Neurological exam: PRESENT: alert, awake, oriented to person, oriented to place, oriented to time, oriented to situation, CN II-XII grossly intact Psychiatric exam: ABSENT: agitated, anxious, depressed Skin exam: ABSENT: cyanosis, erythema, jaundice Results Laboratory Results: 11/24/18 15:33 11/24/18 15:33 11/24/18 11/24/18 15:33 15:33 WBC 6.0 RBC 4.65 Hgb 14.3 Hct 42.0 MCV 90 MCH 30.8 MCHC 34.1 RDW 13.6 Plt Count 194 Seg Neutrophils % 78.9 H Lymphocytes % 14.2 Monocytes % 6.0 Eosinophils % 0.2 Basophils % 0.7 Absolute Neutrophils 4.7 Absolute Lymphocytes 0.8 Absolute Monocytes 0.4 Absolute Eosinophils 0.0 Absolute Basophils 0.0 Sodium 129.0 L Potassium 3.8 Chloride 88 L Carbon Dioxide 27 Anion Gap 14 BUN 18 Creatinine 1.09 Est GFR ( Amer) > 60 Est GFR (Non-Af Amer) 52 L Glucose 580 H* Calcium 9.3 Total Bilirubin 0.9 AST 21 ALT 28 Alkaline Phosphatase 104 Total Protein 6.8 Albumin 4.2 Lipase 155.6 11/24/18 11/24/18 15:33 15:33 Creatine Kinase 57 CK-MB (CK-2) 1.17 Troponin I < 0.012 Assessment & Plan - Diagnosis (1) Epigastric pain Is this a current diagnosis for this admission?: Yes - Plan Summary Plan Summary: This is a 58-year-old female with epigastric abdominal pain and a history of gastritis. The patient reports that her symptoms are worsened with spicy food intake. She may be experiencing gastritis and/or peptic ulcer disease. The pat iearon is currently on Protonix. I would continue this. Carafate may provide her some symptomatic relief. Patient may benefit from EGD for diagnostic purposes. Risks/benefits discussed, informed consent obtained, and all questions answered.
[2018-11-25 09:21] LABS: CREATINE KINASE MB 2.03 ng/mL (<4.55)
[2018-11-25 09:25] LABS: TROPONIN I < 0.012 ng/mL
[2018-11-25] MEDS: ONDANSETRON 4 MG TAB.RAPDIS PO PRN (12:07)
[2018-11-25] MEDS: NORMAL SALINE 1000 ML 1,000 ML IV PRN ×2 (12:09→21:13)
[2018-11-25] MEDS ORDERED: DIPHENHYDRAMINE HCL 50 MG/ML VIAL ONE (13:36)
[2018-11-25] MEDS ORDERED: ONDANSETRON HCL INJ/PF 4 MG/2 ML SDV ONE (13:36)
[2018-11-25] MEDS ORDERED: NALOXONE HCL INJ/PF 0.4 MG/1 ML SDV ONE (13:36)
[2018-11-25] MEDS ORDERED: FLUMAZENIL INJ 0.5 MG/5 ML VIAL ONE (13:36)
[2018-11-25] MEDS ORDERED: GLUCAGON,HUMAN RECOMB 1 MG INJ ONE (13:37)
[2018-11-25] MEDS ORDERED: EPINEPHRINE INJ 1 MG/10 ML DISP.SYRIN ONE (13:37)
--- NOTE | 2018-11-25 13:49 | PDOC PROGRESS REPORT ---
Subjective Progress Note for:: 11/25/18 Subjective:: Still having epigastric abdominal pain but improved on medical management in the hospital. Reason For Visit: EPIGASTRIC PAIN,UNCONTROLLED TYPE I DIABETES Physical Exam Vital Signs: Temp Pulse Resp BP Pulse Ox 97.7 F 72 16 145/85 H 100 11/25/18 03:35 11/25/18 07:00 11/25/18 03:35 11/25/18 03:35 11/25/18 03:35 Intake & Output 11/24/18 11/25/18 11/26/18 06:59 06:59 06:59 Intake Total 1500 Balance 1500 Weight 63.3 kg General appearance: PRESENT: no acute distress, cooperative Respiratory exam: PRESENT: clear to auscultation iglesia Cardiovascular exam: PRESENT: RRR GI/Abdominal exam: PRESENT: other - Soft, Nondistended, mild epigastric abdominal tenderness without peritoneal signs. Results Laboratory Results: 11/24/18 15:33 11/24/18 15:33 11/24/18 11/24/18 15:33 15:33 WBC 6.0 RBC 4.65 Hgb 14.3 Hct 42.0 MCV 90 MCH 30.8 MCHC 34.1 RDW 13.6 Plt Count 194 Seg Neutrophils % 78.9 H Lymphocytes % 14.2 Monocytes % 6.0 Eosinophils % 0.2 Basophils % 0.7 Absolute Neutrophils 4.7 Absolute Lymphocytes 0.8 Absolute Monocytes 0.4 Absolute Eosinophils 0.0 Absolute Basophils 0.0 Sodium 129.0 L Potassium 3.8 Chloride 88 L Carbon Dioxide 27 Anion Gap 14 BUN 18 Creatinine 1.09 Est GFR ( Amer) > 60 Est GFR (Non-Af Amer) 52 L Glucose 580 H* Calcium 9.3 Total Bilirubin 0.9 AST 21 ALT 28 Alkaline Phosphatase 104 Total Protein 6.8 Albumin 4.2 Lipase 155.6 11/24/18 11/24/18 11/24/18 15:33 15:33 23:35 Creatine Kinase 57 68 CK-MB (CK-2) 1.17 Troponin I < 0.012 11/24/18 11/25/18 11/25/18 23:35 07:54 07:54 Creatine Kinase 55 CK-MB (CK-2) 1.66 2.03 Troponin I 0.016 < 0.012 Assessment & Plan - Diagnosis (1) Epigastric pain Is this a current diagnosis for this admission?: Yes Plan: We will plan upper endoscopy with possible biopsy. I have discussed with the patient the risk and benefits of the procedure including risk of aspiration and intestinal injury and bleeding. Patient understands and agrees to proceed.
[2018-11-25] MEDS: MIDAZOLAM 2 MG/2 ML INJ ONE ×2 (14:05→14:10)
[2018-11-25] MEDS: FENTANYL CITRATE INJ/PF 100 MCG/2 ML AMPUL ONE ×2 (14:07→14:16)
[2018-11-25] MEDS: SUCRALFATE 1 GM TABLET PO SCH ×3 (14:07→21:13)
[2018-11-25] MEDS: INSULIN LISPRO 100 UNIT/ML 3 ML VIAL SUBCUT SCH ×4 (14:07→21:57)
[2018-11-25] MEDS: INSULIN GLARGINE,HUM.REC.ANLOG 1,000 UNIT/10 ML VIAL SUBCUT SCH (14:09)
[2018-11-25] MEDS: HYDROCHLOROTHIAZIDE 25 MG TABLET PO SCH (14:09)
[2018-11-25] MEDS: METOPROLOL SUCCINATE 50 MG TAB.SR.24H PO SCH (14:10)
[2018-11-25] MEDS: BUSPIRONE HCL 10 MG TABLET PO SCH ×2 (14:10→20:19)
[2018-11-25] MEDS: SERTRALINE HCL 50 MG TABLET PO SCH (14:10)
--- NOTE | 2018-11-25 14:27 | Operative Report ---
Operative Report DATE OF SURGERY: 11/25/18 PREOPERATIVE DIAGNOSIS: Abdominal pain POSTOPERATIVE DIAGNOSIS: Abdominal pain OPERATION: Esophago-gastroduodenoscopy with antral biopsy SURGEON: LUTHER DUNCAN ANESTHESIA: Moderate Sedation TISSUE REMOVED OR ALTERED: Antral biopsy COMPLICATIONS: None ESTIMATED BLOOD LOSS: Minimal INTRAOPERATIVE FINDINGS: Very mild antral erythema but no ulcerations nor erosions nor masses. Normal-appearing duodenum and esophagus. PROCEDURE: Informed consent was obtained. Patient was brought to the endoscopy suite. IV sedation with Versed and fentanyl was administered. Endoscope was passed via the patient's mouth he was fed down to the second portion of the duodenum. The duodenum appeared to be normal. The gastric antrum has some very mild erythema but no erosions no ulcerations no masses. Retroflexed view demonstrated no significant lesions in the gastric fundus nor gastric cardia. Antral biopsy was taken. The esophagus appeared normal. Patient tolerated procedure well with no apparent complications. Fairly minimal upper endoscopy findings. Certainly nothing to explain the degree of epigastric pain that she has. Will await biopsy report. Will obtain an abdominal pelvic CT scan with oral and IV contrast to further evaluate her abdominal pain.
--- NOTE | 2018-11-25 19:33 | RADIOLOGY REPORT (SQ) ---
EXAM DESCRIPTION: CT ABD/PELVIS WITH IV ORAL COMPLETED DATE/TIME: 11/25/2018 5:23 pm REASON FOR STUDY: Abdominal pain COMPARISON: 12/11/2015 TECHNIQUE: CT scan of the abdomen and pelvis performed using helical scanning technique with dynamic intravenous contrast injection. Oral contrast. Images reviewed with lung, soft tissue, and bone win dows. Reconstructed coronal and sagittal MPR images reviewed. Delayed images for evaluation of the ur inary system also acquired. All images stored on PACS. All CT scanners at this facility use dose modulation, iterative reconstruction, and/or weight based d osing when appropriate to reduce radiation dose to as low as reasonably achievable (ALARA). [facility]: Dose Right [facility]: CareDose [facility]: Dose Right [facility]: Teradose 4D [facility]: FlexGen CONTRAST TYPE AND DOSE: contrast/concentration: Isovue 350.00 mg/ml; Total Contrast Delivered: 72.0 ml; Total Saline Delivered: 66.0 ml RENAL FUNCTION: BUN 18 creatinine 1.09 RADIATION DOSE: CT Rad equipment meets quality standard of care and radiation dose reduction techniq ues were employed. CTDIvol: 6.1 - 8.2 mGy. DLP: 684 mGy-cm.. LIMITATIONS: None. FINDINGS: LOWER CHEST: No significant findings. No nodules or infiltrates. LIVER: There is a somewhat ill-defined 3 cm area of decreased attenuation/enhancement in the liver on image 20 series 3 and image 14 series 5. This is adjacent to the fissure. SPLEEN: Normal size. No focal lesions. PANCREAS: No masses. No significant calcifications. No adjacent inflammation or peripancreatic fluid collections. Pancreatic duct not dilated. GALLBLADDER: Surgically absent. ADRENAL GLANDS: No significant masses or asymmetry. RIGHT KIDNEY AND URETER: No solid masses. No significant calcifications. No hydronephrosis or hyd roureter. LEFT KIDNEY AND URETER: No solid masses. No significant calcifications. No hydronephrosis or hydr oureter. AORTA AND VESSELS: No aneurysm. No dissection. Renal arteries, SMA, celiac without stenosis. RETROPERITONEUM: No retroperitoneal adenopathy, hemorrhage or masses. BOWEL AND PERITONEAL CAVITY: No masses or inflammatory changes. No free fluid or peritoneal masses. APPENDIX: Surgically absent. PELVIS: No mass. No free fluid. Normal bladder. ABDOMINAL WALL: No masses. No hernias. BONES: No significant or acute findings. OTHER: No other significant finding. IMPRESSION: There is an area of decreased attenuation adjacent to the fissure. This likely represen ts focal fatty infiltration. Consider ultrasound. No acute finding is seen in the abdomen or pelvis . TECHNICAL DOCUMENTATION: JOB ID: [id number] Quality ID # [id number]: Final reports with documentation of one or more dose reduction techniques (e.g., Au tomated exposure control, adjustment of the mA and/or kV according to patient size, use of iterative reconstruction technique) 2010 [employer]- All Rights Reserved Reading location - IP/workstation name: [email or web address]
[2018-11-25] MEDS: PANTOPRAZOLE SODIUM 40 MG VIAL IV SCH (20:19)
[2018-11-26] MEDS: ONDANSETRON 4 MG TAB.RAPDIS PO PRN (02:20)
[2018-11-26] MEDS: HYDROCHLOROTHIAZIDE 25 MG TABLET PO SCH (08:34)
[2018-11-26] MEDS: SUCRALFATE 1 GM TABLET PO SCH ×3 (08:34→17:09)
[2018-11-26] MEDS: INSULIN LISPRO 100 UNIT/ML 3 ML VIAL SUBCUT SCH ×3 (08:35→17:09)
[2018-11-26] MEDS: INSULIN GLARGINE,HUM.REC.ANLOG 1,000 UNIT/10 ML VIAL SUBCUT SCH (08:39)
[2018-11-26] MEDS: METOPROLOL SUCCINATE 50 MG TAB.SR.24H PO SCH (10:13)
[2018-11-26] MEDS: BUSPIRONE HCL 10 MG TABLET PO SCH ×2 (10:13→17:09)
[2018-11-26] MEDS: SERTRALINE HCL 50 MG TABLET PO SCH (10:13)
[2018-11-26 13:21] VITALS: BP 142/81
--- NOTE | 2018-11-26 17:31 | PDOC DISCHARGE SUMMARY ---
General - Admit/Disc Date/PCP Admission Date/Primary Care Provider: 11/24/18 14:54 NATA ROOT MD Discharge Date: 11/26/18 - Discharge Diagnosis (1) Epigastric pain Is this a current diagnosis for this admission?: Yes (2) Uncontrolled type 1 diabetes mellitus with hyperosmolarity without coma Is this a current diagnosis for this admission?: Yes - Additional Information Resuscitation Status: Full Code Prescriptions: RX: Amitriptyline HCl [Elavil 50 mg Tablet] 50 mg PO DAILY #90 tablet Pantoprazole Sodium [Protonix [address] Tablet] 40 mg PO DAILY #90 tablet.dr Home Medications: RX: Cyclobenzaprine HCl [Flexeril 10 mg Tablet] 10 mg PO TIDP PRN 06/02/18 RX: Sertraline HCl [Zoloft 50 mg Tablet] 50 mg PO DAILY 06/02/18 RX: Hydrochlorothiazide [Hydrodiuril 25 mg Tablet] 25 mg PO QAM tablet 06/03/18 RX: Buspirone HCl [Buspar 10 mg Tablet] 10 mg PO BID 11/24/18 RX: Dapagliflozin Propanediol [Farxiga] 10 mg PO DAILY 11/24/18 RX: Insulin Aspart [Novolog Insulin (Aspart) 100 unit/mL] 0 units SQ .SLIDING SCALE 11/24/18 RX: Insulin Glargine,Hum.rec.anlog [Lantus Insulin 100 Unit/mL Insulin Pen] 16 unit SUBCUT QAM 11/24/18 RX: Metoprolol Succinate [Toprol Xl 50 mg Tab.sr] 50 mg PO DAILY 11/24/18 Pantoprazole Sodium [Protonix [address] Tablet] 40 mg PO DAILY #90 tablet.dr 11/26/18 RX: Amitriptyline HCl [Elavil 50 mg Tablet] 50 mg PO DAILY #90 tablet 11/26/18 History of Present Illness History of Present Illness: ZEYAD NEGRO is a 58 year old female, She has diabetes mellitus type 1 she came to the office today for evaluation of epigastric pain, she said the pain is severe, she was in the emergency room last week twice for the same problem in the emergency room she was evaluated she also had a CAT scan of the abdomen and pelvis with contrast, I reviewed the CAT scan results it was essentially nega tive there was no acute pathology demonstrated on the CAT scan. She has no gallbladder, she has no appendix, in the emergency room she was also found to have no pancreatitis the pancreas on the CAT scan was normal, the lipase was normal but she had uncontrolled diabetes mellitus, because she was in so much pain and the fact that she was requesting to be admitted because she cannot keep any food down she was brought in for observation. She may need to have upper endoscopy done, the abdominal pain she is experiencing could also be from the fact that the diabetes is poorly controlled, she has type 1 diabetes she is new to my practice, she does not know how to count calories, she does not know how to correct hyperglycemic states, she was diagnosed previously erroneously as type 2 diabetes and she has been using oral hypoglycemic medication for the control of diabetes, she has type 1 diabetes she need to know how to count calories, how to correct diabetes when he is not at a target range. Hospital Course Hospital Course: Patient was admitted for evaluation and management of epigastric pain, she underwent upper endoscopy, it was negative for any acute pathology. She also had CT scan of the abdomen and pelvis this was negative, she was brought in for observation, she was seen by the family living educator. The epigastric pain is most likely from uncontrolled diabetes as well as neuropathy pain Physical Exam Vital Signs: Temp Pulse Resp BP Pulse Ox 98.2 F 87 18 142/81 H 98 11/26/18 11:21 11/26/18 14:00 11/26/18 11:21 11/26/18 11:21 11/26/18 11:21 Intake & Output 11/25/18 11/26/18 11/27/18 06:59 06:59 06:59 Intake Total 1500 1607 Balance 1500 1607 Weight 63.3 kg 66.5 kg General appearance: PRESENT: no acute distress, well-developed, well-nourished Head exam: PRESENT: atraumatic, normocephalic Eye exam: PRESENT: conjunctiva pink, EOMI, PERRLA Ear exam: PRESENT: normal external ear exam Mouth exam: PRESENT: moist, tongue midline Neck exam: PRESENT: full ROM Cardiovascular exam: PRESENT: RRR, +S1, +S2 Pulses: PRESENT: normal dorsalis pedis pul, +2 pedal pulses bilateral Vascular exam: PRESENT: normal capillary refill GI/Abdominal exam: PRESENT: normal bowel sounds, soft Rectal exam: PRESENT: deferred Neurological exam: PRESENT: alert, awake, oriented to person, oriented to place, oriented to time, oriented to situation, CN II-XII grossly intact Psychiatric exam: PRESENT: appropriate affect, normal mood Skin exam: PRESENT: dry, intact, warm Results Laboratory Results: 11/24/18 15:33 11/24/18 15:33 11/24/18 11/24/18 11/24/18 15:33 15:33 23:35 Creatine Kinase 57 68 CK-MB (CK-2) 1.17 Troponin I < 0.012 11/24/18 11/25/18 11/25/18 23:35 07:54 07:54 Creatine Kinase 55 CK-MB (CK-2) 1.66 2.03 Troponin I 0.016 < 0.012 Impressions: Abdomen/Pelvis CT 11/25/18 00:00 IMPRESSION: There is an area of decreased attenuation adjacent to the fissure. This likely represents focal fatty infiltration. Consider ultrasound. No acute finding is seen in the abdomen or pelvis. Qualifiers - * PATIENT BEING DISCHARGED WITH ANY OF THE FOLLOWING DIAGNOSIS: No VTE patient discharged on overlapping Therapy?: No Reason(s) for not prescribing Overlap Therapy:: Not indicated Stroke Pt being discharged on Anti-thrombolytic therapy?: No Reason(s) for not prescribing Anti-thrombolytic therapy:: Not indicated Stroke Pt being discharged on Anti-coagulation therapy?: No Reason(s) for not prescribing Anti-coagulation therapy:: Not indicated Stroke Pt being discharged on Statins?: No Reason(s) for not prescribing Statins therapy:: Not indicated ND Pt being discharged on Aspirin therapy?: No Reason(s) for not prescribing Aspirin therapy:: Not indicated ND Pt being discharged on Statins?: No Reason(s) for not prescribing Statin therapy:: Not indicated ND Pt discharged ACEI/ARBS?: No Reason(s) for not prescribing ACEI/ARBS:: Not indicated Acute Heart Failure - Is this a Heart Failure Patient?: No
== END 2018-11-26 18:55 | disposition home or self-care (01) ==
LOC: 3W 14:54
PROVIDERS: ADMIT Internal Medicine; ATTEND Internal Medicine
PROC: 0DB68ZX Excision of Stomach, Via Natural or Artificial Opening Endoscopic, Diagnostic (ICD-10-PCS; principal; 2018-11-25 13:45)
DX: R10.13 Epigastric pain (principal); K29.50 Unspecified chronic gastritis without bleeding; E10.65 Type 1 diabetes mellitus with hyperglycemia; Z79.4 Long term (current) use of insulin; Z79.899 Other long term (current) drug therapy; E78.5 Hyperlipidemia, unspecified; I10 Essential (primary) hypertension; K21.9 Gastro-esophageal reflux disease without esophagitis; M19.90 Unspecified osteoarthritis, unspecified site; M79.7 Fibromyalgia; F32.9 Major depressive disorder, single episode, unspecified; Z90.49 Acquired absence of other specified parts of digestive tract; Z98.51 Tubal ligation status; Z87.891 Personal history of nicotine dependence; Z88.8 Allergy status to other drugs, medicaments and biological substances
CPT/HCPCS: 43239; 36415 ×2; 82553 ×2; 82962 ×3; 82550 ×2; 83690; 85025; 80076; 80048; 84484 ×2; 83036; 88342 ×2; 88305 ×2; 74177; G0378 ×3; G0379; J2250; J1815 ×4; J3490 ×10; S0119 ×2; J3010; J1170; S0164 ×2; J7030 ×2; J0171; J1200; J1610; J2310; J2405

== ENCOUNTER 2018-12-17 09:05 | Emergency (ER) | payer MEDICAID ==
[2018-12-17 09:10] VITALS: BP 152/83
[2018-12-17] MEDS ORDERED: KETOROLAC TROMETHAMINE 60 MG/2 ML SDV IM ONE (09:44)
--- NOTE | 2018-12-17 09:45 | ER Document Report ---
HPI - HPI Time Seen by Provider: 12/17/18 09:39 Pain Level: 5 Notes: 50-year-old female presents the ED with complaints of toothache for the last few months but has become progressively worse in the last 5 days due to having her tooth break off in the right lower area. Previous smoker. Tried feph-uil-kidsssw ibuprofen without relief, has not been seen by her dentist. Denies any trismus, neck pain, pharyngitis. Reports cold sensitivity. States she has been waiting to be seen by [facility]. Denies fevers, chills, chest pain,palpitations, shortness of breath, dyspnea, nausea, vomiting, diarrhea, abdominal pain, blurred vision, double vision, loss of vision, speech changes, LH, dizziness, headaches, wheezing, ST, URI, neck pain, weakness, bowel or bladder dysfunction, saddle anesthesia, numbness or tingling in bilateral upper or lower extremities equally, muscle paralysis, weakness in bilateral upper or lower extremities equally or rash. - REPRODUCTIVE LMP: n/a Reproductive: DENIES: : Past Medical History - General Information source: Patient - Social History Smoking Status: Former Smoker Family History: CAD, DM, Hypertension, Malignancy - Colon cancer and leukemia, Other - COPD - Past Medical History Cardiac Medical History: Reports: Hx Hypercholesterolemia, Hx Hypertension Denies: Hx Coronary Artery Disease, Hx Heart Attack Pulmonary Medical History: Reports: Hx Bronchitis, Hx Pneumonia Denies: Hx Asthma, Hx COPD Neurological Medical History: Denies: Hx Cerebrovascular Accident, Hx Migraine, Hx Seizures Endocrine Medical History: Reports: Hx Diabetes Mellitus Type 1, Hx Diabetes Mellitus Type 2. Denies: Hx Hyperthyroidism, Hx Hypothyroidism Renal/ Medical History: Reports: Hx Renal Insufficiency. Denies: Hx Peritoneal Dialysis GI Medical History: Reports: Hx Gastritis, Hx Gastroesophageal Reflux Disease, Hx Irritable Bowel. Denies: Hx Cirrhosis, Hx Hepatitis Musculoskeletal Medical History: Reports Hx Arthritis, Reports Hx Fibromyalgia, Reports Hx Musculoskeletal Deformity Skin Medical History: Denies Hx Eczema, Denies Hx Psoriasis Psychiatric Medical History: Reports: Hx Anxiety, Hx Depression Infectious Medical History: Denies: Hx Hepatitis Past Surgical History: Reports: Hx Appendectomy, Hx Section, Hx Cholecystectomy, Hx Orthopedic Surgery - L foot, Hx Tonsillectomy - addenoids, Hx Tubal Ligation. Denies: Hx Hysterectomy, Hx Pacemaker - Immunizations Immunizations up to date: Yes Hx Diphtheria, Pertussis, Tetanus Vaccination: Yes Hx Pneumococcal Vaccination: 06/03/00 Vertical Provider Document - CONSTITUTIONAL Agree With Documented VS: Yes Notes: PHYSICAL EXAMINATION: GENERAL: Well-appearing, well-nourished and in no acute distress. HEAD: Atraumatic, normocephalic. EYES: Pupils equal round and reactive to light, extraocular movements intact, conjunctiva are normal. ENT: Nares patent, oropharynx clear without exudates. Moist mucous membranes. # 27gingiva with swelling, erythema and induration. No drainage or open wounds. No fluctuance. No facial swelling. Poor oral dentition, right lower jaw with extensive dental caries, no definite swelling or effusion. NECK: Normal range of motion, supple without lymphadenopathy LUNGS: Breath sounds clear to auscultation bilaterally and equal. No wheezes rales or rhonchi. HEART: Regular rate and rhythm without murmurs ABDOMEN: Soft, nontender, nondistended abdomen. No guarding, no rebound. No masses appreciated. Female : deferred Musculoskeletal: Normal range of motion, no pitting or edema. No cyanosis. NEUROLOGICAL: Cranial nerves grossly intact. Normal speech, normal gait. Normal sensory, motor exams PSYCH: Normal mood, normal affect. SKIN: Warm, Dry, normal turgor, no rashes or lesions noted. - INFECTION CONTROL TRAVEL OUTSIDE OF THE [place] IN LAST 30 DAYS: No Course - Re-evaluation Re-evalutation: 12/17/18 09:48 Slightly hypertensive otherwise vital signs stable, nursing notes reviewed. Afebrile in no distress. Patient given 60 mg Toradol IM, will start on oral kanamycin, take as directed. Patient without trismus, no neck pain. Follow-up with dentist within the next 1 to 2 days, avoid any extremely hot or cold sensitivities. - Vital Signs Vital signs: Temp Pulse Resp BP Pulse Ox 97.7 F 68 16 152/83 H 100 12/17/18 09:08 12/17/18 09:08 12/17/18 09:08 12/17/18 09:08 12/17/18 09:08 Discharge - Discharge Clinical Impression: Dental caries Condition: Stable Disposition: HOME, SELF-CARE Instructions: Toothache ([facility]), [facility], Clindamycin ([facility]), Dentist Additional Instructions: Return immediately for any new or worsening symptoms. Follow up with primary care provider, call tomorrow to make followup appointment. Prescriptions: Ibuprofen [Ibu] 800 mg PO Q6HP PRN #20 tablet PRN Reason: Clindamycin HCl 300 mg PO Q6H #28 capsule Referrals: NATA ROOT MD [Primary Care Provider] - Follow up as needed
== END 2018-12-17 10:11 | disposition home or self-care (01) ==
LOC: ER 09:05
DX: K02.9 Dental caries, unspecified (principal); E78.00 Pure hypercholesterolemia, unspecified; I10 Essential (primary) hypertension; E11.9 Type 2 diabetes mellitus without complications; Z90.49 Acquired absence of other specified parts of digestive tract; Z98.51 Tubal ligation status
CPT/HCPCS: 99282; 96374; J1885

== ENCOUNTER 2019-03-04 09:57 | Day surgery (SDC) | payer MEDICAID ==
[~2019-03-04 09:57] MED LIST: CHONDR SU A NA/HYALUR INTRAOC KIT (SURGICARE) ONE; EPINEPHRINE INJ/PF 1 MG/1 ML AMPULE ONE; FENTANYL CITRATE INJ/PF 100 MCG/2 ML AMPUL ONE; KETOROLAC TROMETHAMINE 0.45% 4 DROP/0.4 ML DROPERETTE OS PRN; LIDOCAINE 1% INJ-PF (10 MG/ML) 30 ML SDV ONE; MIDAZOLAM 2 MG/2 ML INJ ONE; ONDANSETRON HCL INJ/PF 4 MG/2 ML SDV ONE
[2019-03-04] MEDS: TETRACAINE HCL 0.5% OPH SOLN 4 ML OS PRN ×3 (10:21→10:51)
[2019-03-04] MEDS: TROPICAMIDE 1% OPH SOLN 15 ML OS PRN ×3 (10:22→10:44)
[2019-03-04] MEDS: CYCLOPENTOLATE 0.2%/PHENYLEPHRINE 1% OPH SOLN 2 ML OS PRN ×3 (10:22→10:44)
[2019-03-04] MEDS: BESIFLOXACIN HCL 0.6% OPH SUSP 5 ML BOTTLE OS PRN ×4 (10:23→11:08)
[2019-03-04] MEDS: TOBRAMYCIN SULFATE/DEXAMETH OPH OINTMENT 3.5 GM ONE ×2 (11:08)
[2019-03-04] MEDS: DORZOLAMIDE HCL 2%/TIMOLOL MALEAT 0.5% OPH SOLN 10 ML OS PRN ×2 (11:08)
== END 2019-03-04 11:56 | disposition home or self-care (01) ==
LOC: SC 09:57
PROVIDERS: ATTEND Ophthalmology
DX: H25.12 Age-related nuclear cataract, left eye (principal); I10 Essential (primary) hypertension; E11.9 Type 2 diabetes mellitus without complications; K21.9 Gastro-esophageal reflux disease without esophagitis; M79.7 Fibromyalgia; Z87.891 Personal history of nicotine dependence; Z79.4 Long term (current) use of insulin; Z79.899 Other long term (current) drug therapy
CPT/HCPCS: 66984; 82962; 00142; V2632; J2250; J3490 ×5; J0171; J3010; J2405; 142

== ENCOUNTER 2019-03-18 07:57 | Day surgery (SDC) | payer MEDICAID ==
[~2019-03-18 07:57] MED LIST changes: +KETOROLAC TROMETHAMINE 0.45% 4 DROP/0.4 ML DROPERETTE OD PRN; -KETOROLAC TROMETHAMINE 0.45% 4 DROP/0.4 ML DROPERETTE OS PRN
[2019-03-18] MEDS: BESIFLOXACIN HCL 0.6% OPH SUSP 5 ML BOTTLE OD PRN ×4 (08:20→09:13)
[2019-03-18] MEDS: CYCLOPENTOLATE 0.2%/PHENYLEPHRINE 1% OPH SOLN 2 ML OD PRN ×3 (08:20→08:40)
[2019-03-18] MEDS: TETRACAINE HCL 0.5% OPH SOLN 4 ML OD PRN ×3 (08:20→08:54)
[2019-03-18] MEDS: TROPICAMIDE 1% OPH SOLN 15 ML OD PRN ×3 (08:20→08:40)
[2019-03-18] MEDS: DORZOLAMIDE HCL 2%/TIMOLOL MALEAT 0.5% OPH SOLN 10 ML OD PRN ×2 (09:13)
[2019-03-18] MEDS: TOBRAMYCIN SULFATE/DEXAMETH OPH OINTMENT 3.5 GM ONE ×2 (09:13)
== END 2019-03-18 09:47 | disposition home or self-care (01) ==
LOC: SC 07:57
PROVIDERS: ATTEND Ophthalmology
DX: H25.11 Age-related nuclear cataract, right eye (principal); Z98.42 Cataract extraction status, left eye; E11.9 Type 2 diabetes mellitus without complications; I10 Essential (primary) hypertension; M79.7 Fibromyalgia; Z79.4 Long term (current) use of insulin; Z87.891 Personal history of nicotine dependence
CPT/HCPCS: 82962; 00142; 66984; V2632; J2250; J3490 ×5; J0171; J3010; 142; J2405

== ENCOUNTER 2019-10-29 15:56 | Emergency (ER) | payer BC ==
--- NOTE | 2019-10-29 17:13 | ER Document Report ---
ED Medical Screen (RME) - General Chief Complaint: Chest Pain Stated Complaint: CHEST PAIN Time Seen by Provider: 10/29/19 17:03 Primary Care Provider: LISA CORCORAN NP [Primary Care Provider] - Follow up as needed Mode of Arrival: Ambulatory Information source: Patient Notes: 59-year-old female presented to ED for complaint of sugar out of control. She states she was sent over here by her primary care doctor. She states her sugar has been in the 600s up to the 900s and then down into the teens. She states she went to her primary doctor and they told her to come back to the emergency room. She has a history of diabetes kidney failure fibromyalgia and neuropathy. She states they did not check her sugar in the doctor's office they just told her to come to the emergency room. She states her blood sugar is 329 Accu-Chek I have greeted and performed a rapid initial assessment of this patient. A comprehensive ED assessment and evaluation of the patient, analysis of test results and completion of medical decision making process will be conducted by an additional ED providers. TRAVEL OUTSIDE OF THE [place] IN LAST 30 DAYS: No - Related Data Allergies/Adverse Reactions: ramipril [From Altace] Allergy (Severe, Verified 03/12/19 15:51) Hives triprolidine HCl [From Actifed] Allergy (Severe, Verified 03/12/19 15:51) DOUBLE VISION scallops Allergy (Intermediate, Verified 03/12/19 15:55) Nausea shrimp Allergy (Intermediate, Verified 03/12/19 15:55) VOMITING milk Allergy (Mild, Verified 03/12/19 15:55) Nausea wheat Allergy (Mild, Verified 03/12/19 15:55) Nausea grass pollen Allergy (Unknown, Verified 03/12/19 15:56) hydromorphone [From Dilaudid] Allergy (Verified 03/18/19 08:46) ITCHING lisinopril [Lisinopril] Adverse Reaction (Intermediate, Verified 03/02/19 10:46) COUGHING pregabalin [From Lyrica] Adverse Reaction (Intermediate, Verified 03/12/19 15:51) Nausea Past Medical History - Past Medical History Cardiac Medical History: Reports: Hx Hypercholesterolemia, Hx Hypertension Denies: Hx Coronary Artery Disease, Hx Heart Attack Pulmonary Medical History: Reports: Hx Bronchitis, Hx Pneumonia Denies: Hx Asthma, Hx COPD Neurological Medical History: Denies: Hx Cerebrovascular Accident, Hx Migraine, Hx Seizures Endocrine Medical History: Reports: Hx Diabetes Mellitus Type 1, Hx Diabetes Mellitus Type 2. Denies: Hx Hyperthyroidism, Hx Hypothyroidism Renal/ Medical History: Reports: Hx Renal Insufficiency. Denies: Hx Peritoneal Dialysis GI Medical History: Reports: Hx Gastritis, Hx Gastroesophageal Reflux Disease, Hx Irritable Bowel, Hx Ulcer - YEARS AGO. Denies: Hx Cirrhosis, Hx Hepatitis, Hx Hiatal Hernia Musculoskeltal Medical History: Reports Hx Arthritis, Reports Hx Fibromyalgia, Reports Hx Musculoskeletal Deformity Skin Medical History: Denies Hx Eczema, Denies Hx Psoriasis Psychiatric Medical History: Reports: Hx Anxiety, Hx Depression Infectious Medical History: Denies: Hx Hepatitis Past Surgical History: Reports: Hx Appendectomy, Hx Section, Hx Cholecystectomy, Hx Nose Surgery, Hx Oral Surgery, Hx Orthopedic Surgery - L foot, Hx Tonsillectomy - addenoids, Hx Tubal Ligation. Denies: Hx Hysterectomy, Hx Mastectomy, Hx Open Heart Surgery, Hx Pacemaker - Immunizations Immunizations up to date: Yes Hx Diphtheria, Pertussis, Tetanus Vaccination: Yes Physical Exam - Vital signs Vitals: Temp Pulse Resp BP Pulse Ox 98.4 F 74 16 140/90 H 100 10/29/19 16:10 10/29/19 16:10 10/29/19 16:10 10/29/19 16:10 10/29/19 16:10 Course - Vital Signs Vital signs: Temp Pulse Resp BP Pulse Ox 98.4 F 74 16 140/90 H 100 10/29/19 16:10 10/29/19 16:10 10/29/19 16:10 10/29/19 16:10 10/29/19 16:10 Doctor's Discharge - Discharge Referrals: LISA CORCORAN PATTERN MARKER [Primary Care Provider] - Follow up as needed
--- NOTE | 2019-10-29 17:59 | RADIOLOGY REPORT (SQ) ---
EXAM DESCRIPTION: CHEST 2 VIEWS IMAGES COMPLETED DATE/TIME: 10/29/2019 4:29 pm REASON FOR STUDY: chest pain. COMPARISON: None. EXAM PARAMETERS: NUMBER OF VIEWS: two views TECHNIQUE: Digital Frontal and Lateral radiographic views of the chest acquired. RADIATION DOSE: NA LIMITATIONS: none FINDINGS: LUNGS AND PLEURA: No opacities, masses or pneumothorax. No pleural effusion. MEDIASTINUM AND HILAR STRUCTURES: No masses or contour abnormalities. HEART AND VASCULAR STRUCTURES: Heart normal size. No evidence for failure. BONES: No acute findings. HARDWARE: None in the chest. OTHER: No other significant finding. IMPRESSION: NO ACUTE RADIOGRAPHIC FINDING IN THE CHEST. TECHNICAL DOCUMENTATION: JOB ID: [id number] 2010 [employer]- All Rights Reserved Reading location - IP/workstation name: [email or web address]
[2019-10-29 18:30] LABS: APPEARANCE,URINE CLEAR; BILIRUBIN,URINE NEGATIVE (NEGATIVE); COLOR,URINE STRAW; GLUCOSE, URINE >=500 mg/dL (NEGATIVE); KETONES,URINE TRACE mg/dL (NEGATIVE); LEUKOCYTE ESTERASE,URINE NEGATIVE (NEGATIVE); NITRITE,URINE NEGATIVE (NEGATIVE); PROTEIN,URINE NEGATIVE (NEGATIVE); URINE SPECIFIC GRAVITY 1.016; UROBILINOGEN,URINE NEGATIVE mg/dL (<2.0)
[2019-10-29 18:34] LABS: VENOUS BLOOD BASE EXCESS 4.8 mmol/L; VENOUS BLOOD HCO3 32.6 mmol/L (20-32); VENOUS BLOOD PCO2 62.3 mmHg (35-63); VENOUS BLOOD PH 7.34 (7.30-7.42)
[2019-10-29 18:35] LABS: ABSOLUTE EOSINOPHILS # (AUTO) 0.1 10^3/uL (0.0-0.6); ABSOLUTE MONOCYTES (AUTO) 0.4 10^3/uL (0.1-1.4); ABSOLUTE NEUT (AUTO) 3.4 10^3/uL (1.7-8.2); BASOPHILS % (AUTO) 0.6 % (0-2); EOSINOPHILS % (AUTO) 1.8 % (0-6); HEMOGLOBIN 13.7 g/dL (12.0-15.5); LYMPHOCYTES % (AUTO) 33.7 % (13-45); MEAN CORPUSCULAR HEMOGLOBIN 31.4 pg (27.0-33.4); MEAN CORPUSCULAR VOLUME 90 fl (80-97); MONOCYTES % (AUTO) 7.1 % (3-13); PLATELET COUNT 196 10^3/uL (150-450); RED BLOOD COUNT 4.35 10^6/uL (3.72-5.28); RED CELL DISTRIBUTION WIDTH 13.4 % (11.5-14.0); SEGMENTED NEUTROPHILS % (AUTO) 56.8 % (42-78); TOTAL CELLS COUNTED % (AUTO) 100 %; WHITE BLOOD COUNT 5.9 10^3/uL (4.0-10.5)
[2019-10-29 18:56] LABS: ALBUMIN 4.4 g/dL (3.5-5.0); ALKALINE PHOSPHATASE 99 U/L (38-126); ANION GAP 7 (5-19); ASPARTATE AMINO TRANSFERASE 23 U/L (14-36); BILIRUBIN,TOTAL 0.7 mg/dL (0.2-1.3); BLOOD UREA NITROGEN 17 mg/dL (7-20); CALCIUM 9.3 mg/dL (8.4-10.2); CARBON DIOXIDE 33 mmol/L (22-30); CHLORIDE 92 mmol/L (98-107); GLUCOSE 298 mg/dL (75-110); POTASSIUM 3.5 mmol/L (3.6-5.0); TOTAL PROTEIN 7.2 g/dL (6.3-8.2)
--- NOTE | 2019-10-29 18:59 | EKG REPORT ---
SEVERITY:- NORMAL ECG - SINUS RHYTHM : Confirmed by: Chris Seaman MD 29-Oct-2019 18:58:44
[2019-10-29 19:13] LABS: NT PRO BNP 132 pg/mL (<125); TROPONIN I < 0.012 ng/mL
--- NOTE | 2019-10-29 23:31 | ER Document Report ---
ED General - General Chief Complaint: Chest Pain Stated Complaint: CHEST PAIN Time Seen by Provider: 10/29/19 17:03 Primary Care Provider: LISA CORCORAN NP [Primary Care Provider] - Follow up in 3-5 days Mode of Arrival: Ambulatory Notes: Patient is a 59-year-old female that comes emergency department for chief complaint of abnormal blood glucose levels. She is a type I diabetic on insulin , she states she barely eats anything and then tries to regulate it later and this has not worked over the past couple of days. She states sometimes her blood sugar has even been up into the 600s, and then sometimes down in the low teens. She states that she was seen by her primary care and they told her to come to the emergency department to be evaluated because of her erratic numbers. She also states that she has had pain in her "chest", she points to her mid upper abdomen and left upper quadrant. She denies pain in the chest location when I clarified. She denies shortness of breath, cough, fever, nausea, vomiting, or any current symptoms. Past medical history includes type 1 diabete s, fibromyalgia, hypertension, neuropathy. TRAVEL OUTSIDE OF THE [place] IN LAST 30 DAYS: No - Related Data Allergies/Adverse Reactions: ramipril [From Altace] Allergy (Severe, Verified 03/12/19 15:51) Hives triprolidine HCl [From Actifed] Allergy (Severe, Verified 03/12/19 15:51) DOUBLE VISION scallops Allergy (Intermediate, Verified 03/12/19 15:55) Nausea shrimp Allergy (Intermediate, Verified 03/12/19 15:55) VOMITING milk Allergy (Mild, Verified 03/12/19 15:55) Nausea wheat Allergy (Mild, Verified 03/12/19 15:55) Nausea grass pollen Allergy (Unknown, Verified 03/12/19 15:56) hydromorphone [From Dilaudid] Allergy (Verified 03/18/19 08:46) ITCHING lisinopril [Lisinopril] Adverse Reaction (Intermediate, Verified 03/02/19 10:46) COUGHING pregabalin [From Lyrica] Adverse Reaction (Intermediate, Verified 03/12/19 15:51) Nausea Past Medical History - General Information source: Patient - Social History Smoking Status: Never Smoker Frequency of alcohol use: None Drug Abuse: None Family History: CAD, DM, Hypertension, Malignancy - Colon cancer and leukemia, Other - COPD Patient has homicidal ideation: No - Past Medical History Cardiac Medical History: Reports: Hx Hypercholesterolemia, Hx Hypertension Denies: Hx Coronary Artery Disease, Hx Heart Attack Pulmonary Medical History: Reports: Hx Bronchitis, Hx Pneumonia Denies: Hx Asthma, Hx COPD Neurological Medical History: Denies: Hx Cerebrovascular Accident, Hx Migraine, Hx Seizures Endocrine Medical History: Reports: Hx Diabetes Mellitus Type 1, Hx Diabetes Mellitus Type 2. Denies: Hx Hyperthyroidism, Hx Hypothyroidism Renal/ Medical History: Reports: Hx Renal Insufficiency. Denies: Hx Peritoneal Dialysis GI Medical History: Reports: Hx Gastritis, Hx Gastroesophageal Reflux Disease, Hx Irritable Bowel, Hx Ulcer - YEARS AGO. Denies: Hx Cirrhosis, Hx Hepatitis, Hx Hiatal Hernia Musculoskeletal Medical History: Reports Hx Arthritis, Reports Hx Fibromyalgia, Reports Hx Musculoskeletal Deformity Skin Medical History: Denies Hx Eczema, Denies Hx Psoriasis Psychiatric Medical History: Reports: Hx Anxiety, Hx Depression Infectious Medical History: Denies: Hx Hepatitis Past Surgical History: Reports: Hx Appendectomy, Hx Section, Hx Chol ecystectomy, Hx Nose Surgery, Hx Oral Surgery, Hx Orthopedic Surgery - L foot, Hx Tonsillectomy - addenoids, Hx Tubal Ligation. Denies: Hx Hysterectomy, Hx Mastectomy, Hx Open Heart Surgery, Hx Pacemaker - Immunizations Immunizations up to date: Yes Hx Diphtheria, Pertussis, Tetanus Vaccination: Yes Hx Pneumococcal Vaccination: 06/03/00 Review of Systems - Review of Systems Constitutional: No symptoms reported EENT: No symptoms reported Cardiovascular: See HPI Respiratory: No symptoms reported Gastrointestinal: See HPI Genitourinary: No symptoms reported Female Genitourinary: No symptoms reported Musculoskeletal: No symptoms reported Skin: No symptoms reported Hematologic/Lymphatic: No symptoms reported Neurological/Psychological: No symptoms reported Physical Exam - Vital signs Vitals: Temp Pulse Resp BP Pulse Ox 98.4 F 74 16 140/90 H 100 10/29/19 16:10 10/29/19 16:10 10/29/19 16:10 10/29/19 16:10 10/29/19 16:10 - Notes Notes: GENERAL: Alert, interacts well. No acute distress. HEAD: Normocephalic, atraumatic. EYES: Pupils equal, round, and reactive to light. Extraocular movements intact. ENT: Oral mucosa moist, tongue midline. Oropharynx unremarkable. Airway patent. NECK: Full range of motion. Supple. Trachea midline. No lymphadenopathy. LUNGS: Clear to auscultation bilaterally, no wheezes, rales, or rhonchi. No respiratory distress. Non-tender chest wall. HEART: Regular rate and rhythm. No murmur ABDOMEN: There is some tenderness in the left upper quadrant and minimally in the epigastric area. Remaining abdomen is soft and benign. Bowel sounds present. No guarding. GENITOURINARY: Deferred EXTREMITIES: Moves all 4 extremities spontaneously. No edema, normal radial and dorsalis pedis pulses bilaterally. No cyanosis. BACK: no cervical, thoracic, lumbar midline tenderness. No saddle anesthesia, normal distal neurovascular exam. Moves all extremities in full range of motion. NEUROLOGICAL: Alert and oriented x3. Normal speech. Cranial nerves II through XII grossly intact. Strength 5/5 in all extremities. PSYCH: Normal affect, normal mood. SKIN: Warm, dry, normal turgor. No rashes or lesions noted. Course - Re-evaluation Re-evalutation: Patient with left upper quadrant and minimally epigastric pain on exam. She actually does not have any chest pain. Symptoms been going on for several days. Patient admits to an extensive history of gastric reflux and gastritis along with esophagitis in the past. She has had positive endoscopy in the past showing this. She denies any bleeding symptoms or history of GI bleed. Lipase unremarkable, troponin negative despite several days, EKG unremarkable, chest x- ray unremarkable. CBC unremarkable. Chemistry does show hyperglycemia but there is no acidosis, anion gap is unremarkable. Patient is not dehydrated on urinalysis. Patient is asking to go home. I discussed symptoms which are likely gastritis, discussed expectations, treatment, follow-up, and return precautions at length. Patient states understanding and agreement. Stable and well-appearing at time of discharge. - Vital Signs Vital signs: Temp Pulse Resp BP Pulse Ox 98.4 F 74 16 140/90 H 100 10/29/19 17:04 10/29/19 16:10 10/29/19 16:10 10/29/19 16:10 10/29/19 16:10 - Laboratory Result Diagrams: 10/29/19 18:13 10/29/19 18:13 Laboratory results interpreted by me: 10/29/19 10/29/19 10/29/19 18:08 18:13 18:13 VBG HCO3 32.6 H Sodium 132.3 L Potassium 3.5 L Chloride 92 L Carbon Dioxide 33 H Glucose 298 H NT-Pro-B Natriuret Pep Urine Glucose (UA) >=500 H Urine Ketones TRACE H 10/29/19 18:13 VBG HCO3 Sodium Potassium Chloride Carbon Dioxide Glucose NT-Pro-B Natriuret Pep 132 H Urine Glucose (UA) Urine Ketones - EKG Interpretation by Me Additional EKG results interpreted by me: EKG shows sinus rhythm at a rate of 75, QTc 447, normal axis, no T wave inversions or ST segment changes in consecutive leads. Discharge - Discharge Clinical Impression: Left upper quadrant abdominal pain, Hyperglycemia Condition: Stable Disposition: HOME, SELF-CARE Additional Instructions: Your evaluation is reassuring, your overall evaluation and exam indicate inflammation of your upper gastrointestinal tract, specifically gastritis. Please take the provided medication as directed, avoid NSAIDs, caffeine, alcohol, spicy food, smoking and start with bland diet until symptoms resolve. Take your normal insulin with the eating. Follow-up with primary care for additional management. Come back if you worsen including vomiting, vomiting blood, severe worsening pain, black stools, or any other concerning symptoms. Prescriptions: Sucralfate [Carafate 1 gm Tablet] 1 gm PO QID #20 tablet Famotidine [Pepcid 20 mg Tablet] 20 mg PO BID #14 tablet Ondansetron [Zofran Odt 4 mg Tablet] 1 - 2 tab PO Q4H PRN #15 tab.rapdis PRN Reason: For Nausea/Vomiting Forms: Return to Work Referrals: LISA CORCORAN NP [Primary Care Provider] - Follow up in 3-5 days
[2019-10-29] MEDS ORDERED: SUCRALFATE 1 GM TABLET PO ONE (23:35)
[2019-10-29] MEDS ORDERED: ONDANSETRON ODT 4 MG TAB (6 TAB/ER DISP) PO PRN (23:35)
[2019-10-29] MEDS ORDERED: FAMOTIDINE 20 MG TABLET PO ONE (23:35)
[2019-10-30 04:29] VITALS: BP 149/98
== END 2019-10-29 23:50 | disposition home or self-care (01) ==
LOC: ER 15:56
DX: R10.12 Left upper quadrant pain (principal); R07.9 Chest pain, unspecified; E11.65 Type 2 diabetes mellitus with hyperglycemia; E78.00 Pure hypercholesterolemia, unspecified; I10 Essential (primary) hypertension; Z79.4 Long term (current) use of insulin; Z90.49 Acquired absence of other specified parts of digestive tract; Z98.51 Tubal ligation status
CPT/HCPCS: 36415; 71046; 80053; 81001; 82803; 82962; 83690; 83735; 83880; 84484; 85025; 93005; 93010; 99285

== ENCOUNTER → 2019-11-30 | Outpatient (CLI) | payer BC, OTHER | LOC: WI 14:40 | PROVIDERS: ATTEND Internal Medicine | DX: Z12.31 Encounter for screening mammogram for malignant neoplasm of breast (principal) | CPT/HCPCS: 77067 ==

== ENCOUNTER 2020-01-02 14:28 | Emergency (ER) | payer BC ==
[2020-01-02] MEDS ORDERED: NORMAL SALINE 1000 ML 1,000 ML IV ONE (15:48)
--- NOTE | 2020-01-02 15:50 | ER Document Report ---
ED Medical Screen (RME) - General Chief Complaint: High Blood Sugar Stated Complaint: BLOOD SUGAR PROBLEMS Time Seen by Provider: 01/02/20 15:45 Primary Care Provider: NATA ROOT MD [Primary Care Provider] - Follow up as needed Notes: HPI: 59-year-old insulin-dependent diabetic presenting for epigastric abdominal pain over the last 2 to 3 days with elevated blood sugars since yesterday. Sugars been over 400 at home despite insulin use. No fever. No dysuria. States the pain does seem to go through the epigastric region into the back. PHYSICAL EXAMINATION: Mild epigastric tenderness on palpation. Lung sounds are clear to auscultation regular rate and rhythm. I have greeted and performed a rapid initial assessment of this patient. A comprehensive ED assessment and evaluation of the patient, analysis of test results and completion of medical decision making process will be conducted by an additional ED providers. TRAVEL OUTSIDE OF THE [place] IN LAST 30 DAYS: No - Related Data Allergies/Adverse Reactions: ramipril [From Altace] Allergy (Severe, Verified 01/02/20 15:43) Hives triprolidine HCl [From Actifed] Allergy (Severe, Verified 01/02/20 15:43) DOUBLE VISION scallops Allergy (Intermediate, Verified 01/02/20 15:43) Nausea shrimp Allergy (Intermediate, Verified 01/02/20 15:43) VOMITING milk Allergy (Mild, Verified 01/02/20 15:43) Nausea wheat Allergy (Mild, Verified 01/02/20 15:43) Nausea grass pollen Allergy (Unknown, Verified 01/02/20 15:43) hydromorphone [From Dilaudid] Allergy (Verified 01/02/20 15:43) ITCHING lisinopril [Lisinopril] Adverse Reaction (Intermediate, Verified 01/02/20 15:43) COUGHING pregabalin [From Lyrica] Adverse Reaction (Intermediate, Verified 01/02/20 15:43) Nausea Past Medical History - Past Medical History Cardiac Medical History: Reports: Hx Hypercholesterolemia, Hx Hypertension Denies: Hx Coronary Artery Disease, Hx Heart Attack Pulmonary Medical History: Reports: Hx Bronchitis, Hx Pneumonia Denies: Hx Asthma, Hx COPD Neurological Medical History: Denies: Hx Cerebrovascular Accident, Hx Migraine, Hx Seizures Endocrine Medical History: Reports: Hx Diabetes Mellitus Type 1, Hx Diabetes Mellitus Type 2. Denies: Hx Hyperthyroidism, Hx Hypothyroidism Renal/ Medical History: Reports: Hx Renal Insufficiency. Denies: Hx Peritoneal Dialysis GI Medical History: Reports: Hx Gastritis, Hx Gastroesophageal Reflux Disease, Hx Irritable Bowel, Hx Ulcer - YEARS AGO. Denies: Hx Cirrhosis, Hx Hepatitis, Hx Hiatal Hernia Musculoskeltal Medical History: Reports Hx Arthritis, Reports Hx Fibromyalgia, Reports Hx Musculoskeletal Deformity Skin Medical History: Denies Hx Eczema, Denies Hx Psoriasis Psychiatric Medical History: Reports: Hx Anxiety, Hx Depression Infectious Medical History: Denies: Hx Hepatitis Past Surgical History: Reports: Hx Appendectomy, Hx Section, Hx Cholecystectomy, Hx Nose Surgery, Hx Oral Surgery, Hx Orthopedic Surgery - L foot, Hx Tonsillectomy - addenoids, Hx Tubal Ligation. Denies: Hx Hysterectomy, Hx Mastectomy, Hx Open Heart Surgery, Hx Pacemaker - Immunizations Immunizations up to date: Yes Hx Diphtheria, Pertussis, Tetanus Vaccination: Yes Physical Exam - Vital signs Vitals: Temp Pulse Resp BP Pulse Ox 97.7 F 80 18 155/97 H 93 01/02/20 14:34 01/02/20 14:34 01/02/20 14:34 01/02/20 14:34 01/02/20 14:34 Course - Vital Signs Vital signs: Temp Pulse Resp BP Pulse Ox 97.7 F 80 18 155/97 H 93 01/02/20 14:34 01/02/20 14:34 01/02/20 14:34 01/02/20 14:34 01/02/20 14:34 - Laboratory Laboratory results interpreted by me: 01/02/20 15:24 POC Glucose 425 H* Doctor's Discharge - Discharge Referrals: NATA ROOT MD [Primary Care Provider] - Follow up as needed
[2020-01-02 16:31] LABS: ABSOLUTE EOSINOPHILS # (AUTO) 0.1 10^3/uL (0.0-0.6); ABSOLUTE LYMPHOCYTES (AUTO) 1.7 10^3/uL (0.5-4.7); ABSOLUTE MONOCYTES (AUTO) 0.4 10^3/uL (0.1-1.4); BASOPHILS % (AUTO) 0.6 % (0-2); EOSINOPHILS % (AUTO) 1.5 % (0-6); HEMATOCRIT 40.1 % (36.0-47.0); HEMOGLOBIN 13.7 g/dL (12.0-15.5); LYMPHOCYTES % (AUTO) 27.3 % (13-45); MEAN CORPUSCULAR HGB CONC 34.2 g/dL (32.0-36.0); MEAN CORPUSCULAR VOLUME 91 fl (80-97); MONOCYTES % (AUTO) 6.4 % (3-13); PLATELET COUNT 173 10^3/uL (150-450); RED BLOOD COUNT 4.42 10^6/uL (3.72-5.28); SEGMENTED NEUTROPHILS % (AUTO) 64.2 % (42-78); TOTAL CELLS COUNTED % (AUTO) 100 %; WHITE BLOOD COUNT 6.2 10^3/uL (4.0-10.5)
[2020-01-02 16:32] LABS: VENOUS BLOOD BASE EXCESS 2.5 mmol/L; VENOUS BLOOD HCO3 30.4 mmol/L (20-32); VENOUS BLOOD PCO2 61.1 mmHg (35-63); VENOUS BLOOD PH 7.32 (7.30-7.42)
[2020-01-02 16:40] LABS: APPEARANCE,URINE CLEAR; BILIRUBIN,URINE NEGATIVE (NEGATIVE); COLOR,URINE STRAW; GLUCOSE, URINE >=500 mg/dL (NEGATIVE); KETONES,URINE NEGATIVE (NEGATIVE); LEUKOCYTE ESTERASE,URINE NEGATIVE (NEGATIVE); NITRITE,URINE NEGATIVE (NEGATIVE); PROTEIN,URINE NEGATIVE (NEGATIVE); URINE SPECIFIC GRAVITY 1.023; UROBILINOGEN,URINE NEGATIVE mg/dL (<2.0)
[2020-01-02 16:49] LABS: ALBUMIN 4.5 g/dL (3.5-5.0); ALKALINE PHOSPHATASE 105 U/L (38-126); ANION GAP 6 (5-19); ASPARTATE AMINO TRANSFERASE 20 U/L (14-36); BILIRUBIN,TOTAL 0.8 mg/dL (0.2-1.3); BLOOD UREA NITROGEN 26 mg/dL (7-20); CALCIUM 9.7 mg/dL (8.4-10.2); CARBON DIOXIDE 32 mmol/L (22-30); CHLORIDE 93 mmol/L (98-107); GLUCOSE 398 mg/dL (75-110); POTASSIUM 3.9 mmol/L (3.6-5.0); TOTAL PROTEIN 7.3 g/dL (6.3-8.2)
--- NOTE | 2020-01-02 21:08 | ER Document Report ---
ED General - General Chief Complaint: High Blood Sugar Stated Complaint: BLOOD SUGAR PROBLEMS Time Seen by Provider: 01/02/20 15:45 Primary Care Provider: NATA ROOT MD [Primary Care Provider] - Follow up as needed Notes: 59-year-old woman presents to the emergency department due to a elevated blood sugar. She states that her blood sugars have been running in the 500s today. Here in the emergency department it was noted to be 464. Patient denies nausea, dizziness or other associated symptoms. She has been monitoring her blood sugars closely, however has not been using the insulin as a sliding scale. She only uses the insulin when she eats. TRAVEL OUTSIDE OF THE [place] IN LAST 30 DAYS: No - Related Data Allergies/Adverse Reactions: ramipril [From Altace] Allergy (Severe, Verified 01/02/20 15:43) Hives triprolidine HCl [From Actifed] Allergy (Severe, Verified 01/02/20 15:43) DOUBLE VISION scallops Allergy (Intermediate, Verified 01/02/20 15:43) Nausea shrimp Allergy (Intermediate, Verified 01/02/20 15:43) VOMITING milk Allergy (Mild, Verified 01/02/20 15:43) Nausea wheat Allergy (Mild, Verified 01/02/20 15:43) Nausea grass pollen Allergy (Unknown, Verified 01/02/20 15:43) hydromorphone [From Dilaudid] Allergy (Verified 01/02/20 15:43) ITCHING lisinopril [Lisinopril] Adverse Reaction (Intermediate, Verified 01/02/20 15:43) COUGHING pregabalin [From Lyrica] Adverse Reaction (Intermediate, Verified 01/02/20 15 :43) Nausea Past Medical History - Social History Smoking Status: Former Smoker Family History: CAD, DM, Hypertension, Malignancy - Colon cancer and leukemia, Other - COPD Patient has homicidal ideation: No - Past Medical History Cardiac Medical History: Reports: Hx Hypercholesterolemia, Hx Hypertension Denies: Hx Coronary Artery Disease, Hx Heart Attack Pulmonary Medical History: Reports: Hx Bronchitis, Hx Pneumonia Denies: Hx Asthma, Hx COPD Neurological Medical History: Denies: Hx Cerebrovascular Accident, Hx Migraine, Hx Seizures Endocrine Medical History: Reports: Hx Diabetes Mellitus Type 1, Hx Diabetes Mellitus Type 2. Denies: Hx Hyperthyroidism, Hx Hypothyroidism Renal/ Medical History: Reports: Hx Renal Insufficiency. Denies: Hx Peritoneal Dialysis GI Medical History: Reports: Hx Gastritis, Hx Gastroesophageal Reflux Disease, Hx Irritable Bowel, Hx Ulcer - YEARS AGO. Denies: Hx Cirrhosis, Hx Hepatitis, Hx Hiatal Hernia Musculoskeletal Medical History: Reports Hx Arthritis, Reports Hx Fibromyalgia, Reports Hx Musculoskeletal Deformity Skin Medical History: Denies Hx Eczema, Denies Hx Psoriasis Psychiatric Medical History: Reports: Hx Anxiety, Hx Depression Infectious Medical History: Denies: Hx Hepatitis Past Surgical History: Reports: Hx Appendectomy, Hx Section, Hx Cholecystectomy, Hx Nose Surgery, Hx Oral Surgery, Hx Orthopedic Surgery - L beverly t, Hx Tonsillectomy - addenoids, Hx Tubal Ligation. Denies: Hx Hysterectomy, Hx Mastectomy, Hx Open Heart Surgery, Hx Pacemaker - Immunizations Immunizations up to date: Yes Hx Diphtheria, Pertussis, Tetanus Vaccination: Yes Hx Pneumococcal Vaccination: 06/03/00 Review of Systems - Review of Systems Notes: Constitutional: Negative for fever. HENT: Negative for sore throat. Eyes: Negative for visual changes. Cardiovascular: Negative for chest pain. Respiratory: Negative for shortness of breath. Gastrointestinal: Negative for abdominal pain, vomiting or diarrhea. Genitourinary: Negative for dysuria. Musculoskeletal: Negative for back pain. Skin: Negative for rash. Neurological: Negative for headaches, weakness or numbness. 10 point ROS negative except as marked above and in HPI. Physical Exam - Vital signs Vitals: Temp Pulse Resp BP Pulse Ox 97.7 F 80 18 155/97 H 93 01/02/20 14:34 01/02/20 14:34 01/02/20 14:34 01/02/20 14:34 01/02/20 14:34 - Notes Notes: PHYSICAL EXAMINATION: Physical Exam: General: Well-nourished well-developed 59-year-old woman in no acute distress HEENT: NC/AT, pupils equal round and reactive to light, MM moist,nares clear, oropharynx clear, airway patent Neck: supple, no adenopathy, no masses. Good range of motion Lungs: clear, no wheezing, no rales no rhonchi CVS: Regular rate and rhythm no murmur gallop or rub Abdomen: Soft, active, nontender, no masses, no hepatosplenomegaly Ext: No edema, clubbing or cyanosis. Neuro: Alert and responsive, moving all 4 extremities on command, cranial nerves intact, no focal findings Skin: Intact no open lesions, no rash Course - Re-evaluation Re-evalutation: 01/02/20 21:05 Patient is given 1 L of normal saline and repeat blood sugar is noted to be 264. Discussed utilization of regular insulin for sliding scale and explained to the patient that she and her primary provider should not review how they would like to her to use the insulin. In the meantime however I have asked her to increase her fluid intake and to try to eat as she has been advised as well as monitor the blood sugar closely. The patient acknowledges understanding of this plan and is in agreement. - Vital Signs Vital signs: Temp Pulse Resp BP Pulse Ox 97.7 F 80 15 155/97 H 100 01/02/20 14:34 01/02/20 14:34 01/02/20 19:00 01/02/20 14:34 01/02/20 19:00 - Laboratory Result Diagrams: 01/02/20 16:10 01/02/20 16:10 Laboratory results interpreted by me: 01/02/20 01/02/20 01/02/20 15:24 16:10 16:10 Sodium 131.0 L Chloride 93 L Carbon Dioxide 32 H BUN 26 H Est GFR (MDRD) Non-Af 50 L Glucose 398 H POC Glucose 425 H* Urine Glucose (UA) >=500 H 01/02/20 20:38 Sodium Chloride Carbon Dioxide BUN Est GFR (MDRD) Non-Af Glucose POC Glucose 261 H Urine Glucose (UA) 01/02/20 21:06 I have reviewed laboratory data and used this information for the treatment decisions regarding the patient. Discharge - Discharge Clinical Impression: Hyperglycemia due to type 1 diabetes mellitus Condition: Good Disposition: HOME, SELF-CARE Instructions: Hyperglycemia (OM) Additional Instructions: You were seen in the emergency department tonight with an elevated blood sugar, please take your medications as they were previously prescribed and try to eat as you were instructed by your doctors and your fur matcher. Follow-up with your primary care doctor early next week for reevaluation and adjustment of medications as needed. HOME CARE INSTRUCTIONS & INFORMATION: Thank you for choosing us for your medical needs. We hope you're satisfied with the care you received. After you leave, you must properly care for your problem and, at the same time, observe its progress. Any condition can change. Some illnesses can change rapidly over hours or days. If your condition worsens, return to the Emergency Department or see your physician promptly. ABOUT YOUR X-RAYS AND EKG'S: If you had an EKG or X-rays taken, they have been read by the Emergency Physician. The X-rays and EKG's will also be read by a Radiologist or Merchandising Team Lead within 24 hours. If discrepancies are noted, you w ill be notified by telephone. Please be certain the ED has a correct telephone number & address where you can be reached. Also, realize that some fractures or abnormalities do not show up on initial X-rays. If your symptoms continue, see your physician. ABOUT YOUR LABORATORY TEST: If you had laboratory tests, the results have been reviewed by the Emergency Physician. Some test results (for example cultures) may not be available for several days. You will be contacted if any test result shows you need additional treatment. Please be certain the ED has a correct telephone number and address where you can be reached. ABOUT YOUR MEDICATIONS: You will receive instructions on how to take your medicine on the prescription label you receive. Additional information may be provided by the Pharmacy. If you have questions afterwards, call the ED for clarification or further instructions. Some prescribed medications may cause drowsiness. Do not perform tasks such as driving a car or operating machinery without consulting your Pharmacist. If you feel you need a refill of pain medic ation, your condition will need re-evaluation. Please do not call for a refill of any medication. ABOUT YOUR SIGNATURE: Signature of this document acknowledges to followin. Understanding that you received emergency treatment and that you may be released before al medical problems are known or treated. Please be certain the ED has a correct phone number & address where you can be reached. 2. Acknowledgement that you will arrange for follow-up care as recommended. 3. Authorization for the Emergency Physician to provide information to your follow-up Physician in order to maximize your care. AT ANY TIME, IF YOUR SYMPTOMS CHANGE SIGNIFICANTLY OR WORSEN OR YOU DEVELOP NEW SYMPTOMS, RETURN TO THE EMERGENCY DEPARTMENT IMMEDIATELY FOR RE-EVALUATION. OUR GOAL IS TO PROVIDE EXCELLENT MEDICAL CARE! WE HOPE THAT WE HAVE MET YOUR EXPECTATIONS DURING YOUR EMERGENCY DEPARTMENT VISIT AND THAT YOU FEEL YOU HAVE RECEIVED EXCELLENT CARE! Referrals: NATA ROOT MD [Primary Care Provider] - Follow up as needed
--- NOTE | 2020-01-02 21:08 | EKG REPORT ---
SEVERITY:- ABNORMAL ECG - SINUS RHYTHM ABERRANT COMPLEX, POSSIBLY SUPRAVENTRICULAR ABNRM R PROG, CONSIDER ASMI OR LEAD PLACEMENT : Confirmed by: Sandra Pretty MD 02-Jan-2020 21:07:05
[2020-01-02 21:23] VITALS: BP 150/97
== END 2020-01-02 21:23 | disposition home or self-care (01) ==
LOC: ER 14:28
DX: E10.65 Type 1 diabetes mellitus with hyperglycemia (principal); Z79.4 Long term (current) use of insulin; E78.00 Pure hypercholesterolemia, unspecified; I10 Essential (primary) hypertension
CPT/HCPCS: 93005; 99285; 96360; 96361; 36415; 82962; 83690; 85025; 80053; 81001; 84484; 82803; 93010; J7030

== ENCOUNTER 2020-02-14 14:12 | Emergency (ER) | payer BC ==
[2020-02-14 14:19] VITALS: BP 160/93
[2020-02-14] MEDS ORDERED: NORMAL SALINE 1000 ML 1,000 ML IV ONE (14:26)
[2020-02-14] MEDS ORDERED: ONDANSETRON HCL INJ/PF 4 MG/2 ML SDV IV ONE (14:27)
--- NOTE | 2020-02-14 14:28 | ER Document Report ---
ED Medical Screen (RME) - General Chief Complaint: High Blood Sugar Stated Complaint: HIGH BLOOD SUGAR Time Seen by Provider: 02/14/20 14:22 Primary Care Provider: NATA ROOT MD [Primary Care Provider] - Follow up as needed Information source: Patient Notes: Patient presents complaining of elevated blood sugars for the past 2 days. Patient states her blood sugar earlier today was over 500 she did take some insulin about an hour prior to arrival. Patient reports generalized body aches with nausea. I have greeted and performed a rapid initial assessment of this patient. A com prehensive ED assessment and evaluation of the patient, analysis of test results and completion of the medical decision making process will be conducted by additional ED providers. TRAVEL OUTSIDE OF THE [place] IN LAST 30 DAYS: No - Related Data Allergies/Adverse Reactions: ramipril [From Altace] Allergy (Severe, Verified 01/02/20 15:43) Hives triprolidine HCl [From Actifed] Allergy (Severe, Verified 01/02/20 15:43) DOUBLE VISION scallops Allergy (Intermediate, Verified 01/02/20 15:43) Nausea shrimp Allergy (Intermediate, Verified 01/02/20 15:43) VOMITING milk Allergy (Mild, Verified 01/02/20 15:43) Nausea wheat Allergy (Mild, Verified 01/02/20 15:43) Nausea grass pollen Allergy (Unknown, Verified 01/02/20 15:43) hydromorphone [From Dilaudid] Allergy (Verified 01/02/20 15:43) ITCHING lisinopril [Lisinopril] Adverse Reaction (Intermediate, Verified 01/02/20 15:43) COUGHING pregabalin [From Lyrica] Adverse Reaction (Intermediate, Verified 01/02/20 15:43) Nausea Past Medical History - Past Medical History Cardiac Medical History: Reports: Hx Hypercholesterolemia, Hx Hypertension Denies: Hx Coronary Artery Disease, Hx Heart Attack Pulmonary Medical History: Reports: Hx Bronchitis, Hx Pneumonia Denies: Hx Asthma, Hx COPD Neurological Medical History: Denies: Hx Cerebrovascular Accident, Hx Migraine, Hx Seizures Endocrine Medical History: Reports: Hx Diabetes Mellitus Type 1, Hx Diabetes Mellitus Type 2. Denies: Hx Hyperthyroidism, Hx Hypothyroidism Renal/ Medical History: Reports: Hx Renal Insufficiency. Denies: Hx Peritoneal Dialysis GI Medical History: Reports: Hx Gastritis, Hx Gastroesophageal Reflux Disease, Hx Irritable Bowel, Hx Ulcer - YEARS AGO. Denies: Hx Cirrhosis, Hx Hepatitis, Hx Hiatal Hernia Musculoskeltal Medical History: Reports Hx Arthritis, Reports Hx Fibromyalgia, Reports Hx Musculoskeletal Deformity Skin Medical History: Denies Hx Eczema, Denies Hx Psoriasis Psychiatric Medical History: Reports: Hx Anxiety, Hx Depression Infectious Medical History: Denies: Hx Hepatitis Past Surgical History: Reports: Hx Appendectomy, Hx Section, Hx Cholecystectomy, Hx Nose Surgery, Hx Oral Surgery, Hx Orthopedic Surgery - L foot, Hx Tonsillectomy - addenoids, Hx Tubal Ligation. Denies: Hx Hysterectomy, Hx Mastectomy, Hx Open Heart Surgery, Hx Pacemaker - Immunizations Immunizations up to date: Yes Hx Diphtheria, Pertussis, Tetanus Vaccination: Yes Physical Exam - Vital signs Vitals: Temp Pulse Resp BP Pulse Ox 98.4 F 74 18 160/93 H 100 02/14/20 14:16 02/14/20 14:16 02/14/20 14:16 02/14/20 14:16 02/14/20 14:16 - Respiratory Respiratory status: No respiratory distress Chest status: Nontender Breath sounds: Normal - Cardiovascular Rhythm: Regular Heart sounds: S1 appreciated, S2 appreciated Course - Vital Signs Vital signs: Temp Pulse Resp BP Pulse Ox 98.4 F 74 18 160/93 H 100 02/14/20 14:16 02/14/20 14:16 02/14/20 14:16 02/14/20 14:16 02/14/20 14:16 - Laboratory Laboratory results interpreted by me: 02/14/20 14:17 POC Glucose 204 H Doctor's Discharge - Discharge Referrals: NATA ROOT MD [Primary Care Provider] - Follow up as needed
--- NOTE | 2020-02-14 15:00 | ER Document Report ---
ED Blood Sugar Problem - General Chief Complaint: High Blood Sugar Stated Complaint: HIGH BLOOD SUGAR Time Seen by Provider: 02/14/20 14:22 Primary Care Provider: NATA ROOT MD [Primary Care Provider] - Follow up as needed Notes: CHIEF COMPLAINT: Elevated blood sugars for 2 days HPI: 60-year-old female who is a type I diabetic presenting for elevated blood sugars of the last 2 days with nausea no vomiting no fever slight cough, she is not concerned about COVID. No chest pain no shortness of breath. Denies abdominal pain. Does report some frequency of urination. She has been using her sliding scale insulin. Patient states that she believes part of this is her diet at work where she does not stop to eat or take her insulin consistently ROS: See HPI - all other systems were reviewed and are otherwise negative Constitutional: no fever Eyes: no drainage, no blurred vision ENT: no runny nose, no sore throat Cardiovascular: no chest pain Resp: no SOB, no cough GI: no vomiting, no diarrhea, no abdominal pain, positive nausea : no dysuria Integumentary: no rash Allergy: no hives Musculoskeletal: no extremity pain or swelling Neurological: no numbness/tingling, no weakness MEDICATIONS: I agree with the patient medications as charted by the RN. ALLERGIES: I agree with the allergies as charted by the RN. PAST MEDICAL HISTORY/PAST SURGICAL HISTORY: Reviewed and agree as charted by RN. SOCIAL HISTORY: Reviewed and agree as charted by RN. FAMILY HISTORY: No significant familial comorbid conditions directly related to patient complaint EXAM: Reviewed vital signs as charted by RN. CONSTITUTIONAL: Alert and oriented and responds appropriately to questions. Well-appearing; well-nourished HEAD: Normocephalic; atraumatic EYES: PERRL; Conjunctivae clear, sclerae non-icteric ENT: normal nose; no rhinorrhea; moist mucous membranes; pharynx without lesions noted, no uvula edema or deviation, no tonsillar hypertrophy, phonation normal NECK: Supple without meningismus; non-tender; no cervical lymphadenopathy, no masses CARD: RRR; no murmurs, no clicks, no rubs, no gallops; symmetric distal pulses RESP: Normal chest excursion without splinting or tachypnea; breath sounds clear and equal bilaterally; no wheezes, no rhonchi, no rales, pulse oximetry 98% on room air not hypoxic ABD/GI: Normal bowel sounds; non-distended; soft, non-tender, no rebound, no guarding; no palpable organomegaly or masses. BACK: The back appears normal and is non-tender to palpation, there is no CVA tenderness EXT: Normal ROM in all joints; non-tender to palpation; no cyanosis, no effusions, no edema SKIN: Normal color for age and race; warm; dry; good turgor; no acute lesions noted NEURO: Moves all extremities equally; Motor and sensory function intact PSYCH: The patient's mood and manner are appropriate. Grooming and personal hygiene are appropriate. MDM: 60-year-old female presenting for hyperglycemia over the last 2 days. Will obtain baseline screening labs to ensure patient does not in DKA. She has absolutely no chest pain shortness of breath to suggest ACS or atypical ACS. She does report some nausea. Initial screening labs placed via triage process. EKG normal sinus rhythm with a ventricular rate of 73 CT 124 QT 400 QTc 441. No other visible ectopy. Normal EKG. Interpreted by emergency department physician TRAVEL OUTSIDE OF THE [place] IN LAST 30 DAYS: No - Related Data Allergies/Adverse Reactions: ramipril [From Altace] Allergy (Severe, Verified 01/02/20 15:43) Hives triprolidine HCl [From Actifed] Allergy (Severe, Verified 01/02/20 15:43) DOUBLE VISION scallops Allergy (Intermediate, Verified 01/02/20 15:43) Nausea shrimp Allergy (Intermediate, Verified 01/02/20 15:43) VOMITING milk Allergy (Mild, Verified 01/02/20 15:43) Nausea wheat Allergy (Mild, Verified 01/02/20 15:43) Nausea grass pollen Allergy (Unknown, Verified 01/02/20 15:43) hydromorphone [From Dilaudid] Allergy (Verified 01/02/20 15:43) ITCHING lisinopril [Lisinopril] Adverse Reaction (Intermediate, Verified 01/02/20 15:43) COUGHING pregabalin [From Lyrica] Adverse Reaction (Intermediate, Verified 01/02/20 1 5:43) Nausea Past Medical History - General Information source: Patient - Social History Smoking Status: Unknown if Ever Smoked Family History: CAD, DM, Hypertension, Malignancy - Colon cancer and leukemia, Other - COPD - Past Medical History Cardiac Medical History: Reports: Hx Hypercholesterolemia, Hx Hypertension Denies: Hx Coronary Artery Disease, Hx Heart Attack Pulmonary Medical History: Reports: Hx Bronchitis, Hx Pneumonia Denies: Hx Asthma, Hx COPD Neurological Medical History: Denies: Hx Cerebrovascular Accident, Hx Migraine, Hx Seizures Endocrine Medical History: Reports: Hx Diabetes Mellitus Type 1, Hx Diabetes Mellitus Type 2. Denies: Hx Hyperthyroidism, Hx Hypothyroidism Renal/ Medical History: Reports: Hx Renal Insufficiency. Denies: Hx Peritoneal Dialysis GI Medical History: Reports: Hx Gastritis, Hx Gastroesophageal Reflux Disease, Hx Irritable Bowel, Hx Ulcer - YEARS AGO. Denies: Hx Cirrhosis, Hx Hepatitis, Hx Hiatal Hernia Musculoskeletal Medical History: Reports Hx Arthritis, Reports Hx Fibromyalgia, Reports Hx Musculoskeletal Deformity Skin Medical History: Denies Hx Eczema, Denies Hx Psoriasis Psychiatric Medical History: Reports: Hx Anxiety, Hx Depression Infectious Medical History: Denies: Hx Hepatitis Past Surgical History: Reports: Hx Appendectomy, Hx Section, Hx Cholecystectomy, Hx Nose Surgery, Hx Oral Surgery, Hx Orthopedic Surgery - L foot, Hx Tonsillectomy - addenoids, Hx Tubal Ligation. Denies: Hx Hysterectomy, Hx Mastectomy, Hx Open Heart Surgery, Hx Pacemaker - Immunizations Immunizations up to date: Yes Hx Diphtheria, Pertussis, Tetanus Vaccination: Yes Hx Pneumococcal Vaccination: 06/03/00 Physical Exam - Vital signs Vitals: Temp Pulse Resp BP Pulse Ox 98.4 F 74 18 160/93 H 100 02/14/20 14:16 02/14/20 14:16 02/14/20 14:16 02/14/20 14:16 02/14/20 14:16 Course - Re-evaluation Re-evalutation: 02/14/20 16:22 Patient has not had any vomiting in the ER states nausea is slightly improved. Patient's lab work shows mild hypokalemia but she is not in DKA. Does not appear to have a urinary tract infection. Will treat symptomatically follow-up PCP. - Vital Signs Vital signs: Temp Pulse Resp BP Pulse Ox 98.4 F 74 18 160/93 H 100 02/14/20 14:16 02/14/20 14:16 02/14/20 14:16 02/14/20 14:16 02/14/20 14:16 - Laboratory Result Diagrams: 02/14/20 15:05 02/14/20 15:05 Laboratory results interpreted by me: 02/14/20 02/14/20 02/14/20 14:17 15:05 15:05 VBG pH Sodium 133.9 L Potassium 3.1 L Chloride 91 L Carbon Dioxide 32 H BUN 23 H Est GFR ( Amer) 59 L Est GFR (MDRD) Non-Af 49 L Glucose 187 H POC Glucose 204 H Urine Glucose (UA) >=500 H 02/14/20 15:05 VBG pH 7.44 H Sodium Potassium Chloride Carbon Dioxide BUN Est GFR ( Amer) Est GFR (MDRD) Non-Af Glucose POC Glucose Urine Glucose (UA) Discharge - Discharge Clinical Impression: Hyperglycemia Vomiting Qualifiers: Vomiting type: unspecified Vomiting Intractability: non-intractable Nausea presence: with nausea Qualified Code(s): R11.2 - Nausea with vomiting, unspecified Condition: Stable Disposition: HOME, SELF-CARE Additional Instructions: Take Zofran for any continued nausea or vomiting. Push fluids at home. It did not appear that you were in diabetic ketoacidosis today. Call your primary care provider tomorrow to schedule follow-up in the office for reevaluation or return to the emergency department if symptoms worsen. You declined COVID testing today. Prescriptions: Ondansetron [Zofran Odt 4 mg Tablet] 1 - 2 tab PO Q4H PRN #15 tab.rapdis PRN Reason: For Nausea/Vomiting Referrals: NATA ROOT MD [Primary Care Provider] - Follow up as needed
[2020-02-14 15:25] LABS: ABSOLUTE EOSINOPHILS # (AUTO) 0.1 10^3/uL (0.0-0.6); ABSOLUTE LYMPHOCYTES (AUTO) 2.4 10^3/uL (0.5-4.7); ABSOLUTE MONOCYTES (AUTO) 0.4 10^3/uL (0.1-1.4); ABSOLUTE NEUT (AUTO) 3.7 10^3/uL (1.7-8.2); BASOPHILS % (AUTO) 0.6 % (0-2); EOSINOPHILS % (AUTO) 1.8 % (0-6); HEMATOCRIT 41.1 % (36.0-47.0); HEMOGLOBIN 14.5 g/dL (12.0-15.5); MEAN CORPUSCULAR HEMOGLOBIN 31.1 pg (27.0-33.4); MEAN CORPUSCULAR HGB CONC 35.3 g/dL (32.0-36.0); MEAN CORPUSCULAR VOLUME 88 fl (80-97); MONOCYTES % (AUTO) 6.3 % (3-13); PLATELET COUNT 216 10^3/uL (150-450); RED BLOOD COUNT 4.65 10^6/uL (3.72-5.28); SEGMENTED NEUTROPHILS % (AUTO) 55.3 % (42-78); TOTAL CELLS COUNTED % (AUTO) 100 %; WHITE BLOOD COUNT 6.6 10^3/uL (4.0-10.5)
[2020-02-14 15:26] LABS: VENOUS BLOOD HCO3 27.6 mmol/L (20-32); VENOUS BLOOD PCO2 42.1 mmHg (35-63); VENOUS BLOOD PH 7.44 (7.30-7.42)
[2020-02-14 15:31] LABS: APPEARANCE,URINE CLEAR; BILIRUBIN,URINE NEGATIVE (NEGATIVE); COLOR,URINE YELLOW; GLUCOSE, URINE >=500 mg/dL (NEGATIVE); KETONES,URINE NEGATIVE (NEGATIVE); LEUKOCYTE ESTERASE,URINE NEGATIVE (NEGATIVE); NITRITE,URINE NEGATIVE (NEGATIVE); PROTEIN,URINE NEGATIVE (NEGATIVE); URINE SPECIFIC GRAVITY 1.024; UROBILINOGEN,URINE NEGATIVE mg/dL (<2.0)
[2020-02-14 15:42] LABS: ALBUMIN 4.7 g/dL (3.5-5.0); ALKALINE PHOSPHATASE 108 U/L (38-126); ANION GAP 11 (5-19); ASPARTATE AMINO TRANSFERASE 24 U/L (14-36); BILIRUBIN,DIRECT 0.3 mg/dL (0.0-0.4); BILIRUBIN,TOTAL 0.8 mg/dL (0.2-1.3); BLOOD UREA NITROGEN 23 mg/dL (7-20); CALCIUM 9.7 mg/dL (8.4-10.2); CARBON DIOXIDE 32 mmol/L (22-30); CHLORIDE 91 mmol/L (98-107); GLUCOSE 187 mg/dL (75-110); POTASSIUM 3.1 mmol/L (3.6-5.0); TOTAL PROTEIN 7.8 g/dL (6.3-8.2)
[2020-02-14] MEDS ORDERED: POTASSIUM CHLORIDE 10 MEQ TABLET.ER PO ONE (15:43)
--- NOTE | 2020-02-15 02:46 | EKG REPORT ---
SEVERITY:- NORMAL ECG - SINUS RHYTHM : Confirmed by: Cristian Bowman MD 15-Feb-2020 02:45:55
== END 2020-02-14 16:40 | disposition home or self-care (01) ==
LOC: ER 14:12
DX: E11.65 Type 2 diabetes mellitus with hyperglycemia (principal); R11.2 Nausea with vomiting, unspecified; R05 Cough; Z79.4 Long term (current) use of insulin; Z91.14 Patient's other noncompliance with medication regimen; Z88.8 Allergy status to other drugs, medicaments and biological substances; E87.6 Hypokalemia; I10 Essential (primary) hypertension
CPT/HCPCS: 93005; 99284; 96361; 96374; 36415; 82962; 85025; 80053; 81001; 84484; 82803; 93010; J2405; J7030

== ENCOUNTER 2020-03-22 12:55 | Emergency (ER) | payer BC ==
[2020-03-22] MEDS ORDERED: KETOROLAC TROMETHAMINE 60 MG/2 ML SDV IM ONE (14:46)
[2020-03-22] MEDS ORDERED: MAG HYDROX/AL HYDROX/SIMETH SUSP 30 ML UDCUP PO ONE (14:47)
[2020-03-22] MEDS ORDERED: METOCLOPRAMIDE HCL ORAL SOLN 10 MG/10 ML UDCUP PO ONE (14:47)
[2020-03-22] MEDS ORDERED: LIDOCAINE 2% VISCOUS SOLN 15 ML UDCUP PO ONE (14:47)
--- NOTE | 2020-03-22 14:53 | ER Document Report ---
ED Medical Screen (RME) - General Chief Complaint: Abdominal Pain Stated Complaint: BACK PAIN Time Seen by Provider: 03/22/20 14:37 Primary Care Provider: NATA ROOT MD [Primary Care Provider] - Follow up as needed TRAVEL OUTSIDE OF THE [place] IN LAST 30 DAYS: No - HPI Notes: 03/22/20 14:46 60-year-old female with a history of gastritis, colitis, chronic back pain and t ype 2 diabetes presents to emergency room with today for complaints of nausea, vomiting, upper abdominal pain for the last 5 days. states she has been taking Zofran and Protonix to help with her pain without full relief. Reports pain is 5 out of 5, throbbing, sharp, constant. Patient states she thinks she may have an exacerbation of her back pain, she has been doing some heavy lifting recently. She does follow with pain management. patient states her stomach pain is getting progressively worse patient reports she has had a cholecystectomy and an appendectomy. denies any fevers or chills. denies chest pain, sob. I have greeted and performed a rapid initial assessment of this patient. A comprehensive ED assessment and evaluation of the patient, analysis of test results and completion of the medical decision making process will be conducted by additional ED providers. PHYSICAL EXAMINATION: GENERAL: Well-appearing, well-nourished and in no acute distress. CV: s1, s2 regular LUNGS: No respiratory distress abd: RUQ, epigastric tenderness, LLQ abd pain. no cva tenderness appreciated. Musculoskeletal: Normal range of motion. spinal tenderness to L1-L3. no pain with hip rotation. +pain in right lower back with knee to chest. NEUROLOGICAL: Normal speech, normal gait. SKIN: Warm, Dry, normal turgor, no rashes or lesions noted. - Related Data Allergies/Adverse Reactions: ramipril [From Altace] Allergy (Severe, Verified 03/22/20 14:37) Hives triprolidine HCl [From Actifed] Allergy (Severe, Verified 03/22/20 14:37) DOUBLE VISION scallops Allergy (Intermediate, Verified 03/22/20 14:37) Nausea shrimp Allergy (Intermediate, Verified 03/22/20 14:37) VOMITING milk Allergy (Mild, Verified 03/22/20 14:37) Nausea wheat Allergy (Mild, Verified 03/22/20 14:37) Nausea grass pollen Allergy (Unknown, Verified 03/22/20 14:37) hydromorphone [From Dilaudid] Allergy (Verified 03/22/20 14:37) ITCHING lisinopril [Lisinopril] Adverse Reaction (Intermediate, Verified 03/22/20 14:37) COUGHING pregabalin [From Lyrica] Adverse Reaction (Intermediate, Verified 03/22/20 14:37) Nausea Home Medications: INSULIN. PAIN MEDS Past Medical History - Social History Chew tobacco use (# tins/day): No Frequency of alcohol use: None Drug Abuse: None - Past Medical History Cardiac Medical History: Reports: Hx Hypercholesterolemia, Hx Hypertension Denies: Hx Coronary Artery Disease, Hx Heart Attack Pulmonary Medical History: Reports: Hx Bronchitis, Hx Pneumonia Denies: Hx Asthma, Hx COPD Neurological Medical History: Denies: Hx Cerebrovascular Accident, Hx Migraine, Hx Seizures Endocrine Medical History: Reports: Hx Diabetes Mellitus Type 1, Hx Diabetes Mellitus Type 2. Denies: Hx Hyperthyroidism, Hx Hypothyroidism Renal/ Medical History: Reports: Hx Renal Insufficiency. Denies: Hx Peritoneal Dialysis GI Medical History: Reports: Hx Gastritis, Hx Gastroesophageal Reflux Disease, Hx Irritable Bowel, Hx Ulcer - YEARS AGO. Denies: Hx Cirrhosis, Hx Hepatitis, Hx Hiatal Hernia Musculoskeltal Medical History: Reports Hx Arthritis, Reports Hx Fibromyalgia, Reports Hx Musculoskeletal Deformity Skin Medical History: Denies Hx Eczema, Denies Hx Psoriasis Psychiatric Medical History: Reports: Hx Anxiety, Hx Depression Infectious Medical History: Denies: Hx Hepatitis Past Surgical History: Reports: Hx Appendectomy, Hx Section, Hx Cholecystectomy, Hx Nose Surgery, Hx Oral Surgery, Hx Orthopedic Surgery - L foot, Hx Tonsillectomy - addenoids, Hx Tubal Ligation. Denies: Hx Hysterectomy, Hx Mastectomy, Hx Open Heart Surgery, Hx Pacemaker - Immunizations Immunizations up to date: Yes Hx Diphtheria, Pertussis, Tetanus Vaccination: Yes Physical Exam - Vital signs Vitals: Temp Pulse Resp BP Pulse Ox 98.3 F 78 18 140/93 H 99 03/22/20 13:08 03/22/20 13:08 03/22/20 13:08 03/22/20 13:08 03/22/20 13:08 Course - Vital Signs Vital signs: Temp Pulse Resp BP Pulse Ox 98.3 F 78 18 140/93 H 99 10/20/20 14:37 03/22/20 13:08 03/22/20 13:08 03/22/20 13:08 03/22/20 13:08 Doctor's Discharge - Discharge Referrals: NATA ROOT MD [Primary Care Provider] - Follow up as needed
--- NOTE | 2020-03-22 15:52 | RADIOLOGY REPORT (SQ) ---
EXAM DESCRIPTION: ACUTE ABDOMEN SERIES IMAGES COMPLETED DATE/TIME: 03/22/2020 3:42 pm REASON FOR STUDY: abd pain, n/v COMPARISON: 11/19/2018 NUMBER OF VIEWS: Three views. TECHNIQUE: Frontal chest, supine abdomen and upright/decubitus abdomen radiographic images acquired. LIMITATIONS: None. FINDINGS: CHEST: Lungs clear of infiltrates. FREE AIR: None. No abnormal gas collections. BOWEL GAS PATTERN: Nonobstructive pattern. No dilated loops or air fluid levels. CALCIFICATIONS: No suspicious calcifications. HARDWARE: Cholecystectomy clips. Bilateral pelvic surgical clips. Additional radiodensity overlies right hip, presumably external to the patient. SOFT TISSUES: No gross mass or suggestion of organomegaly. BONES: No acute fracture. No worrisome bone lesions. OTHER: No other significant finding. IMPRESSION: No evidence of acute intrathoracic disease. No evidence of acute intra-abdominal/pelvic process. TECHNICAL DOCUMENTATION: JOB ID: [id number] 2010 [employer]- All Rights Reserved Reading location - IP/workstation name: [email or web address]
[2020-03-22 16:19] LABS: ABSOLUTE EOSINOPHILS # (AUTO) 0.1 10^3/uL (0.0-0.6); ABSOLUTE LYMPHOCYTES (AUTO) 2.1 10^3/uL (0.5-4.7); ABSOLUTE MONOCYTES (AUTO) 0.4 10^3/uL (0.1-1.4); ABSOLUTE NEUT (AUTO) 4.8 10^3/uL (1.7-8.2); BASOPHILS % (AUTO) 0.5 % (0-2); EOSINOPHILS % (AUTO) 1.2 % (0-6); HEMATOCRIT 41.3 % (36.0-47.0); HEMOGLOBIN 14.5 g/dL (12.0-15.5); LYMPHOCYTES % (AUTO) 28.1 % (13-45); MEAN CORPUSCULAR HEMOGLOBIN 31.3 pg (27.0-33.4); MEAN CORPUSCULAR HGB CONC 35.2 g/dL (32.0-36.0); MEAN CORPUSCULAR VOLUME 89 fl (80-97); PLATELET COUNT 210 10^3/uL (150-450); RED BLOOD COUNT 4.63 10^6/uL (3.72-5.28); RED CELL DISTRIBUTION WIDTH 13.1 % (11.5-14.0); SEGMENTED NEUTROPHILS % (AUTO) 64.2 % (42-78); TOTAL CELLS COUNTED % (AUTO) 100 %; WHITE BLOOD COUNT 7.4 10^3/uL (4.0-10.5)
[2020-03-22 16:42] LABS: ALBUMIN 4.6 g/dL (3.5-5.0); ALKALINE PHOSPHATASE 107 U/L (38-126); ANION GAP 11 (5-19); ASPARTATE AMINO TRANSFERASE 20 U/L (14-36); BILIRUBIN,DIRECT 0.3 mg/dL (0.0-0.4); BILIRUBIN,TOTAL 0.9 mg/dL (0.2-1.3); BLOOD UREA NITROGEN 25 mg/dL (7-20); CALCIUM 9.9 mg/dL (8.4-10.2); CARBON DIOXIDE 32 mmol/L (22-30); CHLORIDE 90 mmol/L (98-107); POTASSIUM 3.8 mmol/L (3.6-5.0); TOTAL PROTEIN 7.1 g/dL (6.3-8.2)
[2020-03-22 16:53] LABS: GLUCOSE 436 mg/dL (75-110)
--- NOTE | 2020-03-22 16:59 | ER Document Report ---
ED GI/ - General Chief Complaint: Abdominal Pain Stated Complaint: BACK PAIN Time Seen by Provider: 03/22/20 14:37 Primary Care Provider: NATA ROOT MD [Primary Care Provider] - Follow up as needed Mode of Arrival: Ambulatory Information source: Patient Notes: 03/22/20 14:38 - ED Nursing Note by SANDHYA HOLDERA Acct Num: [id number] : 1960 Patient Age: 60 X 4 DAYS. NAUSEA AND VOMITING ON SATURDAY. NAUSEA SINCE. STATES ABDOMINAL PAIN. STATES SHE HAS CHRONIC BACK PAIN AND THE PAIN HAS INCREASED. STATES SHE TOOK 2 OF HER PAIN MEDICATION AND IT DID NOT HELP . STATES SHE ALSO TOOK IBUPROFEN. THAT WAS ON SATURDAY. STATES PAIN MANAGEMENT APPT LAST WEEK. SHE WAS SENT FOR XRAYS. NO RESULTS YET. REPORTS CRAMPING IN HER LEGS. NO VOMITING TODAY. POSITIVE FOR NAUSEA TODAY. TOOK ZOFRAN AND PROTONIX AND IT IS NOT HELPING. PT IS ALERT AND ORIENTED. RESP ARE EVEN AND UNLABORED. SPEAKING IN FULL SENTENCES. ED Medical Screen ([facility]) - General Chief Complaint: Abdominal Pain Stated Complaint: BACK PAIN Time Seen by Provider: 03/22/20 14:37 Primary Care Provider: NATA ROOT MD [Primary Care Provider] - Follow up as needed TRAVEL OUTSIDE OF THE [place] IN LAST 30 DAYS: No - HPI Notes: 03/22/20 14:46 60-year-old female with a history of gastritis, colitis, chronic back pain and type 2 diabetes presents to emergency room with today for complaints of nausea, vomiting, upper abdominal pain for the last 5 days. states she has been taking Zofran and Protonix to help with her pain without full relief. Reports pain is 5 out of 5, throbbing, sharp, constant. Patient states she thinks she may have an exacerbation of her back pain, she has been doing some heavy lifting recently. She does follow with pain management. patient states her stomach pain is getting progressively worse patient reports she has had a cholecystectomy and an appendectomy. denies any fevers or chills. denies chest pain, sob. I have greeted and performed a rapid initial assessment of this patient. A comprehensive ED assessment and evaluation of the patient, analysis of test results and completion of the medical decision making process will be conducted by additional ED providers. PHYSICAL EXAMINATION: GENERAL: Well-appearing, well-nourished and in no acute distress. CV: s1, s2 regular LUNGS: No respiratory distress abd: RUQ, epigastric tenderness, LLQ abd pain. no cva tenderness appreciated. Musculoskeletal: Normal range of motion. spinal tenderness to L1-L3. no pain with hip rotation. +pain in right lower back with knee to chest. NEUROLOGICAL: Normal speech, normal gait. SKIN: Warm, Dry, normal turgor, no rashes or lesions noted. MY NOTES 60-year-old female arrives with 4-day history of mid back pain with a history of bone spurs for many years. This has had increased pain over the last for 5 days but also has a nausea vomiting upper abdominal pain for the last 5 days as well. Patient reports she has a history of diabetes and the last time this happened several months ago she did well on Protonix. 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 TRAVEL OUTSIDE OF THE [place] IN LAST 30 DAYS: No - HPI Patient complains to provider of: Abdominal pain, Vomiting Onset: Other - x 5 days Timing/Duration: Sudden, Persistent Quality of pain: Achy Severity at maximum: Moderate Pain Level: 2 Location: Epigastric, Low back - Related Data Allergies/Adverse Reactions: ramipril [From Altace] Allergy (Severe, Verified 03/22/20 14:37) Hives triprolidine HCl [From Actifed] Allergy (Severe, Verified 03/22/20 14:37) DOUBLE VISION scallops Allergy (Intermediate, Verified 03/22/20 14:37) Nausea shrimp Allergy (Intermediate, Verified 03/22/20 14:37) VOMITING milk Allergy (Mild, Verified 03/22/20 14:37) Nausea wheat Allergy (Mild, Verified 03/22/20 14:37) Nausea grass pollen Allergy (Unknown, Verified 03/22/20 14:37) hydromorphone [From Dilaudid] Allergy (Verified 03/22/20 14:37) ITCHING lisinopril [Lisinopril] Adverse Reaction (Intermediate, Verified 03/22/20 14:37) COUGHING pregabalin [From Lyrica] Adverse Reaction (Intermediate, Verified 03/22/20 14:37) Nausea Home Medications: INSULIN. PAIN MEDS Past Medical History - General Information source: Patient - Social History Smoking Status: Former Smoker Cigarette use (# per day): No Chew tobacco use (# tins/day): No Smoking Education Provided: No Frequency of alcohol use: None Drug Abuse: None Lives with: Family Family History: CAD, DM, Hypertension, Malignancy - Colon cancer and leukemia, Other - COPD Patient has suicidal ideation: No Patient has homicidal ideation: No - Past Medical History Cardiac Medical History: Reports: Hx Hypercholesterolemia, Hx Hypertension Denies: Hx Coronary Artery Disease, Hx Heart Attack Pulmonary Medical History: Reports: Hx Bronchitis, Hx Pneumonia Denies: Hx Asthma, Hx COPD Neurological Medical History: Denies: Hx Cerebrovascular Accident, Hx Migraine, Hx Seizures Endocrine Medical History: Reports: Hx Diabetes Mellitus Type 1, Hx Diabetes Mellitus Type 2. Denies: Hx Hyperthyroidism, Hx Hypothyroidism Renal/ Medical History: Reports: Hx Renal Insufficiency. Denies: Hx Peritoneal Dialysis GI Medical History: Reports: Hx Gastritis, Hx Gastroesophageal Reflux Disease, Hx Irritable Bowel, Hx Ulcer - YEARS AGO. Denies: Hx Cirrhosis, Hx Hepatitis, Hx Hiatal Hernia Musculoskeletal Medical History: Reports Hx Arthritis, Reports Hx Fibromyalgia, Reports Hx Musculoskeletal Deformity Skin Medical History: Denies Hx Eczema, Denies Hx Psoriasis Psychiatric Medical History: Reports: Hx Anxiety, Hx Depression Infectious Medical History: Denies: Hx Hepatitis Past Surgical History: Reports: Hx Appendectomy, Hx Section, Hx Cholecystectomy, Hx Nose Surgery, Hx Oral Surgery, Hx Orthopedic Surgery - L foot, Hx Tonsillectomy - addenoids, Hx Tubal Ligation. Denies: Hx Hysterectomy, Hx Mastectomy, Hx Open Heart Surgery, Hx Pacemaker - Immunizations Immunizations up to date: Yes Hx Diphtheria, Pertussis, Tetanus Vaccination: Yes Hx Pneumococcal Vaccination: 06/03/00 Review of Systems - Review of Systems Constitutional: See HPI, Weakness EENT: No symptoms reported Cardiovascular: No symptoms reported Respiratory: No symptoms reported Gastrointestinal: See HPI, Abdominal pain, Nausea, Vomiting Genitourinary: No symptoms reported Female Genitourinary: No symptoms reported Musculoskeletal: No symptoms reported Skin: No symptoms reported Hematologic/Lymphatic: No symptoms reported Neurological/Psychological: No symptoms reported Physical Exam - Vital signs Vitals: Temp Pulse Resp BP Pulse Ox 98.3 F 78 18 140/93 H 99 03/22/20 13:08 03/22/20 13:08 03/22/20 13:08 03/22/20 13:08 03/22/20 13:08 Interpretation: Normal - General General appearance: Appears well, Alert - HEENT Head: Normocephalic, Atraumatic Eyes: Normal Pupils: PERRL - Respiratory Respiratory status: No respiratory distress Chest status: Nontender Breath sounds: Normal Chest palpation: Normal - Cardiovascular Rhythm: Regular Heart sounds: Normal auscultation Murmur: No - Abdominal Inspection: Normal Distension: No distension Bowel sounds: Normal Tenderness: Tender - epigastric Organomegaly: No organomegaly - Rectal Hemorrhoids: Other - deferred - Genitourinary Bimanuel exam: Other - deferred - Back Back: Tender - mid back thoracic pain on p/p - Extremities General upper extremity: Normal inspection, Nontender, Normal color, Normal ROM, Normal temperature General lower extremity: Normal inspection, Nontender, Normal color, Normal ROM, Normal temperature, Normal weight bearing. No: Sandee's sign - Neurological Neuro grossly intact: Yes Cognition: Normal Orientation: AAOx4 Eddie Coma Scale Eye Opening: Spontaneous Whitney Coma Scale Verbal: Oriented Whitney Coma Scale Motor: Obeys Commands Whitney Coma Scale Total: 15 Speech: Normal Motor strength normal: LUE, RUE, LLE, RLE Sensory: Normal - Psychological Associated symptoms: Normal affect, Normal mood - Skin Skin Temperature: Warm Skin Moisture: Dry Skin Color: Normal Course - Vital Signs Vital signs: Temp Pulse Resp BP Pulse Ox 98.3 F 78 18 140/93 H 99 03/22/20 14:37 03/22/20 13:08 03/22/20 13:08 03/22/20 13:08 03/22/20 13:08 - Laboratory Result Diagrams: 03/22/20 16:00 03/22/20 16:00 Laboratory results interpreted by me: 03/22/20 03/22/20 16:00 17:32 Sodium 132.9 L Chloride 90 L Carbon Dioxide 32 H BUN 25 H Creatinine 1.28 H Est GFR ( Amer) 51 L Est GFR (MDRD) Non-Af 43 L Glucose 436 H* Urine Protein 30 H Urine Glucose (UA) >=500 H - Diagnostic Test Radiology reviewed: Reports reviewed Discharge - Discharge Clinical Impression: Epigastric pain, Degenerative joint disease of low back Hyperglycemia due to type 2 diabetes mellitus Qualifiers: Diabetes mellitus 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 intermediary insulin use: unspecified 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 intermediary insulin use status Qualified Code(s): E11.65 - Type 2 diabetes mellitus with hyperglycemia Back pain Qualifiers: Back pain location: thoracic back pain Chronicity: chronic Back pain laterality: midline Qualified Code(s): M54.6 - Pain in thoracic spine; G89.29 - Other chronic pain Condition: Good Disposition: HOME, SELF-CARE Instructions: Abdominal Pain ([facility]) Additional Instructions: Follow-up with your personal doctor this week; return to ER as needed for true emergencies; take medications as directed; encourage fluids and avoid any carbonated sodas drinks that are sweetened with glucose or corn syrup or fructose syrup. Avoid any high calorie foods and try to adhere to a diabetic diet. Try to eat high-fiber foods like bran muffins oatmeal Prescriptions: Glyburide [Diabeta 5 mg Tablet] 5 mg PO QAM #30 tablet Chlorzoxazone [Parafon Forte Dsc 500 Mg Tablet] 500 mg PO BID #20 tablet Pantoprazole Sodium [Protonix [address] Tablet] 20 mg PO QAM #30 tablet.dr Forms: Return to Work Referrals: NATA ROOT MD [Primary Care Provider] - Follow up as needed
--- NOTE | 2020-03-22 17:18 | RADIOLOGY REPORT (SQ) ---
EXAM DESCRIPTION: L SPINE WHOLE IMAGES COMPLETED DATE/TIME: 03/22/2020 5:10 pm REASON FOR STUDY: lower back pain x1 week COMPARISON: 06/24/2018 NUMBER OF VIEWS: Five views including obliques. TECHNIQUE: AP, lateral, oblique, and sacral radiographic images acquired of the lumbar spine. LIMITATIONS: None. FINDINGS: MINERALIZATION: Normal. SEGMENTATION: There are 6 [id number] lumbar vertebral bodies. Partial sacralization of the low[address] st vertebral body. ALIGNMENT: Normal. VERTEBRAE: Maintained height. No fracture or worrisome bone lesion. DISCS: Minimal multilevel endplate and osteophytosis. POSTERIOR ELEMENTS: Mild lower lumbar facet arthropathy. HARDWARE: None in the spine. Cholecystectomy clips. Surgical clips overlie pelvis. PARASPINAL SOFT TISSUES: Vascular calcifications. PELVIS: Intact as visualized. No fractures or worrisome bone lesions. SI joints intact. OTHER: No other significant finding. IMPRESSION: Mild multilevel degenerative change without evidence of acute bony abnormality of the dolores mbar spine. TECHNICAL DOCUMENTATION: JOB ID: [id number] 2010 [employer]- All Rights Reserved Reading location - IP/workstation name: [email or web address]
[2020-03-22] MEDS ORDERED: NORMAL SALINE 1000 ML 1,000 ML IV PRN (17:46)
[2020-03-22] MEDS ORDERED: PANTOPRAZOLE SODIUM 40 MG VIAL IV ONE (17:46)
[2020-03-22] MEDS ORDERED: INSULIN REG, HUMAN 100 UNIT/ML 3 ML VIAL (PYX) IV ONE (17:47)
[2020-03-22] MEDS ORDERED: SUCRALFATE 1 GM TABLET PO ONE (17:48)
[2020-03-22 17:57] LABS: APPEARANCE,URINE SLIGHTLY-CLOUDY; BILIRUBIN,URINE NEGATIVE (NEGATIVE); COLOR,URINE YELLOW; GLUCOSE, URINE >=500 mg/dL (NEGATIVE); KETONES,URINE NEGATIVE (NEGATIVE); LEUKOCYTE ESTERASE,URINE NEGATIVE (NEGATIVE); NITRITE,URINE NEGATIVE (NEGATIVE); PROTEIN,URINE 30 mg/dL (NEGATIVE); URINE SPECIFIC GRAVITY 1.025; UROBILINOGEN,URINE NEGATIVE mg/dL (<2.0)
[2020-03-22 19:04] VITALS: BP 142/85
== END 2020-03-22 19:02 | disposition home or self-care (01) ==
LOC: ER 12:55
DX: M47.816 Spondylosis without myelopathy or radiculopathy, lumbar region (principal); K21.9 Gastro-esophageal reflux disease without esophagitis; R10.13 Epigastric pain; R10.816 Epigastric abdominal tenderness; R11.2 Nausea with vomiting, unspecified; E11.65 Type 2 diabetes mellitus with hyperglycemia; M54.6 Pain in thoracic spine; G89.29 Other chronic pain; R25.2 Cramp and spasm; R53.1 Weakness; I10 Essential (primary) hypertension; Z79.4 Long term (current) use of insulin; Z79.899 Other long term (current) drug therapy; Z87.19 Personal history of other diseases of the digestive system; Z90.49 Acquired absence of other specified parts of digestive tract; Z87.891 Personal history of nicotine dependence; Z88.8 Allergy status to other drugs, medicaments and biological substances; Z91.013 Allergy to seafood; Z91.011 Allergy to milk products; Z91.018 Allergy to other foods; Z91.048 Other nonmedicinal substance allergy status; Z88.6 Allergy status to analgesic agent; Z88.5 Allergy status to narcotic agent
CPT/HCPCS: 99285; 96372; 96361; 96374; 96375; 36415; 82962; 83690; 85025; 80053; 81001; 74022; 72110; J1885; J3490; C9113; J1815; J7030

== ENCOUNTER 2020-04-26 08:15 | Inpatient (IN) | payer BC ==
[2020-04-26] MEDS ORDERED: NORMAL SALINE 1000 ML 1,000 ML IV ONE ×4 (08:48→13:38)
[2020-04-26] MEDS ORDERED: METOCLOPRAMIDE HCL INJ/PF 10 MG/2 ML SDV IV ONE (08:49)
[2020-04-26] MEDS ORDERED: MORPHINE SULFATE 10 MG/ML INJ IV ONE (08:49)
[2020-04-26 09:31] LABS: MEAN CORPUSCULAR HEMOGLOBIN 30.7 pg (27.0-33.4); MEAN CORPUSCULAR HGB CONC 31.1 g/dL (32.0-36.0); MEAN CORPUSCULAR VOLUME 99 fl (80-97); PLATELET COUNT 214 10^3/uL (150-450); RED BLOOD COUNT 4.25 10^6/uL (3.72-5.28); RED CELL DISTRIBUTION WIDTH 14.2 % (11.5-14.0); WHITE BLOOD COUNT 14.6 10^3/uL (4.0-10.5)
[2020-04-26 09:49] LABS: ALBUMIN 4.7 g/dL (3.5-5.0); ALKALINE PHOSPHATASE 115 U/L (38-126); ASPARTATE AMINO TRANSFERASE 23 U/L (14-36); BILIRUBIN,DIRECT 0.4 mg/dL (0.0-0.4); BLOOD UREA NITROGEN 25 mg/dL (7-20); CALCIUM 10.2 mg/dL (8.4-10.2); POTASSIUM 4.6 mmol/L (3.6-5.0); TOTAL PROTEIN 7.2 g/dL (6.3-8.2)
[2020-04-26 09:56] LABS: CHLORIDE 92 mmol/L (98-107)
[2020-04-26 09:58] LABS: ABSOLUTE LYMPHOCYTES# (MANUAL) 0.6 10^3/uL (0.5-4.7); ABSOLUTE MONOCYTES # (MANUAL) 0.1 10^3/uL (0.1-1.4); BAND NEUTROPHILS % (MANUAL) 1 % (3-5); BASOPHILS % (MANUAL) 1 % (0-2); EOSINOPHILS % (MANUAL) 0 % (0-6); LYMPHOCYTES % (MANUAL) 4 % (13-45); MONOCYTES % (MANUAL) 1 % (3-13); SEGMENTED NEUTROPHILS % (MAN) 93 % (42-78); TOTAL CELLS COUNTED 100
[2020-04-26 09:59] LABS: ANISOCYTOSIS SLIGHT; PLATELET COMMENT ADEQUATE
[2020-04-26 11:30] LABS: APPEARANCE,URINE SLIGHTLY-CLOUDY; BILIRUBIN,URINE NEGATIVE (NEGATIVE); COLOR,URINE STRAW; GLUCOSE, URINE >=500 mg/dL (NEGATIVE); KETONES,URINE 80 mg/dL (NEGATIVE); LEUKOCYTE ESTERASE,URINE TRACE (NEGATIVE); NITRITE,URINE NEGATIVE (NEGATIVE); PROTEIN,URINE 30 mg/dL (NEGATIVE); URINE SPECIFIC GRAVITY 1.021; UROBILINOGEN,URINE NEGATIVE mg/dL (<2.0)
[2020-04-26] MEDS ORDERED: INSULIN REG, HUMAN 100 UNIT/ML 3 ML VIAL (PYX) ONE (12:00)
[2020-04-26] MEDS ORDERED: NORMAL SALINE 100 ML with INSULIN REGULAR, HUMAN 100 UNIT IV PRN ×2 (12:21)
[2020-04-26] MEDS ORDERED: CEFTRIAXONE 1 GM/D5W RTU 1 GM/50 ML RTUPB IV ONE (12:24)
--- NOTE | 2020-04-26 12:31 | ER Document Report ---
ED General - General Chief Complaint: High Blood Sugar Stated Complaint: VOMITING/POSSIBLE MEDICATION REACTION Time Seen by Provider: 04/26/20 08:40 Primary Care Provider: NATA ROOT MD [Primary Care Provider] - Follow up as needed Information source: Patient TRAVEL OUTSIDE OF THE [place] IN LAST 30 DAYS: No - HPI Notes: Patient presents complaining of severe nausea vomiting with some diffuse abdominal pain. Also states she has weakness and malaise. Her abdominal pain is been diffuse crampy and burning. Is been constant. Is been moderate. Nothing makes it better or worse. It does radiate throughout her abdomen. She states also that she has recently stopped one of her diabetic medications by advice of her primary care doctor. - Related Data Allergies/Adverse Reactions: ramipril [From Altace] Allergy (Severe, Verified 04/26/20 08:20) Hives triprolidine HCl [From Actifed] Allergy (Severe, Verified 04/26/20 08:20) DOUBLE VISION scallops Allergy (Intermediate, Verified 04/26/20 08:20) Nausea shrimp Allergy (Intermediate, Verified 04/26/20 08:20) VOMITING milk Allergy (Mild, Verified 04/26/20 08:20) Nausea wheat Allergy (Mild, Verified 04/26/20 08:20) Nausea grass pollen Allergy (Unknown, Verified 04/26/20 08:20) hydromorphone [From Dilaudid] Allergy (Verified 04/26/20 08:20) ITCHING lisinopril [Lisinopril] Adverse Reaction (Intermediate, Verified 04/26/20 08:20) COUGHING pregabalin [From Lyrica] Adverse Reaction (Intermediate, Verified 04/26/20 08:20) Nausea Past Medical History - General Information source: Patient - Social History Smoking Status: Current Every Day Smoker Frequency of alcohol use: None Drug Abuse: None Family History: CAD, DM, Hypertension, Malignancy - Colon cancer and leukemia, Other - COPD - Past Medical History Cardiac Medical History: Reports: Hx Hypercholesterolemia, Hx Hypertension Denies: Hx Coronary Artery Disease, Hx Heart Attack Pulmonary Medical History: Reports: Hx Bronchitis, Hx Pneumonia Denies: Hx Asthma, Hx COPD Neurological Medical History: Denies: Hx Cerebrovascular Accident, Hx Migraine, Hx Seizures Endocrine Medical History: Reports: Hx Diabetes Mellitus Type 1, Hx Diabetes Mellitus Type 2. Denies: Hx Hyperthyroidism, Hx Hypothyroidism Renal/ Medical History: Reports: Hx Renal Insufficiency. Denies: Hx Peritoneal Dialysis GI Medical History: Reports: Hx Gastritis, Hx Gastroesophageal Reflux Disease, Hx Irritable Bowel, Hx Ulcer - YEARS AGO. Denies: Hx Cirrhosis, Hx Hepatitis, Hx Hiatal Hernia Musculoskeletal Medical History: Reports Hx Arthritis, Reports Hx Fibromyalgia, Reports Hx Musculoskeletal Deformity Skin Medical History: Denies Hx Eczema, Denies Hx Psoriasis Psychiatric Medical History: Reports: Hx Anxiety, Hx Depression Infectious Medical History: Denies: Hx Hepatitis Past Surgical History: Reports: Hx Appendectomy, Hx Section, Hx Cholecystectomy, Hx Nose Surgery, Hx Oral Surgery, Hx Orthopedic Surgery - L foot, Hx Tonsillectomy - addenoids, Hx Tubal Ligation. Denies: Hx Hysterectomy, Hx Mastectomy, Hx Open Heart Surgery, Hx Pacemaker - Immunizations Immunizations up to date: Yes Hx Diphtheria, Pertussis, Tetanus Vaccination: Yes Hx Pneumococcal Vaccination: 06/03/00 Review of Systems - Review of Systems Constitutional: Malaise, Weakness. denies: Chills, Fever Cardiovascular: denies: Chest pain, Palpitations Respiratory: denies: Cough, Short of breath -: Yes All other systems reviewed and negative Physical Exam - Vital signs Vitals: Temp Pulse Resp BP Pulse Ox 97.5 F 99 20 131/73 H 100 04/26/20 08:31 04/26/20 08:31 04/26/20 08:31 04/26/20 08:31 04/26/20 08:31 Interpretation: Normal - General General appearance: Appears well, Alert - HEENT Head: Normocephalic, Atraumatic Eyes: Normal Pupils: PERRL - Respiratory Respiratory status: No respiratory distress Chest status: Nontender Breath sounds: Normal Chest palpation: Normal - Cardiovascular Rhythm: Regular Heart sounds: Normal auscultation Murmur: No - Abdominal Inspection: Normal Distension: No distension Bowel sounds: Normal Tenderness: Tender - Mild diffuse Organomegaly: No organomegaly - Back Back: Normal, Nontender - Extremities General upper extremity: Normal inspection, Nontender, Normal color, Normal ROM, Normal temperature General lower extremity: Normal inspection, Nontender, Normal color, Normal ROM, Normal temperature, Normal weight bearing. No: Sandee's sign - Neurological Neuro grossly intact: Yes Cognition: Normal Orientation: AAOx4 [place] Coma Scale Eye Opening: Spontaneous [place] Coma Scale Verbal: Oriented [place] Coma Scale Motor: Obeys Commands [place] Coma Scale Total: 15 Speech: Normal Motor strength normal: LUE, RUE, LLE, RLE Sensory: Normal - Psychological Associated symptoms: Normal affect, Normal mood - Skin Skin Temperature: Warm Skin Moisture: Dry Skin Color: Normal Course - Re-evaluation Re-evalutation: 04/26/20 12:33 Patient presents with nausea vomiting abdominal pain. She is in obvious DKA by laboratories. She will be rehydrated and treated with insulin drip. - Vital Signs Vital signs: Temp Pulse Resp BP Pulse Ox 97.5 F 99 22 H 121/74 99 04/26/20 08:31 04/26/20 08:31 04/26/20 13:16 04/26/20 13:16 04/26/20 13:05 - Laboratory Result Diagrams: 04/26/20 09:20 04/26/20 09:12 Laboratory results interpreted by me: 04/26/20 04/26/20 04/26/20 08:29 09:12 09:20 WBC 14.6 H MCV 99 H MCHC 31.1 L RDW 14.2 H Seg Neuts % (Manual) 93 H Band Neutrophils % 1 L Lymphocytes % (Manual) 4 L Monocytes % (Manual) 1 L Abs Neuts (Manual) 13.7 H VBG pH VBG HCO3 Sodium 135.1 L Chloride 92 L Carbon Dioxide 9 L* Anion Gap 33 H BUN 25 H Creatinine 1.42 H Est GFR ( Amer) 46 L Est GFR (MDRD) Non-Af 38 L Glucose 620 H* POC Glucose 545 H* Urine Protein Urine Glucose (UA) Urine Ketones Ur Leukocyte Esterase 04/26/20 04/26/20 04/26/20 10:57 11:45 12:51 WBC MCV MCHC RDW Seg Neuts % (Manual) Band Neutrophils % Lymphocytes % (Manual) Monocytes % (Manual) Abs Neuts (Manual) VBG pH 7.08 L* VBG HCO3 11.6 L Sodium Chloride Carbon Dioxide Anion Gap BUN Creatinine Est GFR ( Amer) Est GFR (MDRD) Non-Af Glucose POC Glucose 533 H* Urine Protein 30 H Urine Glucose (UA) >=500 H Urine Ketones 80 H Ur Leukocyte Esterase TRACE H - EKG Interpretation by Me EKG shows normal: Sinus rhythm Rate: Normal - 97 Rhythm: NSR [place]/QRS: No: Right axis deviation, Left axis deviation Voltage: Consistent with [facility] Critical Care Note - Critical Care Note Total time excluding time spent on procedures (mins): 55 Comments: Approximately 55 minutes of critical care time were spent on this patient. This time were spent during multiple reassessments. It was spent reviewing old records. It was spent reviewing laboratory values. Is spent discussing with consultants and family. Discharge - Discharge Clinical Impression: Diabetic ketoacidosis Qualifiers: Diabetes mellitus type: type 1 Diabetes mellitus complication detail: without coma Qualified Code(s): E10.10 - Type 1 diabetes mellitus with ketoacidosis without coma Condition: Critical Disposition: ADMITTED INPATIENT Admitting Provider: Rubén (Meter Repairer Helper) Unit Admitted: ICU Referrals: NATA ROOT MD [Primary Care Provider] - Follow up as needed
[2020-04-26] MEDS ORDERED: INSULIN REG, HUMAN 100 UNIT/ML 3 ML VIAL (PYX) IV ONE (12:49)
--- NOTE | 2020-04-26 12:53 | EKG REPORT ---
SEVERITY:- ABNORMAL ECG - SINUS RHYTHM BIATRIAL ABNORMALITIES PROBABLE LEFT VENTRICULAR HYPERTROPHY BORDERLINE PROLONGED QT INTERVAL : Confirmed by: Chris Seaman MD 26-Apr-2020 12:53:22
--- NOTE | 2020-04-26 13:25 | RADIOLOGY REPORT (SQ) ---
EXAM DESCRIPTION: CT ABD/PELVIS NO ORAL OR IV IMAGES COMPLETED DATE/TIME: 04/26/2020 1:10 pm REASON FOR STUDY: right flank pain COMPARISON: 11/25/2018 TECHNIQUE: CT scan of the abdomen and pelvis performed without intravenous or oral contrast. Images reviewed with lung, soft tissue, and bone windows. Reconstructed coronal and sagittal MPR images revi ewed. All images stored on PACS. All CT scanners at this facility use dose modulation, iterative reconstruction, and/or weight based d osing when appropriate to reduce radiation dose to as low as reasonably achievable (ALARA). [facility]: Dose Right [facility]: CareDose [facility]: Dose Right [facility]: Teradose 4D [facility]: Smart BaseKit RADIATION DOSE: CT Rad equipment meets quality standard of care and radiation dose reduction techniq ues were employed. CTDIvol: 5.5 mGy. DLP: 277 mGy-cm.mGy. LIMITATIONS: None. FINDINGS: LOWER CHEST: No significant findings. No nodules or infiltrates. NON-CONTRASTED LIVER, SPLEEN, ADRENALS: Evaluation limited by lack of IV contrast. No identified sign ificant masses. Incidental note is again made of focal hypoattenuation in the region of the falcifor m ligament, consistent with focal fatty infiltration. PANCREAS: No masses. No peripancreatic inflammatory changes. GALLBLADDER: Surgically absent. RIGHT KIDNEY AND URETER: No suspicious masses. Assessment limited by lack of IV contrast. No signif icant calcifications. No hydronephrosis or hydroureter. LEFT KIDNEY AND URETER: No suspicious masses. Assessment limited by lack of IV contrast. Incidental note is made of a coarse calcification in a region of cortical scarring. 2 tiny nonobstructing neph roliths are seen within the inferior pole collecting system. No hydronephrosis or hydroureter. AORTA AND RETROPERITONEUM: No aneurysm. No retroperitoneal masses or adenopathy. BOWEL AND PERITONEAL CAVITY: No focal masses or inflammatory changes. No free fluid. Incidental not e is made of gas within a prominent loop of small bowel within the left hemiabdomen. There is no alex dence of volvulus or obstruction. APPENDIX: Surgically absent. PELVIS, BLADDER, AND ABDOMINAL WALL:No abnormal masses. No free fluid. Bladder normal. BONES: No significant findings. OTHER: No other significant finding. IMPRESSION: No evidence of significant urolithiasis or obstructive uropathy. Incidental finding of gaseous distention of a loop of small bowel within the left hemiabdomen is of uncertain etiology or s ignificance, and may represent ileus, early enteritis, or developing small bowel obstruction. No fin dings to correlate with the patient's reported right flank pain. COMMENT: Quality ID # [id number]: Final reports with documentation of one or more dose reduction techniques (e.g., Automated exposure control, adjustment of the mA and/or kV according to patient size, use of iterative reconstruction technique) TECHNICAL DOCUMENTATION: JOB ID: [id number] 2010 [employer]- All Rights Reserved Reading location - IP/workstation name: [email or web address]
[2020-04-26 13:30] LABS: VENOUS BLOOD BASE EXCESS -17.7 mmol/L; VENOUS BLOOD HCO3 11.6 mmol/L (20-32); VENOUS BLOOD PCO2 40.1 mmHg (35-63)
[2020-04-26 13:32] LABS: VENOUS BLOOD PH 7.08 (7.30-7.42)
[2020-04-26 15:04] LABS: ARTERIAL BLOOD BASE EXCESS -18.4 mmol/L; ARTERIAL BLOOD H2CO3 0.82 mmol/L (1.05-1.35); ARTERIAL BLOOD HCO3 9.1 mmol/L (20-24); ARTERIAL BLOOD O2 SATURATION 47.7 % (94-98); ARTERIAL BLOOD PCO2 27.2 mmHg (35-45); ARTERIAL BLOOD TOTAL CO2 9.9 mmol/L (21-25)
[2020-04-26 15:05] LABS: ARTERIAL BLOOD FIO2 ROOM AIR
[2020-04-26 15:06] LABS: ARTERIAL BLOOD PH 7.14 (7.35-7.45)
[2020-04-26 15:07] LABS: ARTERIAL BLOOD PO2 32.7 mmHg (80-100)
--- NOTE | 2020-04-26 16:12 | PDOC CRITICAL CARE PROG REPORT ---
General Date:: 04/26/20 Hospital Day:: 1 Resuscitation Status: Full Code Events in the past 12 to 24 Hours:: DKA likely from a multitude of sources. Review of systems relevant to events:: Endocrine Reason for ICU Addmission:: Evaluation - Medications: Medications reviewed and adjusted accordingly: Yes Vasopressors:: None Sedation:: None Physical Exam Vital Signs: Temp Pulse Resp BP Pulse Ox 97.9 F 99 21 H 129/65 H 100 04/26/20 14:55 04/26/20 08:31 04/26/20 15:01 04/26/20 15:00 04/26/20 15:01 Intake & Output 04/25/20 04/26/20 04/27/20 06:59 06:59 06:59 Intake Total 4053 Balance 4053 Weight 54.5 kg Weight/Height Weight 54.5 kg Height 5 ft 3 in General appearance: PRESENT: no acute distress Head exam: PRESENT: atraumatic, normocephalic Eye exam: PRESENT: other - Glassy eyes Ear exam: PRESENT: normal external ear exam Mouth exam: PRESENT: dry mucosa Respiratory exam: PRESENT: clear to auscultation iglesia. ABSENT: rales, rhonchi, wheezes Cardiovascular exam: PRESENT: RRR. ABSENT: diastolic murmur, rubs, systolic murmur GI/Abdominal exam: PRESENT: normal bowel sounds, soft. ABSENT: distended, guarding, mass, organolmegaly, rebound, tenderness Rectal exam: PRESENT: deferred Extremities exam: PRESENT: full ROM. ABSENT: calf tenderness, clubbing, pedal edema Musculoskeletal exam: PRESENT: normal inspection Neurological exam: PRESENT: alert, awake, oriented to person, oriented to place, oriented to time, oriented to situation, CN II-XII grossly intact. ABSENT: motor sensory deficit Psychiatric exam: PRESENT: appropriate affect, normal mood. ABSENT: homicidal ideation, suicidal ideation Skin exam: PRESENT: dry, intact, warm. ABSENT: cyanosis, rash Laboratory/Radiographs Laboratory Results: 04/26/20 09:20 04/26/20 09:12 04/26/20 04/26/20 04/26/20 09:12 09:20 10:57 WBC 14.6 H RBC 4.25 Hgb 13.0 Hct 42.0 MCV 99 H MCH 30.7 MCHC 31.1 L RDW 14.2 H Plt Count 214 Seg Neutrophils % Not Reportable Carbonic Acid HCO3/H2CO3 Ratio ABG pH ABG pCO2 ABG pO2 ABG HCO3 ABG O2 Saturation ABG Base Excess VBG pH VBG pCO2 VBG HCO3 VBG Base Excess FiO2 Sodium 135.1 L Potassium 4.6 Chloride 92 L Carbon Dioxide 9 L* Anion Gap 33 H BUN 25 H Creatinine 1.42 H Est GFR ( Amer) 46 L Glucose 620 H* Calcium 10.2 Total Bilirubin 1.0 AST 23 Alkaline Phosphatase 115 Total Protein 7.2 Albumin 4.7 Lipase 86.5 Urine Color STRAW Urine Appearance SLIGHTLY-CLOUDY Urine pH 5.0 Ur Specific [place] 1.021 Urine Protein 30 H Urine Glucose (UA) >=500 H Urine Ketones 80 H Urine Blood NEGATIVE Urine Nitrite NEGATIVE Ur Leukocyte Esterase TRACE H Urine WBC (Auto) 16 Urine RBC (Auto) 3 04/26/20 04/26/20 12:51 14:45 WBC RBC Hgb Hct MCV MCH MCHC RDW Plt Count Seg Neutrophils % Carbonic Acid 0.82 L HCO3/H2CO3 Ratio 11:1 ABG pH 7.14 L* ABG pCO2 27.2 L ABG pO2 32.7 L* ABG HCO3 9.1 L ABG O2 Saturation 47.7 L ABG Base Excess -18.4 VBG pH 7.08 L* VBG pCO2 40.1 VBG HCO3 11.6 L VBG Base Excess -17.7 FiO2 ROOM AIR Sodium Potassium Chloride Carbon Dioxide Anion Gap BUN Creatinine Est GFR ( Amer) Glucose Calcium Total Bilirubin AST Alkaline Phosphatase Total Protein Albumin Lipase Urine Color Urine Appearance Urine pH Ur Specific [place] Urine Protein Urine Glucose (UA) Urine Ketones Urine Blood Urine Nitrite Ur Leukocyte Esterase Urine WBC (Auto) Urine RBC (Auto) Impressions: Abdomen/Pelvis CT 04/26/20 12:38 IMPRESSION: No evidence of significant urolithiasis or obstructive uropathy. Incidental finding of gaseous distention of a loop of small bowel within the left hemiabdomen is of uncertain etiology or significance, and may represent ileus, early enteritis, or developing small bowel obstruction. No findings to correlate with the patient's reported right flank pain. EKG: SR, LVH, prolonged QT All labs, radiographs, diagnostic studies and EKGs were personally reviewed: Yes In addition, reports of radiographic and diagnostic studies were read: Yes Assessment and Plan - Diagnosis (1) Diabetic ketoacidosis Qualifiers: Diabetes mellitus type: type 1 Diabetes mellitus complication detail: without coma Qualified Code(s): E10.10 - Type 1 diabetes mellitus with ketoacidosis without coma Is this a current diagnosis for this admission?: Yes Plan: The patient says she is Type 1. She was told Type 2. However she was about 54 yo when diagnosed C/W type 2. She is quite thin C/W Type- 1. Her pH was by VBG 7.08 on presentation about 9A. After 2L her pH also venous is 7.14 much improved and will likely get better faster. She needs more fluid, likely 2-3 more liters. Still nauseous, dont feed yet. The presence of a viral illness is suggested by the recent presence of aphthous ulcers. None seen today. N/V may be do to viral illness or DKA itself. Insulin drip but her BG is rapidly decreasing from 620 to 384. (2) Nausea & vomiting Qualifiers: Vomiting type: bilious vomiting Qualified Code(s): R11.14 - Bilious vomitin g Is this a current diagnosis for this admission?: Yes Plan: Better with antiemetics. Possibly viral.No evidence by labs or CT of pancreatitis. (3) Abdominal pain Qualifiers: Abdominal location: epigastric Qualified Code(s): R10.13 - Epigastric pain Is this a current diagnosis for this admission?: Yes Plan: As above may be viral or DKA. Unknown significance of distended loop of SB. Claims to be constipated. Plan Summary: This patient is quickly improving. Although her pH was low on presentation it is improved now. She does not need an ICU level of care as the treatment will be no different. OK for IMC. Critical Time Critical Time (minutes): 40 Level of Care: IMCU Anticipated discharge: Home Anticipated DC Timeframe: within 48 hours -: 1. The care of a critical patient is a dynamic process. This note is a patient portal representative synopsis but static in nature. The timeframe for treatments given in order is not necessarily the actual time these treatments may have been done. 2. This patient requires critical care secondary to ongoing requirements for therapy not offered or safe outside the critical care environment. Transfer to a lower level of care will result in altered life or limb morbidity and mortality. 3. Multidisciplinary rounds completed. 4. ABCDE bundle addressed.
[2020-04-26 16:57] LABS: ANION GAP 14 (5-19); BLOOD UREA NITROGEN 24 mg/dL (7-20); CALCIUM 8.1 mg/dL (8.4-10.2); CARBON DIOXIDE 15 mmol/L (22-30); CHLORIDE 110 mmol/L (98-107); GLUCOSE 327 mg/dL (75-110); POTASSIUM 3.7 mmol/L (3.6-5.0)
[2020-04-26] MEDS ORDERED: GLUCAGON,HUMAN RECOMB 1 MG INJ IM PRN ×2 (18:19→18:23)
[2020-04-26] MEDS ORDERED: DEXTROSE 50%-WATER 25 GM/50 ML DISP.SYRIN IV PRN ×4 (18:19→18:23)
[2020-04-26] MEDS ORDERED: DEXTROSE 40% GEL 15 GM TUBE PO PRN ×4 (18:19→18:23)
[2020-04-26] MEDS ORDERED: NORMAL SALINE 1000 ML 1,000 ML IV PRN (18:19)
[2020-04-26] MEDS ORDERED: VALACYCLOVIR HCL 1000 MG PO SCH (19:30)
[2020-04-26] MEDS ORDERED: [UNRECOGNIZED DRUG - OTHER] SUBCUT SCH (19:30)
[2020-04-26] MEDS: NORMAL SALINE 100 ML with INSULIN REGULAR, HUMAN 100 UNIT IV PRN ×2 (19:30)
[2020-04-26] MEDS ORDERED: (PENDING PHARMACY ID) (Multivitamin [Multiple Vitamins] 1 EACH Tablet) PO SCH (19:30)
[2020-04-26] MEDS ORDERED: INSULIN DEGLUDEC 200 UNIT/ML SUBCUT SCH (19:30)
[2020-04-26] MEDS ORDERED: INSULN SUBCUT SCH (19:30)
[2020-04-26] MEDS ORDERED: LACTOBACILLUS ACIDOPHILUS 460 MG PO SCH (19:30)
[2020-04-26] MEDS: HYDROCODONE/ACETAMINOPHEN 7.5-325 MG TABLET PO PRN (20:30)
[2020-04-26] MEDS: ONDANSETRON HCL 8 MG TABLET PO SCH (20:31)
[2020-04-26] MEDS: CETIRIZINE 10 MG TABLET PO SCH (20:31)
[2020-04-26] MEDS: PANTOPRAZOLE SODIUM 40 MG TABLET.DR PO SCH (20:31)
[2020-04-26] MEDS: MULTIVITAMIN TABLET PO SCH (20:32)
[2020-04-26] MEDS: SERTRALINE HCL 50 MG TABLET PO SCH (20:32)
[2020-04-26] MEDS: METOPROLOL SUCCINATE 50 MG TAB.SR.24H PO SCH (20:32)
[2020-04-26] MEDS: LACTOBACILLUS ACIDOPHILUS 250 MG TAB PO SCH (20:32)
[2020-04-26] MEDS: BUSPIRONE HCL 10 MG TABLET PO SCH (20:32)
[2020-04-26 20:38] LABS: ANION GAP 16 (5-19); BLOOD UREA NITROGEN 24 mg/dL (7-20); CALCIUM 7.9 mg/dL (8.4-10.2); CARBON DIOXIDE 15 mmol/L (22-30); CHLORIDE 108 mmol/L (98-107); GLUCOSE 326 mg/dL (75-110); POTASSIUM 4.3 mmol/L (3.6-5.0)
[2020-04-26] MEDS: PREGABALIN 75 MG CAPSULE PO SCH (21:50)
[2020-04-26] MEDS: VALACYCLOVIR HCL 500 MG TABLET PO SCH (21:50)
--- NOTE | 2020-04-26 22:15 | PDOC H&P ---
History of Present Illness Admission Date/PCP: 04/26/20 14:12 NATA ROOT MD History of Present Illness: ZEYAD NEGRO is a 60 year old female, I saw patient yesterday in the office when she came for evaluation of a aphthous ulcer in the roof of the mouth, culture was taken she was empirically 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 She came to the emergency room for evaluation of abdominal pain and vomiting. In the emergency room she underwent a CAT scan of the abdomen and pelvis with no contrast, It demonstrated no evidence of significant urolithiasis or obstructive uropathy, there was incidental finding of gaseous distention of a loop of small bowel within the left hemiabdomen of uncertain etiology or significance.Potential diagnosis could be ileus, early enteritis or developing small bowel obstruction, the CAT scan was done in the emergency room essentially for evaluation of right flank pain, the ED provider has seems to be considering kidney stone as a potential etiology of her symptoms. She was also found to be in DKA, Diabetic ketoacidosis Past Medical History Cardiac Medical History: Reports: Hyperlipidema, Hypertension Pulmonary Medical History: Reports: Bronchitis, Pneumonia Endocrine Medical History: Reports: Diabetes Mellitus Type 1 GI Medical History: Reports: Gastroesophageal Reflux Disease Musculoskeltal Medical History: Reports: Arthritis, Fibromyalgia Psychiatric Medical History: Reports: Depression Past Surgical History Past Surgical History: Reports: Appendectomy, Section, Cholecystectomy, Orthopedic Surgery - L foot, Tonsillectomy - addenoids, Tubal Ligation Social History Smoking Status: Former Smoker Frequency of Alcohol Use: None Hx Recreational Drug Use: Yes Drugs: Marijuana Hx Prescription Drug Abuse: No - Advance Directive Resuscitation Status: Full Code Family History Family History: CAD, DM, Hypertension, Malignancy - Colon cancer and leukemia, Other - COPD Parental Family History Reviewed: Yes Children Family History Reviewed: Yes Sibling(s) Family History Reviewed.: Yes Medication/Allergy Home Medications: Sertraline HCl [Zoloft 50 mg Tablet] 50 mg PO DAILY 06/02/18 Hydrochlorothiazide [Hydrodiuril 25 mg Tablet] 25 mg PO QAM tablet 06/03/18 Buspirone HCl [Buspar 10 mg Tablet] 10 mg PO BID 11/24/18 Insulin Aspart [Novolog Insulin (Aspart) 100 unit/mL] 0 units SQ .PERSLIDINGSCALE 11/24/18 Metoprolol Succinate [Toprol Xl 50 mg Tab.sr] 50 mg PO DAILY 11/24/18 Pantoprazole Sodium [Protonix [address] Tablet] 40 mg PO DAILY 03/02/19 Chlorzoxazone [Parafon Forte Dsc 500 Mg Tablet] 500 mg PO BID #20 tablet 03/22/20 Glyburide [Diabeta 5 mg Tablet] 5 mg PO QAM #30 tablet 03/22/20 Cetirizine HCl 20 mg PO DAILY MDD 30MG 04/26/20 Hydrocodone/Acetaminophen [Greeley 7.5-325 Tablet] 1 tab PO Q6HP PRN 04/26/20 Insulin Degludec [Tresiba Flextouch U-200] 20 units SQ DAILY 04/26/20 Lactobacillus Acidophilus [Florajen] 460 mg PO DAILY 04/26/20 Multivitamin [Multiple Vitamins] 1 tab PO DAILY 04/26/20 Ondansetron HCl [Zofran] 4 mg PO BID 04/26/20 Pregabalin [Lyrica 75 mg Capsule] 75 mg PO BID 04/26/20 Valacyclovir HCl [Valacyclovir] 1,000 mg PO BID 04/26/20 Allergies/Adverse Reactions: ramipril [From Altace] Allergy (Severe, Verified 04/26/20 08:20) Hives triprolidine HCl [From Actifed] Allergy (Severe, Verified 04/26/20 08:20) DOUBLE VISION scallops Allergy (Intermediate, Verified 04/26/20 08:20) Nausea shrimp Allergy (Intermediate, Verified 04/26/20 08:20) VOMITING milk Allergy (Mild, Verified 04/26/20 08:20) Nausea wheat Allergy (Mild, Verified 04/26/20 08:20) Nausea grass pollen Allergy (Unknown, Verified 04/26/20 08:20) hydromorphone [From Dilaudid] Allergy (Verified 04/26/20 08:20) ITCHING lisinopril [Lisinopril] Adverse Reaction (Intermediate, Verified 04/26/20 08:20) COUGHING pregabalin [From Lyrica] Adverse Reaction (Intermediate, Verified 04/26/20 08:20) Nausea Review of Systems Constitutional: ABSENT: chills, fever(s), headache(s), weight gain, weight loss Eyes: ABSENT: visual disturbances Ears: ABSENT: hearing changes Cardiovascular: ABSENT: chest pain, dyspnea on exertion, edema, orthropnea, palpitations Respiratory: ABSENT: cough, hemoptysis Gastrointestinal: PRESENT: abdominal pain, vomiting. ABSENT: constipation, diarrhea, hematemesis, hematochezia, nausea Genitourinary: ABSENT: dysuria, hematuria Musculoskeletal: ABSENT: joint swelling Integumentary: ABSENT: rash, wounds Neurological: ABSENT: abnormal gait, abnormal speech, confusion, dizziness, focal weakness, syncope Psychiatric: ABSENT: anxiety, depression, homidical ideation, suicidal ideation Endocrine: ABSENT: cold intolerance, heat intolerance, menstrual abnormalities, polydipsia, polyuria Hematologic/Lymphatic: ABSENT: easy bleeding, easy bruising, lymphadenopathy Physical Exam Vital Signs: Temp Pulse Resp BP Pulse Ox 98.9 F 102 H 17 128/68 H 100 04/26/20 18:15 04/26/20 18:15 04/26/20 18:15 04/26/20 18:15 04/26/20 18:15 Intake & Output 04/25/20 04/26/20 04/27/20 06:59 06:59 06:59 Intake Total 4096 Balance 4096 Weight 60.4 kg General appearance: PRESENT: no acute distress Head exam: PRESENT: atraumatic, normocephalic Eye exam: PRESENT: PERRLA Ear exam: PRESENT: normal external ear exam Mouth exam: PRESENT: other - ulcer in the roof of the mouth Neck exam: PRESENT: full ROM Respiratory exam: PRESENT: clear to auscultation iglesia Cardiovascular exam: PRESENT: RRR, +S1, +S2 Vascular exam: PRESENT: normal capillary refill GI/Abdominal exam: PRESENT: normal bowel sounds, soft Rectal exam: PRESENT: deferred Neurological exam: PRESENT: alert, CN II-XII grossly intact Psychiatric exam: PRESENT: appropriate affect, normal mood Skin exam: PRESENT: dry, intact, warm Results Laboratory Results: 04/26/20 09:20 04/26/20 16:31 04/26/20 04/26/20 04/26/20 09:12 09: 10:57 WBC 14.6 H RBC 4.25 Hgb 13.0 Hct 42.0 MCV 99 H MCH 30.7 MCHC 31.1 L RDW 14.2 H Plt Count 214 Seg Neutrophils % Not Reportable Carbonic Acid HCO3/H2CO3 Ratio ABG pH ABG pCO2 ABG pO2 ABG HCO3 ABG O2 Saturation ABG Base Excess VBG pH VBG pCO2 VBG HCO3 VBG Base Excess FiO2 Sodium 135.1 L Potassium 4.6 Chloride 92 L Carbon Dioxide 9 L* Anion Gap 33 H BUN 25 H Creatinine 1.42 H Est GFR ( Amer) 46 L Glucose 620 H* Calcium 10.2 Total Bilirubin 1.0 AST 23 Alkaline Phosphatase 115 Total Protein 7.2 Albumin 4.7 Lipase 86.5 Urine Color STRAW Urine Appearance SLIGHTLY-CLOUDY Urine pH 5.0 Ur Specific [place] 1.021 Urine Protein 30 H Urine Glucose (UA) >=500 H Urine Ketones 80 H Urine Blood NEGATIVE Urine Nitrite NEGATIVE Ur Leukocyte Esterase TRACE H Urine WBC (Auto) 16 Urine RBC (Auto) 3 04/26/20 04/26/20 04/26/20 12:51 14:45 16:21 WBC RBC Hgb Hct MCV MCH MCHC RDW Plt Count Seg Neutrophils % Carbonic Acid 0.82 L HCO3/H2CO3 Ratio 11:1 ABG pH 7.14 L* ABG pCO2 27.2 L ABG pO2 32.7 L* ABG HCO3 9.1 L ABG O2 Saturation 47.7 L ABG Base Excess -18.4 VBG pH 7.08 L* VBG pCO2 40.1 VBG HCO3 11.6 L VBG Base Excess -17.7 FiO2 ROOM AIR Sodium 138.7 Potassium 4.3 Chloride 108 H Carbon Dioxide 15 L Anion Gap 16 BUN 24 H Creatinine 1.03 Est GFR ( Amer) > 60 Glucose 326 H Calcium 7.9 L Total Bilirubin AST Alkaline Phosphatase Total Protein Albumin Lipase Urine Color Urine Appearance Urine pH Ur Specific [place] Urine Protein Urine Glucose (UA) Urine Ketones Urine Blood Urine Nitrite Ur Leukocyte Esterase Urine WBC (Auto) Urine RBC (Auto) 04/26/20 16:31 WBC RBC Hgb Hct MCV MCH MCHC RDW Plt Count Seg Neutrophils % Carbonic Acid HCO3/H2CO3 Ratio ABG pH ABG pCO2 ABG pO2 ABG HCO3 ABG O2 Saturation ABG Base Excess VBG pH VBG pCO2 VBG HCO3 VBG Base Excess FiO2 Sodium 139.4 Potassium 3.7 Chloride 110 H Carbon Dioxide 15 L Anion Gap 14 BUN 24 H Creatinine 1.07 Est GFR ( Amer) > 60 Glucose 327 H Calcium 8.1 L Total Bilirubin AST Alkaline Phosphatase Total Protein Albumin Lipase Urine Color Urine Appearance Urine pH Ur Specific [place] Urine Protein Urine Glucose (UA) Urine Ketones Urine Blood Urine Nitrite Ur Leukocyte Esterase Urine WBC (Auto) Urine RBC (Auto) Impressions: Abdomen/Pelvis CT 04/26/20 12:38 IMPRESSION: No evidence of significant urolithiasis or obstructive uropathy. Incidental finding of gaseous distention of a loop of small bowel within the left hemiabdomen is of uncertain etiology or significance, and may represent ileus, early enteritis, or developing small bowel obstruction. No findings to correlate with the patient's reported right flank pain. Assessment & Plan - Diagnosis (1) Type 1 diabetes mellitus with ketoacidosis without coma Is this a current diagnosis for this admission?: Yes Plan: She has type 1 diabetes mellitus presently in ketoacidosis, continue insulin in fusion, monitor anion gap every 4 hours, Accu-Chek every 1 hour, once anion gap is below 12 we will transition Insulin infusion to basal-bolus regimen (2) Abdominal pain Qualifiers: Abdominal location: unspecified location Qualified Code(s): R10.9 - Unspecified abdominal pain Is this a current diagnosis for this admission?: Yes Plan: She has abdominal pain the CAT scan that was obtained in the emergency room demonstrated evidence of widening of gaseous distention of a loop of small bowel within the left hemiabdomen of Unknown etiology or significance, it may represe nt ileus, early enteritis or small bowel obstruction.Patient may require upper GI series once DKA is resolved - Time Time Spent: Greater than 70 Minutes Medications reviewed and adjusted accordingly: Yes Anticipated Discharge Disposition: Home, Self Care Anticipated Discharge Timeframe: within 72 hours
[2020-04-26 23:16] LABS: ANION GAP 5 (5-19); BLOOD UREA NITROGEN 23 mg/dL (7-20); CALCIUM 8.7 mg/dL (8.4-10.2); CARBON DIOXIDE 23 mmol/L (22-30); CHLORIDE 109 mmol/L (98-107); GLUCOSE 118 mg/dL (75-110); POTASSIUM 3.6 mmol/L (3.6-5.0)
[2020-04-27] MEDS ORDERED: DEXTROSE 5%-NORMAL SALINE 1,000 ML IV PRN (02:48)
[2020-04-27] MEDS: NORMAL SALINE 100 ML with INSULIN REGULAR, HUMAN 100 UNIT IV PRN ×2 (03:25)
[2020-04-27] MEDS ORDERED: INSULIN GLARGINE,HUM.REC.ANLOG 1,000 UNIT/10 ML VIAL (PYX) SUBCUT ONE (04:15)
[2020-04-27 07:25] LABS: ANION GAP 6 (5-19); BLOOD UREA NITROGEN 21 mg/dL (7-20); CALCIUM 8.6 mg/dL (8.4-10.2); CARBON DIOXIDE 25 mmol/L (22-30); CHLORIDE 110 mmol/L (98-107); GLUCOSE 125 mg/dL (75-110); POTASSIUM 3.9 mmol/L (3.6-5.0)
[2020-04-27] MEDS: PREGABALIN 75 MG CAPSULE PO SCH ×2 (09:16→21:48)
[2020-04-27] MEDS: VALACYCLOVIR HCL 500 MG TABLET PO SCH ×2 (09:16→21:48)
[2020-04-27] MEDS: PANTOPRAZOLE SODIUM 40 MG TABLET.DR PO SCH (09:17)
[2020-04-27] MEDS: ONDANSETRON HCL 8 MG TABLET PO SCH ×2 (09:17→17:51)
[2020-04-27] MEDS: BUSPIRONE HCL 10 MG TABLET PO SCH ×2 (09:17→17:52)
[2020-04-27] MEDS: CETIRIZINE 10 MG TABLET PO SCH (09:17)
[2020-04-27] MEDS: MULTIVITAMIN TABLET PO SCH (09:17)
[2020-04-27] MEDS: METOPROLOL SUCCINATE 50 MG TAB.SR.24H PO SCH (09:17)
[2020-04-27] MEDS: SERTRALINE HCL 50 MG TABLET PO SCH (09:17)
[2020-04-27] MEDS: LACTOBACILLUS ACIDOPHILUS 250 MG TAB PO SCH (09:17)
[2020-04-27 10:31] LABS: GLUCOSE 620 mg/dL (75-110)
[2020-04-27 10:32] LABS: ANION GAP 34 (5-19); CARBON DIOXIDE 9 mmol/L (22-30)
[2020-04-27 10:57] LABS: ANION GAP 6 (5-19); BLOOD UREA NITROGEN 19 mg/dL (7-20); CALCIUM 8.2 mg/dL (8.4-10.2); CARBON DIOXIDE 25 mmol/L (22-30); CHLORIDE 105 mmol/L (98-107); GLUCOSE 205 mg/dL (75-110); POTASSIUM 3.8 mmol/L (3.6-5.0)
[2020-04-27] MEDS: NORMAL SALINE 1000 ML 1,000 ML IV PRN (11:39)
[2020-04-27] MEDS: INSULIN LISPRO 100 UNIT/ML 3 ML VIAL SUBCUT SCH ×3 (11:41→21:52)
[2020-04-27] MEDS: HYDROCODONE/ACETAMINOPHEN 7.5-325 MG TABLET PO PRN ×2 (11:41→17:52)
[2020-04-27 16:36] LABS: ANION GAP 5 (5-19); BLOOD UREA NITROGEN 16 mg/dL (7-20); CALCIUM 8.1 mg/dL (8.4-10.2); CARBON DIOXIDE 23 mmol/L (22-30); CHLORIDE 104 mmol/L (98-107); GLUCOSE 108 mg/dL (75-110); POTASSIUM 3.5 mmol/L (3.6-5.0)
--- NOTE | 2020-04-27 18:26 | PDOC PROGRESS REPORT ---
Subjective Date:: 04/27/20 Subjective:: Patient seen by the bedside, DKA is resolved, still complaining of pain in the a bdomen Reason For Visit: DKA Physical Exam Vital Signs: Temp Pulse Resp BP Pulse Ox 98.0 F 73 18 102/75 94 04/27/20 15:54 04/27/20 15:54 04/27/20 15:54 04/27/20 15:54 04/27/20 15:54 Intake & Output 04/26/20 04/27/20 04/28/20 06:59 06:59 06:59 Intake Total 4497 1030 Balance 4497 1030 Weight 61.4 kg 61.4 kg General appearance: PRESENT: no acute distress Eye exam: PRESENT: PERRLA Respiratory exam: PRESENT: clear to auscultation iglesia Cardiovascular exam: PRESENT: +S1, +S2 GI/Abdominal exam: PRESENT: soft Neurological exam: PRESENT: alert, CN II-XII grossly intact Results Laboratory Results: 04/26/20 09:20 04/27/20 15:08 04/26/20 04/26/20 04/26/20 09:12 16:21 16:31 Sodium 138.7 139.4 Potassium 4.3 3.7 Chloride 108 H 110 H Carbon Dioxide 9 L* 15 L 15 L Anion Gap 34 H 16 14 BUN 24 H 24 H Creatinine 1.03 1.07 Est GFR ( Amer) > 60 > 60 Glucose 620 H* 326 H 327 H Calcium 7.9 L 8.1 L 04/26/20 04/27/20 04/27/20 22:34 06:15 10:13 Sodium 136.8 L 141.2 135.9 L Potassium 3.6 3.9 3.8 Chloride 109 H 110 H 105 Carbon Dioxide 23 25 25 Anion Gap 5 6 6 BUN 23 H 21 H 19 Creatinine 0.98 0.97 0.81 Est GFR ( Amer) > 60 > 60 > 60 Glucose 118 H 125 H 205 H Calcium 8.7 8.6 8.2 L 04/27/20 15:08 Sodium 131.5 L Potassium 3.5 L Chloride 104 Carbon Dioxide 23 Anion Gap 5 BUN 16 Creatinine 0.94 Est GFR ( Amer) > 60 Glucose 108 Calcium 8.1 L Impressions: Abdomen/Pelvis CT 04/26/20 12:38 IMPRESSION: No evidence of significant urolithiasis or obstructive uropathy. Incidental finding of gaseous distention of a loop of small bowel within the left hemiabdomen is of uncertain etiology or significance, and may represent ileus, early enteritis, or developing small bowel obstruction. No findings to correlate with the patient's reported right flank pain. Assessment & Plan - Diagnosis (1) Type 1 diabetes mellitus with ketoacidosis without coma Is this a current diagnosis for this admission?: Yes Plan: DKA is resolved (2) Abdominal pain Qualifiers: Abdominal location: unspecified location Qualified Code(s): R10.9 - Unspecified abdominal pain Is this a current diagnosis for this admission?: Yes Plan: The CAT scan of the abdomen that was done yesterday demonstrated gaseous distention of a loop of small bowel within the small hemiabdomen the significance of this finding is not clear, upper GI series with contrast will be obtained - Time Time Spent with patient: 25-34 minutes Level of Care: TELE Medications reviewed and adjusted accordingly: Yes Anticipated discharge: Home Anticipated DC Timeframe: within 72 hours
[2020-04-27 23:02] LABS: ANION GAP 6 (5-19); BLOOD UREA NITROGEN 17 mg/dL (7-20); CALCIUM 8.6 mg/dL (8.4-10.2); CARBON DIOXIDE 23 mmol/L (22-30); CHLORIDE 101 mmol/L (98-107); GLUCOSE 200 mg/dL (75-110); POTASSIUM 3.8 mmol/L (3.6-5.0)
--- NOTE | 2020-04-27 23:46 | RADIOLOGY REPORT (SQ) ---
EXAM DESCRIPTION: CT ABDOMEN PELVIS WITH IV CONTRAST COMPLETED DATE/TME: 04/27/2020 23:11 CLINICAL HISTORY: Diffuse abdominal pain COMPARISON: 04/26/2020 TECHNIQUE: CT of the abdomen and pelvis performed following IV administration of 66 mL Omnipaque 350. ] Oral contrast administered. FINDINGS: Lung Bases: The visualized lung bases are clear. Bones: Degenerative endplate spondylosis. Abdomen: Liver: The liver has normal size and density. Dilation and dilation of the common bile duct measuring 1.0 cm. Minimal intrahepatic biliary dilatation. This may be related to prior cholecystectomy.. Gallbladder: No calcified gallstones. Spleen, Pancreas, and Adrenal Glands: The spleen, pancreas, and adrenal glands are unremarkable. Kidneys: No hydronephrosis or obstructing calculus. Mild superior pole cortical thinning and calcification likely representing scar. Vasculature: Aortoiliac atherosclerosis. IVC is unremarkable. The portal vein is patent. The proximal visceral and renal arteries are patent. Stomach: The stomach and duodenum have normal course. Other: No free intraperitoneal air. No free fluid or lymphadenopathy. Pelvis: Bladder: Urinary bladder is unremarkable. Bowel: No dilated loops of large or small bowel. Appendix: Prior appendectomy. Pelvis: Uterus is not enlarged. IMPRESSION: 1. No acute inflammatory or obstructive process identified. This exam was performed according to our departmental dose-optimization program, which includes automated exposure control, adjustment of the mA and/or kV according to patient size and/or use of iterative reconstruction technique.
[2020-04-28] MEDS: NORMAL SALINE 1000 ML 1,000 ML IV PRN ×2 (01:30→11:51)
[2020-04-28] MEDS: HYDROCODONE/ACETAMINOPHEN 7.5-325 MG TABLET PO PRN ×2 (01:34→10:41)
[2020-04-28 05:57] LABS: ANION GAP 5 (5-19); BLOOD UREA NITROGEN 14 mg/dL (7-20); CALCIUM 8.2 mg/dL (8.4-10.2); CARBON DIOXIDE 24 mmol/L (22-30); CHLORIDE 105 mmol/L (98-107); GLUCOSE 113 mg/dL (75-110); POTASSIUM 3.4 mmol/L (3.6-5.0)
[2020-04-28] MEDS: INSULIN LISPRO 100 UNIT/ML 3 ML VIAL SUBCUT SCH ×3 (08:28→16:09)
[2020-04-28 08:50] LABS: BLOOD UREA NITROGEN 12 mg/dL (7-20); CALCIUM 8.4 mg/dL (8.4-10.2); GLUCOSE 76 mg/dL (75-110); POTASSIUM 3.7 mmol/L (3.6-5.0)
[2020-04-28 09:00] LABS: CARBON DIOXIDE 26 mmol/L (22-30); CHLORIDE 104 mmol/L (98-107)
[2020-04-28 09:03] LABS: ANION GAP 6 (5-19)
[2020-04-28] MEDS: VALACYCLOVIR HCL 500 MG TABLET PO SCH (10:40)
[2020-04-28] MEDS: MULTIVITAMIN TABLET PO SCH (10:40)
[2020-04-28] MEDS: LACTOBACILLUS ACIDOPHILUS 250 MG TAB PO SCH (10:40)
[2020-04-28] MEDS: BUSPIRONE HCL 10 MG TABLET PO SCH (10:40)
[2020-04-28] MEDS: METOPROLOL SUCCINATE 50 MG TAB.SR.24H PO SCH (10:40)
[2020-04-28] MEDS: PREGABALIN 75 MG CAPSULE PO SCH (10:41)
[2020-04-28] MEDS: ONDANSETRON HCL 8 MG TABLET PO SCH (10:41)
[2020-04-28] MEDS: PANTOPRAZOLE SODIUM 40 MG TABLET.DR PO SCH (10:41)
[2020-04-28] MEDS: SERTRALINE HCL 50 MG TABLET PO SCH (10:41)
[2020-04-28] MEDS: CETIRIZINE 10 MG TABLET PO SCH (10:41)
[2020-04-28 12:20] LABS: ANION GAP 6 (5-19); BLOOD UREA NITROGEN 10 mg/dL (7-20); CALCIUM 8.1 mg/dL (8.4-10.2); CARBON DIOXIDE 24 mmol/L (22-30); CHLORIDE 101 mmol/L (98-107); GLUCOSE 169 mg/dL (75-110); POTASSIUM 3.7 mmol/L (3.6-5.0)
--- NOTE | 2020-04-28 14:33 | RADIOLOGY REPORT (SQ) ---
EXAM DESCRIPTION: BARIUM SWALLOW ESOPHAGUS IMAGES COMPLETED DATE/TIME: 04/28/2020 2:25 pm REASON FOR STUDY: dysphagia COMPARISON: None. TECHNIQUE: Under fluoroscopic guidance, patient ingested effervescent granules followed by thick and thin barium. Fluoroscopic spot images and routine radiographic images acquired and stored on PACS. 12 MM BARIUM TABLET GIVEN: Barium tablet passed through the esophagus and into the stomach without de lay. LIMITATIONS: None. FLUOROSCOPY TIME: FLUORO TIME: 2.7 minutes. 7 images saved to PACS. FINDINGS: NEUROMUSCULAR COORDINATION OF SWALLOW: Normal. No aspiration. ESOPHAGEAL MOTILITY: Mild esophageal dysmotility. No esophageal spasm. ESOPHAGEAL MUCOSA: Normal mucosa without masses or ulceration. GASTRO-ESOPHAGEAL JUNCTION: No hiatal hernia or reflux. NON-GI TRACT STRUCTURES: No significant finding. OTHER: No other significant finding. IMPRESSION: MILD ESOPHAGEAL DYSMOTILITY. OTHERWISE UNREMARKABLE STUDY. RECOMMENDATION: None COMMENT: None Quality ID [id number]: Final reports for procedures using fluoroscopy that document radiation exposure lindy altagracia, or exposure time and number of fluorographic images (if radiation exposure indices are not avail able) TECHNICAL DOCUMENTATION: JOB ID: [id number] 2010 [employer]- All Rights Reserved Reading location - IP/workstation name: [email or web address] [id number]
[2020-04-28 15:43] VITALS: BP 128/68
--- NOTE | 2020-04-28 15:45 | PDOC DISCHARGE SUMMARY ---
Impression - Admit/DC Date/PCP Admission Date/Primary Care Provider: 04/26/20 14:12 NATA ROOT MD Discharge Date: 04/28/20 - Discharge Diagnosis (1) Type 1 diabetes mellitus with ketoacidosis without coma Is this a current diagnosis for this admission?: Yes (2) Abdominal pain Is this a current diagnosis for this admission?: Yes - Additional Information Resuscitation Status: Full Code Referrals: NATA ROOT MD [Primary Care Provider] - Follow up as needed Home Medications: RX: Sertraline HCl [Zoloft 50 mg Tablet] 50 mg PO DAILY 06/02/18 RX: Hydrochlorothiazide [Hydrodiuril 25 mg Tablet] 25 mg PO QAM tablet 06/03/18 RX: Buspirone HCl [Buspar 10 mg Tablet] 10 mg PO BID 11/24/18 RX: Insulin Aspart [Novolog Insulin (Aspart) 100 unit/mL] 0 units SQ .PERSLIDINGSCALE 11/24/18 RX: Metoprolol Succinate [Toprol Xl 50 mg Tab.sr] 50 mg PO DAILY 11/24/18 RX: Pantoprazole Sodium [Protonix [address] Tablet] 40 mg PO DAILY 03/02/19 RX: Chlorzoxazone [Parafon Forte Dsc 500 mg Tablet] 500 mg PO BID #20 tablet 03/22/20 RX: Cetirizine HCl 20 mg PO DAILY MDD 30MG 04/26/20 RX: Hydrocodone/Acetaminophen [Moville 7.5-325 Tablet] 1 tab PO Q6HP PRN 04/26/20 RX: Insulin Degludec [Tresiba Flextouch U-200] 20 units SQ DAILY 04/26/20 RX: Lactobacillus Acidophilus [Florajen] 460 mg PO DAILY 04/26/20 RX: Multivitamin [Multiple Vitamins] 1 tab PO DAILY 04/26/20 RX: Ondansetron HCl [Zofran] 4 mg PO BID 04/26/20 RX: Pregabalin [Lyrica 75 mg Capsule] 75 mg PO BID 04/26/20 RX: Valacyclovir HCl [Valacyclovir] 1,000 mg PO BID 04/26/20 History of Present Illiness History of Present Illness: ZEYAD NEGRO is a 60 year old female, I saw patient yesterday in the office when she came for evaluation of a aphthous ulcer in the roof of the mouth, culture was taken she was empirically 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 She came to the emergency room for evaluation of abdominal pain and vomiting. In the emergency room she underwent a CAT scan of the abdomen and pelvis with no contrast, It demonstrated no evidence of significant urolithiasis or obstructive uropathy, there was incidental finding of gaseous distention of a loop of small bowel within the left hemiabdomen of uncertain etiology or si gnificance.Potential diagnosis could be ileus, early enteritis or developing small bowel obstruction, the CAT scan was done in the emergency room essentially for evaluation of right flank pain, the ED provider has seems to be considering kidney stone as a potential etiology of her symptoms. She was also found to be in DKA, Diabetic ketoacidosis Hospital Course Hospital Course: Patient was admitted for the management of diabetic ketoacidosis, she was treated with insulin infusion, she has type 1 diabetes mellitus. She is extremely noncompliant with the management of her diabetes, she does not follow recommended guidelines, she does not count calories, she was referred to follow with endocrinology with her diabetes.When she presented to the emergency room with abdominal pain, kidney stone was suspected, CT scan of the abdomen for kidney stone protocol was obtained, there was no urolithiasis demonstrated but there was distended bowel with gas, the significance of this finding was not clear, because of these findings, a CAT scan of the abdomen and pelvis with contrast was obtained and this was negative for any acute pathology., This morning she complain of dysphagia, barium swallow was obtained, it was negative for any stricture or masses. Patient is not in DKA at this time she be discharged home today Physical Exam Vital Signs: Temp Pulse Resp BP Pulse Ox 98.1 F 78 13 180/102 H 97 04/28/20 11:03 04/28/20 11:03 04/28/20 11:03 04/28/20 11:03 04/28/20 11:03 Intake & Output 04/27/20 04/28/20 04/29/20 06:59 06:59 06:59 Intake Total 4496 2029 1000 Balance 4496 2029 1000 Weight 61.4 kg 61.4 kg General appearance: PRESENT: no acute distress Eye exam: PRESENT: PERRLA Respiratory exam: PRESENT: clear to auscultation iglesia Cardiovascular exam: PRESENT: +S1, +S2 GI/Abdominal exam: PRESENT: soft Neurological exam: PRESENT: alert, CN II-XII grossly intact Results Laboratory Results: WBC 14.6 10^3/uL (4.0-10.5) H 04/26/20 09:20 RBC 4.25 10^6/uL (3.72-5.28) 04/26/20 09:20 Hgb 13.0 g/dL (12.0-15.5) 04/26/20 09:20 Hct 42.0 % (36.0-47.0) 04/26/20 09:20 MCV 99 fl (80-97) H 04/26/20 09:20 MCH 30.7 pg (27.0-33.4) 04/26/20 09:20 MCHC 31.1 g/dL (32.0-36.0) L 04/26/20 09:20 RDW 14.2 % (11.5-14.0) H 04/26/20 09:20 Plt Count 214 10^3/uL (150-450) 04/26/20 09:20 Lymph % (Auto) Not Reportable 04/26/20 09:20 Prentiss % (Auto) Not Reportable 04/26/20 09:20 Eos % (Auto) Not Reportable 04/26/20 09:20 Baso % (Auto) Not Reportable 04/26/20 09:20 Absolute Neuts (auto) Not Reportable 04/26/20 09:20 Absolute Lymphs (auto) Not Reportable 04/26/20 09:20 Absolute Monos (auto) Not Reportable 04/26/20 09:20 Absolute Eos (auto) Not Reportable 04/26/20 09:20 Absolute Basos (auto) Not Reportable 04/26/20 09:20 Total Counted 100 04/26/20 09:20 Seg Neutrophils % Not Reportable 04/26/20 09:20 Seg Neuts % (Manual) 93 % (42-78) H 04/26/20 09:20 Band Neutrophils % 1 % (3-5) L 04/26/20 09:20 Lymphocytes % (Manual) 4 % (13-45) L 04/26/20 09:20 Monocytes % (Manual) 1 % (3-13) L 04/26/20 09:20 Eosinophils % (Manual) 0 % (0-6) 04/26/20 09:20 Basophils % (Manual) 1 % (0-2) 04/26/20 09:20 Abs Neuts (Manual) 13.7 10^3/uL (1.7-8.2) H 04/26/20 09:20 Abs Lymphs (Manual) 0.6 10^3/uL (0.5-4.7) 04/26/20 09:20 Abs Monocytes (Manual) 0.1 10^3/uL (0.1-1.4) 04/26/20 09:20 Absolute Eos (Manual) 0.0 10^3/uL (0.0-0.6) 04/26/20 09:20 Abs Basophils (Manual) 0.1 10^3/uL (0.0-0.2) 04/26/20 09:20 Platelet Comment ADEQUATE 04/26/20 09:20 Anisocytosis SLIGHT 04/26/20 09:20 Carbonic Acid 0.82 mmol/L (1.05-1.35) L 04/26/20 14:45 HCO3/H2CO3 Ratio 11:1 04/26/20 14:45 ABG pH 7.14 (7.35-7.45) L* 04/26/20 14:45 ABG pCO2 27.2 mmHg (35-45) L 04/26/20 14:45 ABG pO2 32.7 mmHg (80-100) L* 04/26/20 14:45 ABG HCO3 9.1 mmol/L (20-24) L 04/26/20 14:45 ABG Total CO2 9.9 mmol/L (21-25) L 04/26/20 14:45 ABG O2 Saturation 47.7 % (94-98) L 04/26/20 14:45 ABG Base Excess -18.4 mmol/L 04/26/20 14:45 VBG pH 7.08 (7.30-7.42) L* 04/26/20 12:51 VBG pCO2 40.1 mmHg (35-63) 04/26/20 12:51 VBG HCO3 11.6 mmol/L (20-32) L 04/26/20 12:51 VBG Base Excess -17.7 mmol/L 04/26/20 12:51 FiO2 ROOM AIR 04/26/20 14:45 Sodium 131.3 mmol/L (137-145) L 04/28/20 11:50 Potassium 3.7 mmol/L (3.6-5.0) 04/28/20 11:50 Chloride 101 mmol/L (98-107) 04/28/20 11:50 Carbon Dioxide 24 mmol/L (22-30) 04/28/20 11:50 Anion Gap 6 (5-19) 04/28/20 11:50 BUN 10 mg/dL (7-20) 04/28/20 11:50 Creatinine 0.76 mg/dL (0.52-1.25) 04/28/20 11:50 Est GFR ( Amer) > 60 (>60) 04/28/20 11:50 Est GFR (MDRD) Non-Af > 60 (>60) 04/28/20 11:50 Glucose 169 mg/dL (75-110) H 04/28/20 11:50 POC Glucose 168 mg/dL (70-110) H 04/28/20 11:00 Calcium 8.1 mg/dL (8.4-10.2) L 04/28/20 11:50 Total Bilirubin 1.0 mg/dL (0.2-1.3) 04/26/20 09:12 Direct Bilirubin 0.4 mg/dL (0.0-0.4) 04/26/20 09:12 Neonat Total Bilirubin Not Reportable 04/26/20 09:12 Neonat Direct Bilirubin Not Reportable 04/26/20 09:12 Neonat Indirect Bili Not Reportable 04/26/20 09:12 AST 23 U/L (14-36) 04/26/20 09:12 ALT 18 U/L (<35) 04/26/20 09:12 Alkaline Phosphatase 115 U/L (38-126) 04/26/20 09:12 Total Protein 7.2 g/dL (6.3-8.2) 04/26/20 09:12 Albumin 4.7 g/dL (3.5-5.0) 04/26/20 09:12 Lipase 86.5 U/L (23-300) 04/26/20 09:12 Urine Color STRAW 04/26/20 10:57 Urine Appearance SLIGHTLY-CLOUDY 04/26/20 10:57 Urine pH 5.0 (5.0-9.0) 04/26/20 10:57 Ur Specific [place] 1.021 04/26/20 10:57 Urine Protein 30 mg/dL (NEGATIVE) H 04/26/20 10:57 Urine Glucose (UA) >=500 mg/dL (NEGATIVE) H 04/26/20 10:57 Urine Ketones 80 mg/dL (NEGATIVE) H 04/26/20 10:57 Urine Blood NEGATIVE (NEGATIVE) 04/26/20 10:57 Urine Nitrite NEGATIVE (NEGATIVE) 04/26/20 10:57 Urine Bilirubin NEGATIVE (NEGATIVE) 04/26/20 10:57 Urine Urobilinogen NEGATIVE mg/dL (<2.0) 04/26/20 10:57 Ur Leukocyte Esterase TRACE (NEGATIVE) H 04/26/20 10:57 Urine WBC (Auto) 16 /HPF 04/26/20 10:57 Urine RBC (Auto) 3 /HPF 04/26/20 10:57 U Hyaline Cast (Auto) 1 /LPF 04/26/20 10:57 Squamous Epi Cells Auto 1 /HPF 04/26/20 10:57 Urine Mucus (Auto) RARE /LPF 04/26/20 10:57 Urine Ascorbic Acid NEGATIVE (NEGATIVE) 04/26/20 10:57 Influenza A (RT-PCR) NEGATIVE (NEGATIVE) 04/26/20 19:00 Influenza B (RT-PCR) NEGATIVE (NEGATIVE) 04/26/20 19:00 RSV (RT-PCR) NEGATIVE (NEGATIVE) 04/26/20 19:00 SARS-CoV-2 Rap RNA(RT-PCR) NEGATIVE (NEGATIVE) 04/26/20 19:00 Impressions: Abdomen/Pelvis CT 04/26/20 12:38 IMPRESSION: No evidence of significant urolithiasis or obstructive uropathy. Incidental finding of gaseous distention of a loop of small bowel within the left hemiabdomen is of uncertain etiology or significance, and may represent ileus, early enteritis, or developing small bowel obstruction. No findings to correlate with the patient's reported right flank pain. Abdomen/Pelvis CT 04/27/20 00:00 IMPRESSION: 1. No acute inflammatory or obstructive process identified. This exam was performed according to our departmental dose-optimization program, which includes automated exposure control, adjustment of the mA and/or kV according to patient size and/or use of iterative reconstruction technique. Esophagus X-Ray 04/28/20 00:00 IMPRESSION: MILD ESOPHAGEAL DYSMOTILITY. OTHERWISE UNREMARKABLE STUDY. Stroke Is this a Stroke Patient?: No Acute Heart Failure Is this a Heart Failure Patient?: No
[2020-04-28] MEDS ORDERED: INFLUENZA QUAD (6MOS+) 2020-21 VAC 0.5 ML SYR IM ONE ×2 (16:30→19:00)
== END 2020-04-28 17:02 | disposition home or self-care (01) | DRG 639 ==
LOC: ER 08:15 → EH 14:12 → 5 18:15
PROVIDERS: ADMIT Anesthesiology; ATTEND Internal Medicine
DX: E10.10 Type 1 diabetes mellitus with ketoacidosis without coma (principal); B00.9 Herpesviral infection, unspecified; R10.9 Unspecified abdominal pain; R13.10 Dysphagia, unspecified; E78.5 Hyperlipidemia, unspecified; I10 Essential (primary) hypertension; K21.9 Gastro-esophageal reflux disease without esophagitis; M19.90 Unspecified osteoarthritis, unspecified site; M79.7 Fibromyalgia; F32.9 Major depressive disorder, single episode, unspecified; Z11.59 Encounter for screening for other viral diseases; Z23 Encounter for immunization; Z79.4 Long term (current) use of insulin; Z79.899 Other long term (current) drug therapy; Z91.11 Patient's noncompliance with dietary regimen; Z87.891 Personal history of nicotine dependence; Z91.013 Allergy to seafood; Z88.8 Allergy status to other drugs, medicaments and biological substances; Z91.018 Allergy to other foods; Z91.011 Allergy to milk products; Z83.3 Family history of diabetes mellitus; Z82.49 Family history of ischemic heart disease and other diseases of the circulatory system
CPT/HCPCS: 36415; 74176; 74177; 74220; 80048; 80053; 81001; 82803; 82962; 83690; 85025; 87040; 90471; 90686; 93005; 93010; 96361; 96365; 96368; 96375; 99233; 99285; 0241U; C9803; G0008; J0696; J1815; J2270; J2765; J3490; J7030; J7042; J7050; S0119